=== PATIENT | female | born 1990 ===

== ENCOUNTER 2022-05-10 11:21 | Emergency (ER) | payer OTHER, SELFPAY ==
--- NOTE | ~2022-05-10 | XR_ITS ---
EXAMINATION: XR CHEST CLINICAL INFORMATION: Cough and shortness of breath. COMPARISON: None TECHNIQUE: 2 views of the chest were obtained. FINDINGS: No significant abnormality is noted involving the heart, lungs, mediastinum, bony thorax or soft tissues. XR/XR chest 2V IMPRESSION: Unremarkable examination.
[2022-05-10 12:34] VITALS: BP 149/93; PULSE 88; RESP 20; O2SAT 97; BMI 30.6
[2022-05-10 13:12] LABS: COVID-19 Test Negative (Negative); Strep A Nucleic Acid Negative (Negative)
--- NOTE | 2022-05-10 14:11 | ED.URI ---
HPI - URI/Sore Throat General Chief Complaint: Upper Respiratory Symptoms Stated Complaint: cough fever chest pressure Time Seen by Provider: 05/10/22 13:32 Source: patient Mode of arrival: ambulatory Limitations: no limitations History of Present Illness HPI Narrative: Patient presents emergency department for evaluation of upper respiratory symptoms. She reports 4 days of cough, sore throat, congestion. Her daughter has been ill with similar symptoms persist week. Has been unable to be seen at other emergency department urgent cares. Reports a history of asthma, that is only typically exacerbated during episodes of illness. She has had some associated shortness of breath at night when her coughing is particularly worse. Denies fevers, chills, nasal congestion, chest pain, palpitations, difficulty breathing, nausea, vomiting, abdominal pain. Related Data Previous Rx's Medication Instructions Recorded albuterol sulfate 90 mcg/actuation 2 puff inhalation Q4-6H PRN 05/10/22 aerosol inhaler shortness of breath or wheezing #6.7 grams prednisone 20 mg tablet 40 mg PO DAILY 5 days #10 tabs 05/10/22 Allergies Allergy/AdvReac Type Severity Reaction Status Date / Time ciprofloxacin [From CIPRO] Allergy Unknown SOB HIVES Unverified 04/03/20 18:58 latex [LATEX] Allergy Unknown HIVES Unverified 04/03/20 18:58 levofloxacin [From LEVAQUIN] Allergy Unknown SOB,HIVES Unverified 04/03/20 18:58 sulfamethoxazole Allergy Unknown SOB HIVES Unverified 04/03/20 18:58 [From BACTRIM] trimethoprim [From BACTRIM] Allergy Unknown SOB HIVES Unverified 04/03/20 18:58 Review of Systems Review of Systems: Constitutional: No fever. No chills. No weakness. Positive fatigue. ENT/ Mouth: No Ear Pain, no Nasal Congestion, positive sore throat, No Rhinorrhea, No Swallowing Difficulty Skin: No rash or itching. Cardiovascular: No chest pain. No palpitations. Respiratory: No shortness of breath. Positive cough. Positive sputum production. Gastrointestinal: No nausea. No vomiting. No diarrhea. No abdominal pain. Genitourinary: No burning micturition. No urinary frequency. Neurologic: No headache. No dizziness. No syncope. No numbness or tingling in the extremities. Musculoskeletal: No muscle pain. No back pain. No joint pain or stiffness. Yes all other systems are reviewed and are negative [facility] Past Medical History Attestation statement: The following information was validated with the patient. Source: old records reviewed Social History Social History Advance Directives: No Advance Directives Information Provided: No Physical Exam Vital Signs: Vital Signs: Last Vital Signs Pulse 88 05/10/22 12:34 Resp 20 05/10/22 12:34 BP 149/93 H 05/10/22 12:34 Pulse Ox 97 05/10/22 12:34 O2 Del Method 05/10/22 12:34 BMI result Body Mass Index 30.6 Vital signs have been reviewed as normal and appeared to be correct. Blood pressure normal.? Heart rate normal.? Respiration rate normal. Temperature normal.? Oxygen saturation normal. Appearance: Alert.?Oriented to person, place and time. No acute distress.?Normal affect. Eyes: Pupils equal, round and reactive to light.? ENT: TM normal bilaterally. Pharynx normal.?? Neck: Normal inspection.? Neck supple.??No cervical adenopathy CVS: Heart sounds normal. Normal heart rate and rhythm.? Pulses normal.?? Respiratory: No respiratory distress.? Lung sounds clear to auscultation bilaterally, diminished at the bases?? Abdomen: Soft and non-tender. Normoactive bowel sounds. Skin: Skin warm and dry.? Normal skin color.? ? Extremities: No lower extremity edema.? Neuro: Moves all extremities spontaneously. Sensation intact bilaterally. No motor deficits. Ambulates with normal steady gait. Course Course Course Narrative: Patient is a 31-year-old female with a past medical history of asthma, glucose intolerance, hypertension, presenting for evaluation of upper respiratory symptoms. COVID-19 testing negative. Strep testing negative. Chest x-ray reveals no acute cardiopulmonary process. At this time history and physical exam not consistent with ACS/PE/pneumonia. PERC negative. Well-appearing overall but does appear fatigued, she is nontoxic, afebrile, no tachycardia or tachypnea/hypoxia. Speaking clear full sentences, ambulatory with steady gait. Suspect upper respiratory infection at this time. Discussed conservative treatment including rest, hydration, Tylenol/ibuprofen as needed for fever and body aches, saline nasal spray, humidifier, [id number] cold medication. Given her history of asthma will prescribe albuterol inhaler as well as course of prednisone. Advised to follow-up with primary care provider as needed, discussed reasons to return back to the emergency department. All questions were answered. Patient discharged home in stable condition. MDM - URI/Sore Throat Medical Records Attestation: I reviewed the patient's medical records. Lab Data Attestation: I reviewed the patient's lab results. Labs: Lab Results 05/10/22 05/10/22 Range/Units 12:49 12:49 COVID-19 (ART) Negative (Negative) COVID-19 Clin Com See Note S. pyogenes GrpA SHEILA Negative (Negative) Imaging Data Chest x-ray: Radiologist's impression: XR/XR chest 2V IMPRESSION: Unremarkable examination. Discharge Plan Discharge Clinical Impression: Upper respiratory infection Patient Disposition: Home, Self-Care Instructions: Upper Respiratory Infection (ED) Additional Instructions: New prescriptions for an albuterol inhaler and prednisone were sent to pharmacy. Be sure to rest, stay well hydrated drinking plenty of fluids, eat small frequent meals. Tylenol/ibuprofen can be used as needed for fever/pain. Emcr-[id number]-[id number] cold medications may be helpful as well for symptoms. Saline nasal spray, humidifier may be helpful for nasal congestion. You may return to the emergency department with any new or worsening symptoms or concerns. Follow-up with your primary care provider as needed. Prescriptions: New albuterol sulfate 90 mcg/actuation HFA aerosol inhaler 2 puff inhalation Q4-6H PRN (Reason: shortness of breath or wheezing) Qty: 6.7 0RF prednisone 20 mg tablet 40 mg PO DAILY 5 Days Qty: 10 0RF Referrals: Physician,Unknown J [Primary Care Provider] - Interventions: ED Discharge Assessment Last Done: 05/10/22 15:02 Discharge Date/Time: 05/10/22 15:02
== END 2022-05-10 15:02 | disposition home or self-care (01) ==
PROVIDERS: Emergency Provider Emergency Medicine
DX: J06.9 Acute upper respiratory infection, unspecified (principal); R05.9 Cough, unspecified; Z20.822 Contact with and (suspected) exposure to COVID-19
CPT/HCPCS: 71046; 87635; 87651; 99282; 99283

== ENCOUNTER 2024-03-27 09:03 | Emergency (ER) | payer MEDICAID, SELFPAY ==
--- NOTE | ~2024-03-27 | XR_ITS ---
EXAMINATION: XR CHEST CLINICAL INFORMATION: Chest pain COMPARISON: 05/10/2020 TECHNIQUE: PA and lateral views of the chest FINDINGS: Diffuse subtle foci of mild subsegmental linear atelectasis is suspected in both lungs. No consolidation is identified. No pneumothorax or pleural effusion. Cardiac and mediastinal contours are normal. No acute osseous findings. XR/XR chest 2V IMPRESSION: No acute pulmonary findings. Few foci of subsegmental atelectasis. Electronically signed by: Steve Richards MD 03/27/2024 12:07 PM EDT
--- NOTE | 2024-03-27 09:07 | ECG_ITS ---
Test Reason : cp Blood Pressure : / mmHG Vent. Rate : 096 BPM Atrial Rate : 096 BPM P-R Int : 144 ms QRS Dur : 088 ms QT Int : 372 ms P-R-T Axes : 004 058 045 degrees QTc Int : 469 ms Normal sinus rhythm Normal ECG No previous ECGs available Referred By: Nadia Hoffman Electronically Signed By:RENATA HOUSTON
[2024-03-27 09:11] VITALS: BP 160/111; PULSE 114; RESP 20; TEMP 36.8; O2SAT 97; BMI 33.4
[2024-03-27 09:35] LABS: MANUAL DIFF FLAG NO
[2024-03-27 09:36] LABS: Basophils Percent Auto 0.4 % (0-2); Eosinophils Absolute Auto 0.2 X10*3/uL (0.0-0.4); Eosinophils Percent Auto 1.4 % (0-4); Hematocrit 41.9 % (37.0-47.0); Hemoglobin 14.5 g/dl (12.0-16.0); Imm Gran Abs Auto 0.04 X10*3/uL (0.00-0.03); Imm Gran Pct Auto 0.4 % (0.0-0.4); Lymphocytes Absolute Auto 1.5 X10*3/uL (1.2-4.9); Lymphocytes Percent Auto 13.3 % (20-40); Mean Corpuscular HGB Conc 34.6 g/dl (31.0-35.0); Mean Corpuscular Hemoglobin 31.6 pg (27.0-33.0); Mean Corpuscular Volume 91.3 fL (80.0-98.0); Mean Platelet Volume 11.2 fL (9.4-12.3); Monocytes Absolute Auto 0.7 X10*3/uL (0.1-1.2); Monocytes Percent Auto 6.7 % (2-11); Neutrophils Absolute Auto 8.5 x10*3/uL (2.0-8.3); Neutrophils Percent Auto 77.8 % (45-73); Platelet Count 165 X10*3/uL (160-400); Red Blood Count 4.59 X10*6/uL (4.20-5.50); Red Cell Distribution Width 13.1 % (11.0-16.0); White Blood Count 10.9 X10*3/uL (4.8-10.8)
--- NOTE | 2024-03-27 10:13 | ED.CHESTPAIN ---
HPI - Chest Pain General Chief Complaint: Upper Respiratory Symptoms Stated Complaint: Chest heaviness, congestion Time Seen by Provider: 03/27/24 09:44 Source: patient, RN notes reviewed and old records reviewed Mode of arrival: ambulatory Limitations: no limitations History of Present Illness ED Provider: Erin Juarez PA-C HPI narrative: 33 female with hx of anxiety, asthma, HTN, comes in with chest pain/heaviness/congestion, cough and chest tightness waking her up in a panic state at 0400am. Reports she has had asthma symptoms recently but has not sought any asthma related interventions from a provider- she just gets through that like I do with my panic and anxiety . States she had some nasal congestion a few days ago, maybe more like 4-5 days, this is really where it started and then 2 days ago this congestion moved into her chest. Reports her cough has been increasing and is productive x 2 days yellowish color, moderate amounts. Reports fevers, says was feeling warm but denies checking temperature. States short of breath when coughing. Denies recent sick contacts. States did not take her BP medication this am, opted to come into ED for sick visit instead. Denies any epigastric pain or discomfort. States she tried using some Vicks to no avail, this made her feel worse, and she was apprehensive to use her albuterol MDI- states using this makes her panic/anxiousness. MD complaint: chest heaviness Onset (ago): day(s) Timing of current episode: episodic Prior episodes: Yes Onset: during exertion and awoke with symptoms Pain radiation: none Quality: tightness and heaviness Relieving factors: rest Exacerbating factors: exertion, inspiration and movement Associated symptoms: cough Treatment prior to arrival: none Related Data Previous Rx's ?Medication ?Instructions ?Recorded albuterol sulfate 90 mcg/actuation 2 puff inhalation Q4-6H PRN 05/10/22 aerosol inhaler shortness of breath or wheezing #6.7 grams prednisone 20 mg tablet 40 mg (2 x 20 mg) PO DAILY 5 days 05/10/22 #10 tabs albuterol sulfate 0.63 mg/3 mL 0.63 mg (3 mL) inhalation Q6H #75 03/27/24 solution for nebulization mL azithromycin 250 mg tablet See Rx Instructions PO .COMPLEX #6 03/27/24 (Zithromax Z-Min) tabs hydrocodone-homatropine 5 mg-1.5 5 ml PO Q6H PRN cough #60 mL 03/27/24 mg/5 mL (5 mL) oral syrup (Hycodan) prednisone 20 mg tablet 40 mg (2 x 20 mg) PO DAILY #10 tabs 03/27/24 Allergies Allergy/AdvReac Type Severity Reaction Status Date / Time ciprofloxacin [From CIPRO] Allergy Unknown SOB HIVES Verified 03/27/24 09:14 latex [LATEX] Allergy Unknown HIVES Verified 03/27/24 09:14 levofloxacin [From LEVAQUIN] Allergy Unknown SOB,HIVES Verified 03/27/24 09:14 sulfamethoxazole Allergy Unknown SOB HIVES Verified 03/27/24 09:14 [From BACTRIM] trimethoprim [From BACTRIM] Allergy Unknown SOB HIVES Verified 03/27/24 09:14 Review of Systems Review of Systems: Yes all other systems are reviewed and are negative [facility] Social History Social History Advance Directives: No Advance Directives Information Provided: Yes Physical Exam Vital Signs: Vital Signs: Last Vital Signs Temp 98.6 F 03/27/24 13:48 Pulse 108 H 03/27/24 13:48 Resp 18 03/27/24 13:48 BP 163/94 H 03/27/24 13:48 Pulse Ox 96 03/27/24 13:48 O2 Del Method Room Air 03/27/24 13:48 BMI result Body Mass Index 33.4 Appearance: Alert. Oriented X3. No acute distress. Head: normocephalic, atraumatic. Eyes: Pupils equal, round and reactive to light. ENT: Pharynx normal. No tonsillar swelling or exudate. Neck: Normal inspection. Neck supple. CVS: Normal rhythm, tachycardic. Pulses normal. Respiratory: No respiratory distress at rest, hacking cough- nonproductive, breath sounds CTA, dim bases Abdomen: Soft and nontender. +BS x4 Skin: Skin warm and dry. Normal skin color. Normal skin turgor. No rashes. Extremities: No lower extremity edema. No joint swelling. Neuro/psych: Oriented X 3. No motor deficit. No sensory deficit. CN II-XII intact. Normal speech and cognition. Medications Administered Discontinued Medications Generic Name Dose Route Start Last Admin Trade Name Nicho PRN Reason Stop Dose Admin Albuterol/Ipratropium 3 ml 03/27/24 12:24 03/27/24 12:27 Albuterol/Iprat 2.5/0.5mg 3 Ml Ampul.Neb INHALE 03/27/24 12:25 3 ml ONCE ONE Administration Amlodipine Besylate 5 mg 03/27/24 10:24 03/27/24 10:34 Amlodipine Besylate 5 Mg Tablet PO 03/27/24 10:25 5 mg ONCE ONE Administration Protocol Guaifenesin/Dextromethorphan 5 ml 03/27/24 10:27 03/27/24 10:34 Guaifenesin Dm 100/10/5 Ml 5 Ml Syrup PO 03/27/24 10:28 5 ml ONCE ONE Administration Prednisone 40 mg 03/27/24 11:48 03/27/24 12:09 Prednisone 20 Mg Tablet PO 03/27/24 11:49 40 mg ONCE ONE Administration Medical Decision Making Medical Decision Making MDM Narrative: 33 female with hx of anxiety, asthma, HTN, comes in with chest pain/heaviness/congestion, cough and chest tightness waking her up in a panic state at 0400am. At present is not toxic appearing, has intermittent coughing fits during assessment, not short of breath until speaking and explaining current situation. Frequently references anxiety and asthma histories during encounters, states has had some asthma symptoms recently as last week although denies seeking treatment for those asthma symtpoms. Reports has albuterol MDI which is 2 years , and this causes her increased anxiety- she reports preference of machine breathing treatments of the MDI. Lungs are CTA with diminished bases, no wheezing noted. Cough is non-productive while in ED, pt does uses excessive force to cough and this causes her to expel small amount of sputum and saliva into emesis bag. Afebrile, CXR reviewed, no evidence of PNA. Viral serology negative, labs show mild leukocytic, EKG is non-eschemic. Requested breathing treatment, dose of prednisone also provided at her request. Pt was given normal HTN medication and dose, as well as cough medicince with codeine to help current symptoms. On re-eval, pt is symptomatically somewhat improved per her report, appears to be more at rest, coughing has diminshed, is not SOB, or tachypneic. Lung sounds improved CTA all marie. Will treat for acute bronchitis. Return to clinic precautions, and red flags symptoms reviewed and discussed. Differential Diagnosis Differential Diagnoses: The differential diagnosis associated with the presentation includes PNA, bronchitis, asthma exacerbation, URI, FLU, COVID. Low clinical suspicions for OK and PE. Admission/Observation Consideration of admission/observation: Escalation of care including admission/observation considered Lab Data MDM Lab Attestation statement: I reviewed the patient's lab results. Mild leukocytosis 03/27/24 09:29 03/27/24 09:29 Labs: Lab Results 03/27/24 Range/Units 09:29 WBC 10.9 H (4.8-10.8) X10*3/uL RBC 4.59 (4.20-5.50) X10*6/uL Hgb 14.5 (12.0-16.0) g/dl Hct 41.9 (37.0-47.0) % MCV 91.3 (80.0-98.0) fL MCH 31.6 (27.0-33.0) pg MCHC 34.6 (31.0-35.0) g/dl RDW 13.1 (11.0-16.0) % Plt Count 165 (160-400) X10*3/uL MPV 11.2 (9.4-12.3) fL Immature Gran % (Auto) 0.4 (0.0-0.4) % Neut % (Auto) 77.8 H (45-73) % Lymph % (Auto) 13.3 L (20-40) % [place] % (Auto) 6.7 (2-11) % Eos % (Auto) 1.4 (0-4) % Baso % (Auto) 0.4 (0-2) % Lymph # (Auto) 1.5 (1.2-4.9) X10*3/uL [place] # (Auto) 0.7 (0.1-1.2) X10*3/uL Eos # (Auto) 0.2 (0.0-0.4) X10*3/uL Baso # (Auto) 0.0 (0.0-0.2) X10*3/uL Abs Immat Gran (auto) 0.04 H (0.00-0.03) X10*3/uL Absolute Neuts (auto) 8.5 H (2.0-8.3) x10*3/uL Absolute Nucleated RBC 0.000 (0.0-0.012) X10*3/uL Nucleated RBC % (auto) 0.0 (0.0-0.2) /100WBC Sodium 138 (135-145) mmol/L Potassium 4.0 (3.3-5.1) mmol/L Chloride 109 H (96-108) mmol/L Carbon Dioxide 20 L (22-29) mmol/L Anion Gap 13 (12-20) BUN 9 (9-16) mg/dL Creatinine 0.74 (0.5-1.4) mg/dL Estim Creat Clear Calc 102.7 Estimated GFR > 60 Random Glucose 123 H (60-115) mg/dL Calcium 9.6 (8.4-10.2) mg/dL Magnesium 2.0 (1.6-2.6) mg/dL Total Bilirubin 0.7 (0.0-1.0) mg/dL AST 27 (5-31) U/L ALT 58 H (0-31) U/L Alkaline Phosphatase 61 (39-117) U/L Troponin I High Sens 6.6 (<3.5-17.0) ng/L Total Protein 7.1 (6.5-8.0) g/dL Albumin 4.3 (3.5-5.0) g/dL Beta HCG, Quant < 2 mIU/mL Influenza Type A (PCR) NEGATIVE (Negative) Influenza Type B (PCR) NEGATIVE (Negative) RSV RNA Qual (PCR) NEGATIVE (Negative) SARS-CoV-2 RNA (RT-PCR) NEGATIVE (Negative) Independent Interpretation I performed an independent interpretation of an: EKG and Plain X-Ray Interpretation: EKG with normal sinus rhythm, ventricular rate 96 beats per minute, no ST segment elevations or depressions. No ectopy. Normal QTC X-ray reviewed, no focal opacity to suggest pneumonia Radiology Impression Discussion of test interpretation with radiology: I have reviewed the radiologist's reading. Independent Historian Clinical information obtained from an independent historian. History obtained from or confirmed by: Spouse External Record Review External record reviewed: Outpatient record, Prior outpatient labs and Prior outpatient radiology Tests considered The following testing was considered but not selected: CTA considered however low clinical suspicion for pulmonary embolism Prescription Management I considered prescription management with: Pain Medication and Antibiotic Chronic Conditions Patient?s care impacted by: Hypertension and Other (asthma) Critical Care Time Critical Care Time Critical Care Time: No Discharge Plan Discharge Clinical Impression: Bronchitis Patient Disposition: Home, Self-Care Instructions: Acute Bronchitis (ED) Additional Instructions: Your chest x-ray today did not show any evidence of pneumonia. You tested negative for COVID, flu, RSV. Your lab work was unremarkable. Your EKG did not show any concerning changes. Take the prescribed antibiotics as directed, complete the entire course and do not miss any doses Take the prescribed steroids for inflammation in your lungs. Start them tomorrow morning, your given 1st dose today in the ER. Use the albuterol nebulizer treatments every 4-6 hours as needed for shortness of breath and wheezing. Take the prescribed cough medication as needed for coughing, this can make you tired as it has a narcotic in it. Do not drive after taking this medication. Follow-up with your primary care doctor. If you develop new or worsening symptoms call 911 or come back to the ER for further evaluation. Prescriptions: New prednisone 20 mg tablet 40 mg PO DAILY Qty: 10 0RF azithromycin [Zithromax Z-Min] 250 mg tablet See Rx Instructions .ROUTE .COMPLEX Qty: 6 0RF Rx Instructions: take 500 mg today (day 1), then 250 mg for 4 days (days 2-5) albuterol sulfate 0.63 mg/3 mL solution for nebulization 0.63 mg inhalation Q6H Qty: 75 0RF hydrocodone-homatropine [Hycodan] 5-1.5 mg/5 mL (5 mL) syrup 5 ml PO Q6H PRN (Reason: cough) Qty: 60 0RF Rx Instructions: Partial Fill upon patient request. No Action albuterol sulfate 90 mcg/actuation HFA aerosol inhaler 2 puff inhalation Q4-6H PRN (Reason: shortness of breath or wheezing) Qty: 6.7 0RF prednisone 20 mg tablet 40 mg PO DAILY 5 Days Qty: 10 0RF Stand Alone Forms: Work/School Release Interventions: ED Discharge Assessment Last Done: 03/27/24 13:48 Discharge Date/Time: 03/27/24 13:48 Print Language: Kinyarwanda
[2024-03-27 10:17] LABS: Influenza A PCR NEGATIVE (Negative); Influenza B PCR NEGATIVE (Negative); Resp Syncy Virus RNA Qual PCR NEGATIVE (Negative); SARS COV2 PCR INHOUSE NEGATIVE (Negative)
[2024-03-27 10:19] LABS: Alanine Aminotransferase 58 U/L (0-31); Albumin Level 4.3 g/dL (3.5-5.0); Alkaline Phosphatase 61 U/L (39-117); Anion Gap 13 (12-20); Aspartate Amino Transferase 27 U/L (5-31); Bilirubin Total 0.7 mg/dL (0.0-1.0); Blood Urea Nitrogen 9 mg/dL (9-16); Calcium 9.6 mg/dL (8.4-10.2); Carbon Dioxide 20 mmol/L (22-29); Chloride 109 mmol/L (96-108); Creatinine Clr Calc Pharmacy 102.7; Estimated Glomerular Filt Rate > 60; Glucose Random 123 mg/dL (60-115); Sodium 138 mmol/L (135-145); Total Protein 7.1 g/dL (6.5-8.0)
[2024-03-27 10:20] LABS: HCG Quantitative < 2 mIU/mL; Troponin-I High Sensitivity 6.6 ng/L (<3.5-17.0)
[2024-03-27 10:34] VITALS: BP 159/103
[2024-03-27] MEDS: guaiFENesin DM 100/10/5 ML 5 ML SYRUP PO (10:34)
[2024-03-27] MEDS: amLODIPine Besylate 5 MG TABLET PO (10:34)
[2024-03-27 12:08] VITALS: BP 160/103; PULSE 106; RESP 20; TEMP 37; O2SAT 96
[2024-03-27] MEDS: predniSONE 20 MG TABLET 40 MG PO (12:09)
[2024-03-27] MEDS: Albuterol/Iprat 2.5/0.5MG 3 ML AMPUL.NEB INHALE (12:27)
[2024-03-27 12:30] VITALS: PULSE 89; RESP 18
[2024-03-27 13:40] VITALS: BP 163/94; PULSE 108; RESP 18; O2SAT 96
[2024-03-27 13:48] VITALS: BP 163/94; PULSE 108; RESP 18; TEMP 37; O2SAT 96
== END 2024-03-27 13:48 | disposition home or self-care (01) ==
PROVIDERS: Physician Assistant Medical; Emergency Provider Emergency Medicine Emergency Medical Services
DX: J40 Bronchitis, not specified as acute or chronic (principal); Z03.818 Encounter for observation for suspected exposure to other biological agents ruled out; R05.9 Cough, unspecified; Z79.899 Other long term (current) drug therapy
CPT/HCPCS: 0241U; 71046; 80053; 83735; 84484; 84702; 85025; 93005; 94640; 99284

== ENCOUNTER 2025-01-14 11:12 | Inpatient (IN) | payer MEDICAID, SELFPAY ==
[2025-01-14] VITALS (7 sets, daily range): BP systolic 104–131; BP diastolic 40–81; PULSE 93–110; RESP 15–18; TEMP 36.2–37.1; O2SAT 94–97; BMI 31.2
--- NOTE | ~2025-01-14 | XR_ITS ---
EXAMINATION: XR CHEST CLINICAL INFORMATION: cough COMPARISON: March 27, 2024 TECHNIQUE: 2 views of the chest were obtained. FINDINGS: Heart and the stomach contours are within normal limits. Lungs are clear and well expanded. There is no sign of a pleural effusion. Bony elements are unremarkable. XR/XR chest 2V IMPRESSION: No acute disease Electronically signed by: Andre Callejas MD 01/14/2025 01:08 PM EDT
--- NOTE | ~2025-01-14 | CT_ITS ---
EXAMINATION: CT ANGIOGRAM CHEST CLINICAL INFORMATION: Dyspnea, pleuritic pain. COMPARISON: None available. TECHNIQUE: Multiple axial images were obtained through the chest after the administration of 50 mL of Omnipaque 350 intravenous contrast. Extensive vascular post-processing including two-dimensional and three-dimensional reformatted images were created and reviewed on an independent workstation. This CT examination was performed using dose optimization techniques as appropriate, variously including the following: *Automated exposure control *Adjustment of mA and/or kV according to patient size (this includes techniques or standardized protocols for targeted exams where dose is matched to indication/reason for exam; i.e. extremities or head) *Use of iterative reconstruction technique DLP: FINDINGS: VASCULAR: There is good opacification of pulmonary artery and its branches without intraluminal filling defect or narrowing. Thoracic aorta is of normal caliber. There is no aneurysm or dissection seen. There is a three-vessel branching of the aortic arch. SVC is normal caliber. Heart size is normal. No pericardial effusion seen. Nonvascular: Lungs are expanded with patchy reticular nodular and groundglass nodules in right upper lobe. No abnormal size mediastinal or hilar lymph nodes. The central trachea and the bronchi is widely patent. Thyroid lobes are symmetrical and normal. There is no pleural effusion, thickening or plaques. The axilla and the chest wall is unremarkable. Visualized liver is diffusely originated no focal lesion seen. Gallbladder, spleen, pancreas and adrenal glands unremarkable. No aggressive lytic or sclerotic process seen. CT/CT angio chest PE protocol IMPRESSION: No evidence of PE. No aortic aneurysm or dissection. Right upper lobe groundglass nodules and reticular changes likely developing infiltrate or interstitial pneumonitis. Rest of the lungs are clear. No abnormal mediastinal or hilar adenopathy. Fleischner guidelines were followed. Electronically signed by: Jerel Esqueda MD 01/14/2025 04:44 PM EDT
--- NOTE | ~2025-01-14 | CT_ITS ---
CLINICAL HISTORY: intractable vomiting, abd pain CT abdomen and pelvis with contrast Comparison: None provided Findings: The lung bases exhibit patchy and somewhat nodular airspace densities bilaterally. The liver, gallbladder, spleen, adrenal glands and pancreas are unremarkable. Kidneys, ureters and bladder are unremarkable. No bowel obstruction or free air. Mild diverticulosis. No evidence of diverticulitis. Normal appendix. The uterus is unremarkable. Left adnexal cysts. No acute osseous finding. Impression: Abnormal patchy bibasilar densities consistent with multifocal pneumonia. Follow-up recommended to ensure resolution. No definite acute process within the abdomen or pelvis. Left adnexal cysts are noted. This document has been electronically signed by: Iván Tovar MD on 01/15/2025 18:46:23
--- NOTE | 2025-01-14 11:16 | ECG_ITS ---
Test Reason : chest pain Blood Pressure : */* mmHG Vent. Rate : 96 BPM Atrial Rate : 96 BPM P-R Int : 138 ms QRS Dur : 88 ms QT Int : 360 ms P-R-T Axes : 10 67 53 degrees QTcB Int : 454 ms Normal sinus rhythm Normal ECG When compared with ECG of 27-Mar-2024 09:53, No significant change was found Referred By: Mona Valenzuela Electronically Signed By: KARI DINERO MD
--- NOTE | 2025-01-14 12:09 | ED.GENADULT ---
HPI - General Adult General Chief complaint: Chest Pain Stated complaint: vomiting chills fever chest pain Time Seen by Provider: 01/14/25 12:42 Source: patient and old records reviewed Mode of arrival: ambulatory Limitations: no limitations History of Present Illness ED Provider: DOROTEO WEEMS narrative: 34yo female with PMH of asthma, recent perdicarditis, EF 20-25% at [facility] with normal coronaries - cath done at [facility] also had ECHO 12/25 she is still pending workup for other causes per notes including amyloidosis. 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 She tells me she has a brother who from CHF. She has no hx of cocaine abuse or alcohol abuse. She reports for the past two days she has worsening breathing, sputum production, fever to 101 - no sick contacts. She notes she has not gained weight and has no leg swelling. She notes she has not taken her pills today due to coughing and vomiting as well. Has yellow sputum. she does tell me preceding her cardiomyopathy dx she was diagnosed with rhinovirus complaint: dyspnea, fevers, cough Onset (ago): day(s) (2) Location: chest Radiation: non-radiation Severity: mild Quality: aching Pain Consistency: intermittent Relieving factors: none Exacerbating factors: other (coughing. ) Associated symptoms: fever/chills, loss of appetite, nausea/vomiting and shortness of breath Treatments prior to arrival: none Related Data Previous Rx's ?Medication ?Instructions ?Recorded albuterol sulfate 90 mcg/actuation 2 puff inhalation Q4-6H PRN 05/10/22 aerosol inhaler shortness of breath or wheezing #6.7 grams prednisone 20 mg tablet 40 mg (2 x 20 mg) PO DAILY 5 days 05/10/22 #10 tabs albuterol sulfate 0.63 mg/3 mL 0.63 mg (3 mL) inhalation Q6H #75 03/27/24 solution for nebulization mL azithromycin 250 mg tablet See Rx Instructions PO .COMPLEX #6 03/27/24 (Zithromax Z-Min) tabs benzonatate 100 mg capsule 100 mg PO TID PRN cough #20 caps 03/27/24 hydrocodone-homatropine 5 mg-1.5 5 ml PO Q6H PRN cough #60 mL 03/27/24 mg/5 mL (5 mL) oral solution (Hycodan) prednisone 20 mg tablet 40 mg (2 x 20 mg) PO DAILY #10 tabs 03/27/24 Allergies Allergy/AdvReac Type Severity Reaction Status Date / Time ciprofloxacin (From CIPRO) Allergy Unknown SOB HIVES Verified 01/14/25 12:15 latex (LATEX) Allergy Unknown HIVES Verified 01/14/25 12:15 levofloxacin (From LEVAQUIN) Allergy Unknown SOB,HIVES Verified 01/14/25 12:15 sulfamethoxazole (From Allergy Unknown SOB HIVES Verified 01/14/25 12:15 BACTRIM) trimethoprim (From BACTRIM) Allergy Unknown SOB HIVES Verified 01/14/25 12:15 Review of Systems Review of Systems: Constitutional : pos Fever, No Chills ENT/Mouth : No Hoarseness, No sore throat, No Rhinorrhea Eyes: No Redness, No Discharge, No Vision Changes Cardiovascular : No Chest Pain, positive SOB, positive Dyspnea on Exertion, No Edema Respiratory : positive Cough, pos Sputum, positive Wheezing, Gastrointestinal : No Nausea, No Vomiting, No Diarrhea, No abdominal Pain Genitourinary : No Dysuria, No Hematuria Musculoskeletal : No joint pain, No Myalgias Skin : No rash Neuro : No Weakness, No Numbness, No Headache Psych : No anxiety, depression Heme/Lymph: No Bruising, No Bleeding Endocrine : No Polyuria, No Polydipsia All other systems reviewed and are negative [facility] Past Medical History Attestation statement: The following information was validated with the patient. Source: old records reviewed Medical History Nonischemic cardiomyopathy Asthma Social History Social History (Updated 01/14/25 @ 13:46 by Mona Valenzuela DO) Patient Tobacco Use Status: Never used Tobacco Advance Directives: No Advance Directives Information Provided: Yes Do you have a plan to hurt others: No Plan Physical Exam ED Vital Signs: Vital Signs - 24 hr 01/14/25 12:11 01/14/25 13:54 01/14/25 14:09 Temperature 97.6 F Pulse Rate 94 94 Respiratory Rate 16 16 Blood Pressure 131/81 131/52 L Pulse Oximetry 97 Oxygen Delivery Method Room Air 01/14/25 15:40 01/14/25 16:54 Temperature 98.7 F Pulse Rate 110 H Respiratory Rate 15 Blood Pressure 106/40 L Pulse Oximetry 95 95 Oxygen Delivery Method Room Air BMI result Body Mass Index 31.2 Appearance: Alert. Oriented X3. Mild acute distress. Eyes: Pupils equal, round and reactive to light. ENT: Pharynx normal. Neck: Normal inspection. Neck supple. CVS: tachycardic heart rate and rhythm. Pulses normal. Respiratory:Mild respiratory distress - tachypneic, splinting Breath sounds diminished but no rales noted Abdomen: Soft and nontender. Skin: Skin warm and dry. Normal skin color. Normal skin turgor. Extremities: No lower extremity edema. Neuro: Oriented X 3. No motor deficit. No sensory deficit. CN2-12 intact Course Course Course Narrative: RME performed by Nadia Hoffman PA-C. Patient is a 34 year old assigned female at presenting to the emergency department with nausea, vomiting, and feeling generally unwell. Patient states that over the last 2 days she has had nausea, vomiting, and felt generally unwell, unable to keep anything down. Detailed physical exam and review of systems are deferred to the curam developer. EKG, labs, swabs ordered. Patient placed back in the waiting room pending room availability and results. Reevaluation(s) Reevaluation #1: patient drinking fluids but still has cough VS stable Reevaluation #2: still tachy and wheezy with some cough she is able to tolerate some PO she appears tachypneic at rest Medications Administered Discontinued Medications Generic Name Dose Route Start Last Admin Trade Name Alexq PRN Reason Stop Dose Admin Albuterol Sulfate 2.5 mg/ 0 mg 01/14/25 14:06 01/14/25 14:08 Albuterol/Ipratropium 3 ml INHALE 01/14/25 14:07 1 dose ONCE ONE Administration Furosemide 20 mg 01/14/25 13:07 01/14/25 13:54 Furosemide 20 Mg/2 Ml Vial IVPUSH 01/14/25 13:08 20 mg ONCE ONE Administration Protocol Iohexol 100 ml 01/14/25 14:55 01/14/25 14:58 Iohexol 350 Mg/Ml 100 Ml Infus..Btl IV 01/14/25 14:56 65 ml ONCE ONE Administration Methylprednisolone Sodium Succinate 60 mg 01/14/25 13:32 01/14/25 13:54 Methylprednisolone Sod Succ 125 Mg/2 Ml Vial IVPUSH 01/14/25 13:33 60 mg ONCE ONE Administration Ondansetron HCl 4 mg 01/14/25 13:07 01/14/25 13:53 Ondansetron Hcl 4 Mg/2 Ml Vial IVPUSH 01/14/25 13:08 4 mg ONCE ONE Administration Procedures Procedure Narrative Procedure Narrative: EMERGENCY ULTRASOUND INTERPRETATION-Limited Echocardiography?- limited as patient kept coughing and could not maintain The study reveals:? Impression: depressed LV FUNCTION, NO RV DYSFUNCTION, NO PERICARDIAL EFFUSION Emergent Cardiac for Indication:?dyspnea hx of pericardial effusion Views Used: PLAX, PSSA, A4, SX, IVC Pericardial Effusion/Tamponade Findings: NONE Global LV Fxn: depressed Performed by: DOROTEO Date: 01/14/25 Time: 138pm CPT:11545; Reference Codes? [email or web address] Medical Decision Making Medical Decision Making MDM Narrative: 34yo female with PMH of asthma, recent perdicarditis, EF 20-25% at [facility] with normal coronaries - cath done at [facility] also had ECHO 12/25 now here with no leg edema no rales on exam and no weight gain but reports fevers, sputum and cough. She has rib pain as well and it hurts to breathe. At this time will obtain bedside ECHO, CXR, CTA:PE for VTE/pneumonia and obtain BNP and troponin. I am going to give her lasix, nebs, IV steroids given her asthma and diminished lung sounds. She will get US to eval for large pericardial effusion. She will need IV lasix as well given she could not take her dose this AM. Differential Diagnosis Differential Diagnoses: The differential diagnosis associated with the presentation includes asthma, CHF, VTE, pleurisy, pericardial effusion, viral syndrome Admission/Observation Consideration of admission/observation: Escalation of care including admission/observation considered still tachy and tachypnea at baseline CTA shows possible start of pneumonia - infection suspected at 453pm start IV abx/cultures and lactic acid patient states she is too weak and unable to take her medications she states she doesn't feel safe going home. Consult Healthcare Provider Management of the patient was discussed with: Hospitalist (will admit) Lab Data MDM Lab Attestation statement: I reviewed the patient's lab results. 01/14/25 12:32 01/14/25 12:32 Labs: Lab Results 01/14/25 Range/Units 12:32 WBC 7.7 (4.8-10.8) X10*3/uL RBC 4.70 (4.20-5.50) X10*6/uL Hgb 14.7 (12.0-16.0) g/dl Hct 41.8 (37.0-47.0) % MCV 88.9 (80.0-98.0) fL MCH 31.3 (27.0-33.0) pg MCHC 35.2 H (31.0-35.0) g/dl RDW 14.2 (11.0-16.0) % Plt Count 153 L (160-400) X10*3/uL MPV 11.3 (9.4-12.3) fL Immature Gran % (Auto) 0.5 H (0.0-0.4) % Neut % (Auto) 77.1 H (45-73) % Lymph % (Auto) 11.5 L (20-40) % Price % (Auto) 10.0 (2-11) % Eos % (Auto) 0.6 (0-4) % Baso % (Auto) 0.3 (0-2) % Lymph # (Auto) 0.9 L (1.2-4.9) X10*3/uL Price # (Auto) 0.8 (0.1-1.2) X10*3/uL Eos # (Auto) 0.1 (0.0-0.4) X10*3/uL Baso # (Auto) 0.0 (0.0-0.2) X10*3/uL Abs Immat Gran (auto) 0.04 H (0.00-0.03) X10*3/uL Absolute Neuts (auto) 5.9 (2.0-8.3) x10*3/uL Absolute Nucleated RBC 0.000 (0.0-0.012) X10*3/uL Nucleated RBC % (auto) 0.0 (0.0-0.2) /100WBC ESR 20 (0-20) MM/HR Sodium 137 (135-145) mmol/L Potassium 3.7 (3.3-5.1) mmol/L Chloride 106 (96-108) mmol/L Carbon Dioxide 20 L (22-29) mmol/L Anion Gap 15 (12-20) BUN 10 (9-16) mg/dL Creatinine 0.77 (0.5-1.4) mg/dL Estim Creat Clear Calc 94.3 Estimated GFR > 60 Random Glucose 88 (60-115) mg/dL Calcium 9.3 (8.4-10.2) mg/dL Magnesium 1.9 (1.6-2.6) mg/dL Total Bilirubin 0.6 (0.0-1.0) mg/dL AST 28 (5-31) U/L ALT 26 (0-31) U/L Alkaline Phosphatase 66 (39-117) U/L Troponin I High Sens 6.5 (<3.5-17.0) ng/L C-Reactive Protein 9.34 H (< or = 0.50) mg/dL B-Natriuretic Peptide 168 H (<100) pg/mL Total Protein 7.2 (6.5-8.0) g/dL Albumin 4.5 (3.5-5.0) g/dL Beta HCG, Quant < 2 mIU/mL Influenza Type A (PCR) NEGATIVE (Negative) Influenza Type B (PCR) NEGATIVE (Negative) RSV RNA Qual (PCR) NEGATIVE (Negative) SARS-CoV-2 RNA (RT-PCR) NEGATIVE (Negative) Independent Interpretation I performed an independent interpretation of an: EKG, Plain X-Ray (no consolidation) and CT Scan (developing RUL pneumonia) Interpretation: Rate: 96 Rhythm: NSR Confluence: normal Normal P waves. Normal CATINA. Normal QRS complex. ST T wave : normal no KATHI, inverted t wave V1 qTC: 454 prior studies: no acute ischemia The study has been interpreted contemporaneously by me. . Radiology Impression Discussion of test interpretation with radiology: I have reviewed the radiologist's reading. External Record Review External record reviewed: Outpatient record Discharge Plan Discharge Clinical Impression: Atypical chest pain, Pneumonitis Asthma Qualifiers: Asthma severity: moderate Asthma persistence: persistent Asthma complication type: with acute exacerbation Qualified Code(s): J45.41 - Moderate persistent asthma with (acute) exacerbation Patient Disposition: Admitted As Inpatient Print Language: Italian
[2025-01-14 12:37] LABS: MANUAL DIFF FLAG NO
[2025-01-14 12:39] LABS: Hematocrit 41.8 % (37.0-47.0); Hemoglobin 14.7 g/dl (12.0-16.0); Imm Gran Abs Auto 0.04 X10*3/uL (0.00-0.03); Imm Gran Pct Auto 0.5 % (0.0-0.4); Lymphocytes Absolute Auto 0.9 X10*3/uL (1.2-4.9); Mean Corpuscular HGB Conc 35.2 g/dl (31.0-35.0); Mean Corpuscular Hemoglobin 31.3 pg (27.0-33.0); Mean Corpuscular Volume 88.9 fL (80.0-98.0); NRBC Abs Auto 0.000 X10*3/uL (0.0-0.012); NRBC Pct Auto 0.0 /100WBC (0.0-0.2); Platelet Count 153 X10*3/uL (160-400); Red Blood Count 4.70 X10*6/uL (4.20-5.50); White Blood Count 7.7 X10*3/uL (4.8-10.8)
[2025-01-14 12:53] LABS: Alanine Aminotransferase 26 U/L (0-31); Albumin Level 4.5 g/dL (3.5-5.0); Alkaline Phosphatase 66 U/L (39-117); Anion Gap 15 (12-20); Aspartate Amino Transferase 28 U/L (5-31); Blood Urea Nitrogen 10 mg/dL (9-16); Calcium 9.3 mg/dL (8.4-10.2); Carbon Dioxide 20 mmol/L (22-29); Chloride 106 mmol/L (96-108); Creatinine Clr Calc Pharmacy 94.3; Estimated Glomerular Filt Rate > 60; Magnesium 1.9 mg/dL (1.6-2.6); Potassium 3.7 mmol/L (3.3-5.1); Sodium 137 mmol/L (135-145); Total Protein 7.2 g/dL (6.5-8.0)
[2025-01-14 12:59] LABS: B Type Natriuretic Peptide 168 pg/mL (<100)
[2025-01-14 13:00] LABS: Troponin-I High Sensitivity 6.5 ng/L (<3.5-17.0)
--- OUTSIDE RECORDS SUMMARY | 2025-01-14 13:12 | XMS_ITS ---
Author Organization [facility] Address [address] [place] [address] Care Team Providers Care Marketing Communications Assistant Name Role Phone Mya Palm PA-C Primary Care Provider [phone] [id number] Program Status:Enrolled (Active) Start date:12/23/2023 Enrollment date:12/23/2023 Case Team Name Relationship Phone Mya Miranda LPN(Responsible Staff) [phone] Continued Care and Services Coordination
--- OUTSIDE RECORDS SUMMARY | 2025-01-14 13:13 | XMS_ITS | Clinical Summary ---
Author Organization [address] Address [address] [place] [id number] Phone Care Team Providers Care Mercantile Reporter Name Role Phone Mya Palm Primary Care Provider [phone] Allergies Active Allergy Reactions Criticality Noted Date Comments Sulfamethoxazole-Trimet hoprim Shortness of breath,Swelling,Wheez ing High 09/19/2024 Metronidazole 09/19/2024 Latex Anaphylaxis High 01/11/2022 Muscle weakness Levofloxacin Hives,Rash,Pain 09/19/2024 Medications albuterol HFA (PROVENTIL HFA;VENTOLIN HFA) 108 (90 Base) MCG/ACT inhaler Sig - Route: Inhale 2 Puffs into the lungs 4 times daily as needed for Cough, Wheezing or Shortness of Breath. Active mirtazapine (REMERON) 7.5 mg tablet Take 1 tablet (7.5 mg total) by mouth at bedtime. Active aspirin 81 mg capsule Take 81 mg by mouth 1 (one) time each day. 5 Active budesonide-for moteroL (SYMBICORT) 160-4.5 mcg/actuation inhaler Inhale 2 puffs by mouth 2 times daily. 5 Active hydrOXYzine HCL (ATARAX) 10 mg tablet Take 1 tablet (10 mg total) by mouth 3 (three) times a day if needed for anxiety. 5 Active metoprolol tartrate (LOPRESSOR) 25 mg tablet Take 1 tablet (25 mg total) by mouth 2 (two) times a day. 60 each 5 12/27/19 26 Active furosemide (LASIX) 40 mg tablet Take 1 tablet (40 mg total) by mouth 1 (one) time each day. 30 each 5 01/27/20 25 Active valsartan (DIOVAN) 80 mg tablet Take 1 tablet (80 mg total) by mouth 1 (one) time each day. 30 each 5 12/27/19 26 Active lisinopriL (PRINIVIL,ZEST RIL) 5 mg tablet Take 1 tablet (5 mg total) by mouth 1 (one) time each day. 12/27/19 25 Discontin ued(Stop Taking at Discharge ) LORazepam (ATIVAN) 0.5 mg tablet Take 1 tablet (0.5 mg total) by mouth every 8 (eight) hours if needed for anxiety. 12/27/19 25 Discontin ued(Stop Taking at Discharge ) metroNIDAZOLE (METROGEL) 0.75 % (37.5mg/5 gram) vaginal gel Si application for 5 nights at bedtime 12/27/19 25 Discontin ued(Stop Taking at Discharge ) amLODIPine-olm esartan (HERLINDA) 5-20 mg per tablet Take 1 tablet by mouth 1 (one) time each day. 5 12/27/19 25 Discontin ued(Stop Taking at Discharge ) metoprolol tartrate (LOPRESSOR) 25 mg tablet Take 0.5 tablets (12.5 mg total) by mouth 2 (two) times a day. 5 12/27/19 25 Discontin ued(Stop Taking at Discharge ) sacubitriL-helder sartan (ENTRESTO) 24-26 mg per tablet Take 1 tablet by mouth 2 (two) times a day. 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 V28) 12/24/2024 HFrEF (heart failure with re duced ejection fraction) ([facility] V24, [facility] V28) 12/24/2024 Anxiety and depression 09/19/2024 Asthma, not well controlled, mild intermittent, with acute exacerbation 09/19/2024 Encounters Date Type Department Care Team Description 01/03/2025 Telephone [facility] Cardiology [facility] [address] [place] [phone] Jarret Crain MD Appointment (Cardiac MRI) 12/26/2024 Telephone [facility] Cardiology [facility] [address] [place] [phone] Ambar Fernandez NP 12/26/2024 Telephone [facility] Cardiology [facility] [address] [place] [phone] Opal Prather MA appointment needed 12/25/2024 11:00 AM EDT - 12/25/2024 1:00 PM EDT Surgery [facility] Cardiac Screening Tech [address] [place] [address] Jarret Crain MD Left heart cath / Coronary angiography 12/24/2024 8:42 AM EDT - 12/26/2024 12:45 PM EDT Hospital Encounter [facility] Intermediate Care Unit [address] [place] [phone] Poncho Thomas MD Bukalo, Nermina, MD Kela, Kashyap Devendrabhai, MD HFrEF (heart failure with reduced ejection fraction) ([facility] V24, [facility] V28) (Primary Dx); Chest pain, unspecified type; Acute on chronic combined systolic and diastolic CHF (congestive heart failure) ([facility] V24, [facility] V28) Discharge Disposition: Home or Self Care from Last 3 Months Immunizations Name Administration Dates Next Due HPV, Quadrivalent 11/12/2015,08/15/2015,05/06/20 15 Surgical History Surgery Date Site/Laterality Comments OTHER SURGICAL HISTORY 2007 PROCEDURE: [place] COLPOSCOPY CERVIX UPPR/ADJCNT VAGINA W/CERVIX BX Medical History Medical History Date Comments Asthma, mild intermittent, well-controlled DX:Asthma, mild intermittent, well-controlled Hypertension Family History Medical History Relation Name Comments Other: aunts Father's side 1 Breast cancer Mother Other: aunts Mother's side 1 Relation Name Status Comments Aunt Alive Ovarian CA Brother 1 Alive CAD Brother 2 Alive HTN Father Alive Hep C, CAD, HTN Father's side 1 Father's side 2 Mother Alive thyroid dx, Hep C, Breast CA, HTN Mother's side 1 Mother's side 2 Social History Tobacco Use Types Packs/Day Years Used Date Smoking Tobacco: Every Day Cigarettes Smokeless Tobacco: Never Alcohol Use Standard Drinks/Week Comments No 0 (1 standard drink = 0.6 oz pur e alcohol) Interpersonal Safety Answer Date Record ed Physical Abuse 12/25/2024 Verbal Abuse 12/25/2024 Comments Unknown Sex and Gender Information Value Date Recorded Sex Assigned at Not on file Legal Sex Female 5:44 AM EST Gender Identity Not on file Sexual Orientation Not on file Obstetrics History Last Filed Vital Signs Vital Sign Reading Time Taken Comments Blood Pressure 117/76 12/26/2024 11:26 AM EDT Pulse 85 12/26/2024 11:26 AM EDT Temperature 36.5 C (97.7 F) 12/26/2024 11:26 AM EDT Respiratory Rate 17 12/26/2024 11:2 6 AM EDT Oxygen Saturation 99% 12/26/2024 11: 26 AM EDT Inhaled Oxygen Concentration - - Weight 77.4 kg (170 lb 11.2 oz) 12/26/2024 5:00 AM EDT Height 154.9 cm (5' 1 ) 12/25/2024 10:4 1 AM EDT Body Mass Index 32.25 12/25/2024 10:41 AM EDT Plan of Treatment Upcoming Encounters Date Type Department Care Team (Late st Contact Info) Description 01/15/2025 1:40 PM EDT Office Visit [facility] [address] [facility] [address] [place] [address] Ambar Fernandez NP [address] [place] [address] 02/11/2025 12:00 PM EDT Ancillary Procedure [facility] [address] [facility] [address] [place] [phone] Health Maintenance Due Date Last Done Comments Hepatitis B Vaccines (1 of 3 - 19+ 3-dose series) 2008 Pneumococcal Vaccine: Pediatrics (0 to 5 Years) and At-Risk Patients (6 to 64 Years) (1 of 2 - PCV) 2008 Cervical Cancer Screening: Pap Smear 06/04/2019 06/04/2016, 06/04/2016 Depression Screening 06/20/2022 Social Influencers of Health Screening 06/20/2022 COVID-19 Vaccine ( season) 2024 09/07/2021, 08/17/2021 Influenza Vaccine (Season Ended) 2025 09/14/2023, 08/31/2021, 05/13/2020, Additional history exists Hypertension/CHF/CAD Annual BMP Blood Test 12/26/2025 12/26/2024, 12/25/2024, 12/24/2024, Additional history exists DTaP,Tdap,and Td Vaccines (3 - Td or Tdap) 10/15/2027 10/14/2017, 01/11/2012 Cholesterol Screening (Lipid Panel) 09/12/2029 09/12/2024, 09/12/2024, 07/20/2016 HPV Vaccines Completed 11/12/2015, 07/19, 05/06/2015 HIV Screening Completed 09/14/2016 Hepatitis C Screening Completed 09/14/2016 HIB Vaccines Aged Out No longer eligi ble based on patient's age to complete this topic Hepatitis A Vaccines Aged Out No long er eligible based on patient's age to complete this topic IPV Vaccines Aged Out No longer eligi ble based on patient's age to complete this topic MMR Vaccines Aged Out No longer eligi ble based on patient's age to complete this topic Meningococcal ACWY Vaccine Aged Out N o longer eligible based on patient's age to complete this topic Meningococcal B Vaccine Aged Out No l onger eligible based on patient's age to complete this topic RSV Immunization Patients Under 20 months Aged Out No longer eligible based on patient's age to complete this topic Varicella Vaccines Aged Out No longer eligible based on patient's age to complete this topic Procedures Procedure Name Priority Date/Time Associated Diagnosis Comments ECG 12-LEAD Routine 12/26/2024 8:52 AM EDT CBC WITH AUTO DIFFERENTIAL Routine 12/26/2024 6:04 AM EDT MAGNESIUM Timed 12/26/2024 6:04 AM EDT CBC AND DIFFERENTIAL Routine 12/26/2024 6:04 AM EDT BASIC METABOLIC PANEL Routine 12/26/2024 6:04 AM EDT ECG ANNOTATED 12/26/2024 PATHOLOGIST REVIEW IMMUNOFIXATION, URINE RANDOM Routine 12/25/2024 5:11 PM EDT KAPPA-LAMBDA LIGHT CHAINS, FREE WITH RATIO, URINE Routine 12/25/2024 5:11 PM EDT IMMUNOFIXATION, URINE Routine 12/25/2024 5:11 PM EDT WY IMMUNOFIXATION ELECTROPHORESIS SERUM Routine 12/25/2024 1:05 PM EDT IMMUNOGLOBULINS IGG, IGA, IGM Routine 12/25/2024 1:05 PM EDT IMMUNOFIXATION ELECTROPHORESIS Routine 12/25/2024 1:05 PM EDT KAPPA-LAMBDA QUANTITATIVE FREE LIGHT CHAINS Routine 12/25/2024 1:05 PM EDT IMMUNOFIXATION ELECTROPHORESIS Routine 12/25/2024 1:05 PM EDT LEFT HEART CATH / CORONARY ANGIOGRAPHY Routine 12/25/2024 12:20 PM EDT HFrEF (heart failure with reduced ejection fraction) (CMS/HCC V24, CMS/HCC V28) TRANSTHORACIC ECHOCARDIOGRAM (TTE) COMPLETE Routine 12/25/2024 11:17 AM EDT HFrEF (heart failure with reduced ejection fraction) (CMS/HCC V24, CMS/HCC V28) Chest pain, unspecified type COMPLETE BLOOD COUNT Routine 12/25/2024 5:43 AM EDT BASIC METABOLIC PANEL Routine 12/25/2024 5:43 AM EDT TROPONIN I HIGH SENSITIVITY Timed 12/24/2024 3:52 PM EDT D-DIMER STAT 12/24/2024 10:00 AM EDT RESPIRATORY VIRUS PANEL MOLECULAR STUDY STAT 12/24/2024 9:29 AM EDT US BEDSIDE ECHO STAT 12/24/2024 8:59 AM EDT XR CHEST 2 VIEWS STAT 12/24/2024 6:25 AM EDT TROPONIN I HIGH SENSITIVITY STAT 12/24/2024 6:02 AM EDT POC , URINE DIAGNOSTIC STAT 12/24/2024 5:11 AM EDT FORD URINE CULTURE TUBE STAT 12/25/19 25 5:10 AM EDT URINALYSIS WITH REFLEX MICROSCOPIC AND CULTURE STAT 12/24/2024 5:10 AM EDT URINALYSIS WITH REFLEX MICROSCOPIC AND CULTURE STAT 12/24/2024 5:10 AM EDT CBC WITH AUTO DIFFERENTIAL STAT 12/24/2024 4:57 AM EDT B-TYPE NATRIURETIC PEPTIDE STAT 12/24/2024 4:57 AM EDT MAGNESIUM STAT 12/24/2024 4:57 AM EDT LIPASE STAT 12/24/2024 4:57 AM EDT COMPREHENSIVE METABOLIC PANEL STAT 12/24/2024 4:57 AM EDT CBC AND DIFFERENTIAL STAT 12/24/2024 4:57 AM EDT TROPONIN I HIGH SENSITIVITY STAT 12/24/2024 4:57 AM EDT ECG 12-LEAD STAT 12/24/2024 3:34 AM EDT HEPATITIS C SCREENING Routine 09/14/2016 HIV SCREENING Routine 09/14/2016 LIPID PANEL Routine 07/20/2016 HPV Routine 06/04/2016 from Last 3 Months or Most Recently Relevant to Health Maintenance Results * ECG 12 lead (12/26/2024 8:52 AM EDT) Only the most recent of2 resultswithin the time period is included. Ventricular Rate ECG 86 BPM GEMUSE Atrial Rate 86 BPM GEMUSE P-R Interval 172 ms GEMUSE QRS Duration 92 ms GEMUSE Q-T Interval 414 ms GEMUSE QTc 495 ms GEMUSE P Wave Kirwin 14 degrees GEMUSE R Kirwin 44 degrees GEMUSE T Kirwin 44 degrees GEMUSE ECG Interpretation Normal sinus rhythm Prolonged QT Abnormal ECG When compared with ECG of 24-DEC-2024 03:34, No significant change was found Confirmed by Stacy LORENZO JOHN ([id number]) on 12/26/2024 9:12:48 PM GEMUSE 12/26/2024 8:52 AM EDT 12/26/2024 9:12 PM EDT us Ruba DUNAWAY ECG ORDERABLES Final Resu lt GEMUSE * (ABNORMAL) CBC auto differential (12/26/2024 6:04 AM EDT) Only the most recent of2 resultswithin the time period is included. [facility] Signature WBC 6.7 4.8 - 10.8 K/mcL LAB HEMETOLOGY METHOD 12/26/2024 7:14 AM [facility] RBC 4.30 3.80 - 4.80 M/mcL LAB HEMETOLOGY METHOD 12/26/2024 7:14 AM [facility] Hemoglobin 13.3 11.5 - 16.0 g/dL LAB HEMETOLOGY METHOD 12/26/2024 7:14 AM [facility] Hematocrit 40.6 35.0 - 47.0 % LAB HEMETOLOGY METHOD 12/26/2024 7:14 AM [facility] MCV 94.0 79.0 - 98.0 FL LAB HEMETOLOGY METHOD 12/26/2024 7:14 AM [facility] MCH 30.8 27.0 - 32.0 pcg LAB HEMETOLOGY METHOD 12/26/2024 7:14 AM [facility] MCHC 32.8 32.0 - 37.0 g/dL LAB HEMETOLOGY METHOD 12/26/2024 7:14 AM [facility] RDW 13.7 11.0 - 15.0 % LAB HEMETOLOGY METHOD 12/26/2024 7:14 AM [facility] Platelets 191 130 - 400 K/mcL LAB HEMETOLOGY METHOD 12/26/2024 7:14 AM [facility] MPV 11.5(H) 7.0 - 11.0 FL LAB HEMETOLOGY METHOD 12/26/2024 7:14 AM [facility] NRBC 0.0 <1.0 % LAB HEMETOLOGY METHOD 12/26/2024 7:14 AM [facility] NRBC Absolute 0.00 <0.10 K/mcL LAB HEMETOLOGY METHOD 12/26/2024 7:14 AM [facility] Neutrophils Relative 58.0 % LAB HEMETOLOGY METHOD 12/26/2024 7:14 AM [facility] Lymphocytes Relative 29.3 % LAB HEMETOLOGY METHOD 12/26/2024 7:14 AM [facility] Monocytes Relative 9.6 % LAB HEMETOLOGY METHOD 12/26/2024 7:14 AM [facility] Eosinophils Relative 2.4 % LAB HEMETOLOGY METHOD 12/26/2024 7:14 AM [facility] Basophils Relative 0.4 % LAB HEMETOLOGY METHOD 12/26/2024 7:14 AM [facility] Immature Granulocytes Relative 0.3 % LAB HEMETOLOGY METHOD 12/26/2024 7:14 AM [facility] Neutrophils Absolute 3.89 1.50 - 7.00 K/mcL LAB HEMETOLOGY METHOD 12/26/2024 7:14 AM [facility] Lymphocytes Absolute 1.96 1.00 - 5.00 K/mcL LAB HEMETOLOGY METHOD 12/26/2024 7:14 AM [facility] Monocytes Absolute 0.64 0.20 - 1.00 K/mcL LAB HEMETOLOGY METHOD 12/26/2024 7:14 AM [facility] Eosinophils Absolute 0.16 0.00 - 0.50 K/mcL LAB HEMETOLOGY METHOD 12/26/2024 7:14 AM [facility] Basophils Absolute 0.03 0.00 - 0.20 K/mcL LAB HEMETOLOGY METHOD 12/26/2024 7:14 AM [facility] Immature Granulocytes Absolute 0.02 0.00 - 0.03 K/mcL LAB HEMETOLOGY METHOD 12/26/2024 7:14 AM EDT [facility] Blood Venous blood specimen / Unknown Venipuncture / Unknown 12/26/2024 6:04 AM EDT 12/26/2024 7:00 AM EDT Ruba Herbert IN LAB BLOOD ORDERABLES Final Result Performing Organization Address City/[facility]/ZIP Co de Phone Number [facility] [address] [place] [address], [place] [phone] * Magnesium (12/26/2024 6:04 AM EDT) Only the most recent of2 resultswithin the time period is included. [facility] Magnesium 1.9 1.9 - 2.6 mg/dL LAB CHEMISTRY METHOD 12/26/2024 7:33 AM EDT [facility] Blood Venous blood specimen / Unknown Venipuncture / Unknown 12/26/2024 6:04 AM EDT 12/26/2024 7:00 AM EDT Ruba Herbert IN LAB BLOOD ORDERABLES Final Result Performing Organization Address [facility]/ZIP Co de Phone Number [facility] [address] [place] [address], [place] [phone] * Basic metabolic panel (12/26/2024 6:04 AM EDT) Only the most recent of2 resultswithin the time period is included. Pathologist [facility] Sodium 137 133 - 145 mmol/L LAB CHEMISTRY METHOD 12/26/2024 7:33 AM EDT [facility] Potassium 4.0 3.5 - 5.5 mmol/L LAB CHEMISTRY METHOD 12/26/2024 7:33 AM EDT [facility] Chloride 109 96 - 110 mmol/L LAB CHEMISTRY METHOD 12/26/2024 7:33 AM EDT [facility] CO2 23 21 - 32 mmol/L LAB CHEMISTRY METHOD 12/26/2024 7:33 AM EDT [facility] Anion Gap 5 3 - 11 LAB CHEMISTRY METHOD 12/26/2024 7:33 AM T [facility] Glucose 93 70 - 100 mg/dL LAB CHEMISTRY METHOD 12/26/2024 7:33 AM [facility] BUN 19 5 - 25 mg/dL LAB CHEMISTRY METHOD 12/26/2024 7:33 AM [facility] Creatinine 0.74 0.50 - 1.10 mg/dL LAB CHEMISTRY METHOD 12/26/2024 7:33 AM [facility] eGFR 108 >=60 mL/min/1. 73m2 LAB CHEMISTRY METHOD 12/26/2024 7:33 AM [facility] Comment:Calculation based on the Chronic Kidney Disease Epidemiology Collaboration (CKD-EPI) equation refit without adjustment for race. BUN/Creatinine Ratio 25.7 LAB CHEMISTRY METHOD 12/26/2024 7:33 AM [facility] Calcium 8.7 8.5 - 10.5 mg/dL LAB CHEMISTRY METHOD 12/26/2024 7:33 AM [facility] Blood Venous blood specimen / Unknown Venipuncture / Unknown 12/26/2024 6:04 AM EDT 12/26/2024 7:00 AM EDT Ruba DUNAWAY LAB BLOOD ORDERABLES Final Result [facility] [address] [place] [address], * ECG-Annotated (12/26/2024) us Provider Onbase ECG ORDERABLES Final Result * Pathologist review immunofixation, urine random (12/25/2024 5:11 PM EDT) Pathologist Interpretation Kitty Sanchez MD 12/26/2024 2:45 PM EDT [facility] Urine Urine specimen obtained by clean catch procedure / Unknown Non-blood Collection / Unknown 12/25/2024 5:11 PM EDT 12/25/2024 5:28 PM EDT us Jarret Crain MD LAB URINE ORDERABLES Final Resu lt Performing Organization Address [facility]/ZIP Co de Phone Number [facility] [address] [place] [address], [place] [phone] * Immunofixation, urine (12/25/2024 5:11 PM EDT) [facility] Immunofixation Electrophoresis, Urine No monoclonal immunoglobulins detected. LAB CHEMISTRY METHOD 12/26/2024 2:45 PM EDT [facility] Urine Urine specimen obtained by clean catch procedure / Unknown Non-blood Collection / Unknown 12/25/2024 5:11 PM EDT 12/25/2024 5:28 PM EDT us Jarret Crain MD LAB URINE ORDERABLES Final Resu lt Performing Organization Address [facility] Co de Phone Number [facility] [address] [place] [address], [place] [phone] * (ABNORMAL) [place]-lambda free light chains, with ratio,urine (12/25/2024 5:11 PM EDT) [facility] [place] Light Chain Free Urine 45.60(H) <=32.90 mg/L 12/31/2024 12:34 PM EDT [facility] Lambda Light Chain Free Urine 9.42(H) <=3.79 mg/L 12/31/2024 12:34 PM EDT [facility] [place] Lambda Ratio Free Urine 4.84 <=8.69 12/31/2024 12:34 PM EDT [facility] Comment: If free light chain results do not agree with other clinical or laboratory findings, repeat testing on a diluted sample to rule out antigen excess may be requested. Test Performed by [facility], [facility], [address] [place], [place] Poncho Ramos M.D., Ph.D., Director of Laboratories , [place] [id number] Urine Urine specimen obtained by clean catch procedure / Unknown Non-blood Collection / Unknown 12/25/2024 5:11 PM EDT 12/25/2024 5:28 PM EDT Jarret Crain MD LAB URINE ORDERABLES Final Resu lt [facility] [address] [place] [address] * Pathologist Review Immunofixation (12/25/2024 1:05 PM EDT) Pathologist Interpretation Kitty Sanchez MD 12/26/2024 2:42 PM EDT [facility] Blood Venous blood specimen / Unknown Venipuncture / Unknown 12/25/2024 1:05 PM EDT 12/25/2024 1:12 PM EDT Jarret Crain MD LAB BLOOD ORDERABLES Final Resu lt [facility] [address] [place] [address], [place] [phone] * [place]-lambda free light chains, quantitative (12/25/2024 1:05 PM EDT) [place] Free Light Chain 1.94 0.33 - 1.94 mg/dL 12/28/2024 1:30 PM EDT [facility] Lambda Free Light Chain 1.44 0.57 - 2.63 mg/dL 12/28/2024 1:30 PM EDT [facility] [place]/Lambda FLC Ratio 1.35 0.26 - 1.65 12/28/2024 1:30 PM EDT [facility] Comment: Test performed at [facility], [address], [place] [address] Jen Hope MD, PhD - [employer] Blood Venous blood specimen / Unknown Venipuncture / Unknown 12/25/2024 1:05 PM EDT 12/25/2024 1:13 PM EDT Jarret Crain MD LAB BLOOD ORDERABLES Final Resu lt [facility] [address] [place] [address] * Immunofixation electrophoresis serum (12/25/2024 1:05 PM EDT) [facility] Immunofixation Result, Serum No monoclonal immunoglobulins detected. LAB CHEMISTRY METHOD 12/26/2024 2:42 PM EDT [facility] Blood Venous blood specimen / Unknown Venipuncture / Unknown 12/25/2024 1:05 PM EDT 12/25/2024 1:12 PM EDT Jarret Crain MD LAB BLOOD ORDERABLES Final Resu lt [facility] [address] [place] [address], [place] [phone] * Immunoglobulins IgG, IgA, IgM (12/25/2024 1:05 PM EDT) [facility] Total IgG 850 549 - 1,584 mg/dL LAB CHEMISTRY METHOD 12/25/2024 5:51 PM EDT [facility] IgA 190 61 - 348 mg/dL LAB CHEMISTRY METHOD 12/25/2024 5:51 PM EDT [facility] IgM 94 23 - 259 mg/dL LAB CHEMISTRY METHOD 12/25/2024 5:51 PM EDT [facility] Blood Venous blood specimen / Unknown Venipuncture / Unknown 12/25/2024 1:05 PM EDT 12/25/2024 1:12 PM EDT us Jarret Crain MD LAB BLOOD ORDERABLES Final Resu lt JULIANA GUTIERREZ MA ([facility]) [facility] [address] [place] [address], [place] [phone] * LEFT HEART CATH / CORONARY ANGIOGRAPHY (12/25/2024 12:20 PM EDT) Anatomical Region Laterality Modality X-Ray Angiograph y Narrative 12/26/2024 5:15 PM EDT Nonischemic cardiomyopathy. Coronary Findings Diagnostic Dominance: Right Left Main: The vessel is moderate in size and is angiographically normal. Left Anterior Descending: The vessel is moderate in size and is angiographically normal. There is a very large branching first diagonal which is normal. There is a 2nd and 3rd smaller diagonal which are normal. Left Circumflex: The vessel is moderate in size and is angiographically normal. Consists mainly of a single large marginal branch. Right Coronary Artery: The vessel is moderate in size and is angiographically normal. Intervention No interventions have been documented. Study Details This patient came into the hospital with weeks of shortness of breath, chest discomfort and was found to have a reduced ejection fraction on echo with normal troponin levels. This was actually discovered first on an echo done at [facility] but she was discharged before the results were back. They contacted her and asked her to see her primary care physician who referred her back to the hospital. Cardiac Cath Measurements Pressure measurements: LV pressure = 100/7 mmHg. AO pressure = 103/64 mmHg. Cath Recommendations Recommendations: Continue guideline directed medical therapy for her myopathy. She will be evaluated for alternative causes for her myopathy including PYP scan for ATTR amyloid and a cardiac MRI. Labs for AL amyloid have been drawn.. Clinical Background This patient had been to [facility] for a host of symptoms including body aches and pains chest discomfort and dyspnea on exertion. She was evaluated there for 2 or 3 days and an echo was done. She was discharged before the results could be found. When they found out her ejection fraction was poor they called her and urged her to get to her primary care physician. The primary care physician saw her and recommended she go back to [facility] because she had ongoing symptoms. She waited overnight in the emergency room and then left. She subsequently came here. Repeat echo here confirmed the findings from about a month ago that the ejection fraction was low probably in the range of 35 to 40%. No valvular disease. We started GDMT and decided to do a coronary angiogram. Procedure Details Informed consent had been obtained by me. The patient was prepped and draped in usual sterile manner . The area over the right radial artery was injected with Xylocaine. The right radial artery was entered percutaneously with good blood return. The radial artery guidewire went up smoothly and a 5 Frisian radial artery sheath advanced easily. The first catheter I used was a Bartolo catheter and a baby J guidewire. This easily went into the ascending aorta. She received 3000 of heparin. The ascending aorta easily found on the right coronary artery and injections were done. I could not enter the left coronary artery so I exchanged over the guidewire for a [place] catheter which did find the left coronary artery and left coronary artery injections were done. I then used a J-wire to guide this into the left ventricle for LV pressure measurements. I did a pullback pressure measurement. And I took the catheter out over the guidewire. At the beginning of the case 2.5 of verapamil and 200 mics of nitro were given through the sheath. At the end of the case before removing the sheath she got another 2.5 of verapamil. A regular TR band was placed with 5 cc of air left in the band. Sedation as per the tag and label cutter report. us Jarret Crain MD CV CARDIAC CATH PROCEDURES Raquel [email or web address] Result * (ABNORMAL) TRANSTHORACIC ECHOCARDIOGRAM (TTE) COMPLETE (12/25/2024 11:17 AM EDT) Left Atrium Minor Kirwin 5.4 cm CV PACS Left Atrium Major Kirwin 5.5 cm CV PACS LA Area Sys (A2C) 20 cm2 CV PACS LA Area Sys (A4C) 20 cm2 CV PACS LA Volume (BP) 60 mL CV PACS RA Area 15.4 cm2 CV PACS RA 2D Volume 42 mL CV PACS Aortic Sinus Valsalva 2.4 cm CV PACS Ascending Aorta 2.4 cm CV PACS IVSD 0.9 0.6 - 0.9 cm CV PACS LVIDD 5.8(A) 3.8 - 5.2 cm CV PACS LVIDS 4.9(A) 2.2 - 3.5 cm CV PACS LVOT Diameter 2.0 cm CV PACS LVPWD 0.8 0.6 - 0.9 cm CV PACS MV E' Tissue Velocity Lateral 8 cm/s CV PACS MV E' Tissue Velocity Septal 5 cm/s CV PACS LVOT Area 3.1 cm2 CV PACS PISA MR Radius 0.40 cm CV PACS MV Deceleration [place] 11.2 m/s2 CV PACS E Wave Deceleration Time 145 119 - 242 ms CV PACS MV PHT 42 ms CV PACS MV Peak A Gilberto 0.48 m/s CV PACS MV Peak E Gilberto 1.63 m/s CV PACS MV Area PHT 5.2 cm2 CV PACS RV Diastolic Basal Dimension 4.1 2.5 - 4.1 cm CV PACS RV S' 7 cm/s CV PACS TAPSE 9 mm CV PACS TR Peak Velocity 2.74 m/s CV PACS TR Peak Gradient 30 mmHg CV PACS E/E' Ratio Septal 33 CV PACS E/E' Ratio Averaged 26 CV PACS Relative Wall Thickness ratio 0.28 CV PACS FS 16 % CV PACS LV Mass 2D 189 g CV PACS Ascending Aorta Index 1.36 cm/m2 CV PACS RA 2D Volume Index 24 mL/m2 CV PACS LVIDD Index 3.30 cm/m2 CV PACS LVIDS Index 2.78 cm/m2 CV PACS E/A Ratio 3.4 CV PACS E/E' Ratio Lateral 20 CV PACS LA Volume Index (BP) 34 mL/m2 CV PACS LV Mass Index 2D 108 g/m2 CV PACS BSA 1.81 m2 CV PACS Right Ventricular Peak Systolic Pressure 33 mmHg CV PACS Est. RA Pressure 3 mmHg CV PACS Inferior Vena Cava Diameter At Inspiration 1.7 cm CV PACS IVC Inspiration Index 0.97 cm/m2 CV PACS Anatomical Region Laterality Modality Ultrasound Narrative 12/25/2024 11:51 AM EDT Left ventricle cavity is mildly dilated. Wall thickness is normal. Systolic function is severely decreased with an ejection fraction of 20-25%. Global LV hypokinesis. Right ventricle cavity is normal. Right ventricular systolic function is moderately reduced. Mildly dilated left atrium. The leaflets are mildly thickened and apically tethered. There is no evidence of mitral valve stenosis. There is severe functional mitral regurgitation. Mild tricuspid regurgitation. Right ventricular systolic pressure is estimated at 33 mmHg. Left Ventricle Left ventricle cavity is mildly dilated. Wall thickness is normal. Systolic function is severely decreased with an ejection fraction of 20-25%. Global LV hypokinesis is present. Unable to assess diastolic function due to significant mitral regurgitation. Right Ventricle Right ventricle cavity appears normal. Systolic function is moderately reduced. Left Atrium Left atrium cavity is mildly dilated. Right Atrium Right atrium cavity is normal. IVC/SVC Inferior vena cava structure is normal. Mitral Valve The leaflets are mildly thickened and apically tethered. There is severe functional regurgitation. Mitral inflow pattern is consistent with severe mitral regurgitation. There is no evidence of mitral valve stenosis. Tricuspid Valve Tricuspid valve structure is normal. There is mild regurgitation. There is no evidence of tricuspid valve stenosis. Estimated RA pressure is 3 mmHg. The RVSP is estimated at 33 mmHg. Aortic Valve The aortic valve is trileaflet. There is no regurgitation or stenosis. Pulmonic Valve Pulmonic valve structure is normal. There is trace pulmonic valve regurgitation. There is no evidence of pulmonic valve stenosis. Ascending Aorta The aorta appears normal in size. Pericardium Pericardium appears normal. There is no pericardial effusion. Study Details Overall the study quality was adequate. Sydni DUNAWAY CV ECHO PROCEDURES Final Result * (ABNORMAL) Complete blood count (12/25/2024 5:43 AM EDT) [facility] WBC 7.6 4.8 - 10.8 K/mcL LAB HEMETOLOGY METHOD 12/25/2024 6:50 AM EDT [facility] RBC 4.50 3.80 - 4.80 M/mcL LAB HEMETOLOGY METHOD 12/25/2024 6:50 AM EDT [facility] Hemoglobin 13.7 11.5 - 16.0 g/dL LAB HEMETOLOGY METHOD 12/25/2024 6:50 AM EDT [facility] Hematocrit 42.2 35.0 - 47.0 % LAB HEMETOLOGY METHOD 12/25/2024 6:50 AM EDT [facility] MCV 93.6 79.0 - 98.0 FL LAB HEMETOLOGY METHOD 12/25/2024 6:50 AM EDT [facility] MCH 30.4 27.0 - 32.0 pcg LAB HEMETOLOGY METHOD 12/25/2024 6:50 AM EDT [facility] MCHC 32.5 32.0 - 37.0 g/dL LAB HEMETOLOGY METHOD 12/25/2024 6:50 AM EDT [facility] RDW 13.9 11.0 - 15.0 % LAB HEMETOLOGY METHOD 12/25/2024 6:50 AM EDT [facility] Platelets 199 130 - 400 K/mcL LAB HEMETOLOGY METHOD 12/25/2024 6:50 AM EDT [facility] MPV 11.5(H) 7.0 - 11.0 FL LAB HEMETOLOGY METHOD 12/25/2024 6:50 AM EDT [facility] NRBC 0.0 <1.0 % LAB HEMETOLOGY METHOD 12/25/2024 6:50 AM EDT [facility] NRBC Absolute 0.00 <0.10 K/mcL LAB HEMETOLOGY METHOD 12/25/2024 6:50 AM EDT [facility] Blood Venous blood specimen / Unknown Venipuncture / Unknown 12/25/2024 5:43 AM EDT 12/25/2024 6:27 AM EDT us Kirstie Box MD LAB BLOOD ORDERABLES Final Res ult [facility] [address] [place] [address], * Troponin I high sensitivity (12/24/2024 3:52 PM EDT) Only the most recent of3 resultswithin the time period is included. [facility] High Sensitivity Troponin I 13 <=54 ng/L LAB CHEMISTRY METHOD 12/24/2024 5:05 PM EDT [facility] Blood Venous blood specimen / Unknown Venipuncture / Unknown 12/24/2024 3:52 PM EDT 12/24/2024 4:00 PM EDT [facility] - 12/24/2024 5:05 PM EDT High levels of biotin in samples may falsely decrease hsTroponin values. Use caution when interpreting hsTroponin results in patients taking biotin who exhibit renal impairment (eGFR <60) or in patients taking more than 20 mg/day of biotin. Sydni DUNAWAY LAB BLOOD ORDERABLES Final Resul t [facility] [address] [place] [address], * D-dimer, quantitative (12/24/2024 10:00 AM EDT) [facility] D-Dimer, Quant (D-DU) <150 <=230 ng/mL DDU LAB COAGULATION METHOD 12/24/2024 11:12 AM EDT [facility] Blood Venous blood specimen / Unknown Venipuncture / Unknown 12/24/2024 10:00 AM EDT 12/24/2024 10:16 AM EDT [facility] - 12/24/2024 11:12 AM EDT D-Dimer <230 ng/mL (D-Dimer units) is the threshold for exclusion of DVT/PE. D-Dimer may be elevated in: Critically ill, severely infected, trauma patients, DIC, acute CVA, acute CO, unstable angina, AF, old age, , and smoking. D-Dimer may be decreased with: Initiation of heparin therapy and oral anticoagulants. us Poncho Thomas MD LAB BLOOD ORDERABLES Final R esult [facility] [address] [place] [address], * Respiratory virus panel molecular study (12/24/2024 9:29 AM EDT) Adenovirus Detection by PCR Not Detected Not Detected LAB MICROBIOLOGY METHOD 12/24/2024 11:24 AM EDT [facility] Influenza A PCR Not Detected Not Detected LAB MICROBIOLOGY METHOD 12/24/2024 11:24 AM EDT [facility] Influenza B PCR Not Detected Not Detected LAB MICROBIOLOGY METHOD 12/24/2024 11:24 AM EDT [facility] Coronavirus 229E Not Detected Not Detected LAB MICROBIOLOGY METHOD 12/24/2024 11:24 AM EDT [facility] Coronavirus HKU1 Not Detected Not Detected LAB MICROBIOLOGY METHOD 12/24/2024 11:24 AM EDT [facility] Coronavirus OC43 Not Detected Not Detected LAB MICROBIOLOGY METHOD 12/24/2024 11:24 AM EDT [facility] Coronavirus NL63 Not Detected Not Detected LAB MICROBIOLOGY METHOD 12/24/2024 11:24 AM EDT [facility] Parainfluenza Virus 1 Not Detected Not Detected LAB MICROBIOLOGY METHOD 12/24/2024 11:24 AM EDT [facility] Parainfluenza Virus 2 Not Detected Not Detected LAB MICROBIOLOGY METHOD 12/24/2024 11:24 AM EDT [facility] Parainfluenza Virus 3 Not Detected Not Detected LAB MICROBIOLOGY METHOD 12/24/2024 11:24 AM EDT [facility] Parainfluenza Virus 4 Not Detected Not Detected LAB MICROBIOLOGY METHOD 12/24/2024 11:24 AM EDT [facility] RSV PCR Not Detected Not Detected LAB MICROBIOLOGY METHOD 12/24/2024 11:24 AM EDT [facility] Human Metapneumovirus A and B Not Detected Not Detected LAB MICROBIOLOGY METHOD 12/24/2024 11:24 AM EDT [facility] Rhinovirus/Entero virus Not Detected Not Detected LAB MICROBIOLOGY METHOD 12/24/2024 11:24 AM EDT [facility] Bordetella pertussis Not Detected Not Detected LAB MICROBIOLOGY METHOD 12/24/2024 11:24 AM EDT [facility] Bordetella parapertussis Not Detected Not Detected LAB MICROBIOLOGY METHOD 12/24/2024 11:24 AM EDT [facility] Mycoplasma pneumo by PCR Not Detected Not Detected LAB MICROBIOLOGY METHOD 12/24/2024 11:24 AM EDT [facility] Chlamydia pneumoniae Not Detected Not Detected LAB MICROBIOLOGY METHOD 12/24/2024 11:24 AM EDT [facility] SARS COV-2 Not Detected Not Detected LAB MICROBIOLOGY METHOD 12/24/2024 11:24 AM EDT [facility] Swab Both anterior nares / Unknown Non-blood Collection / Unknown 12/24/2024 9:29 AM EDT 12/24/2024 10:15 AM EDT [facility] - 12/24/2024 11:24 AM EDT Testing was performed using the [employer] Respiratory Pathogen PCR Assay. All results must be correlated with the clinical findings. Results should not be used as the sole basis for diagnosis. False Negative results may occur from the presence of sequence variants in the region targeted by the assay or the presence of inhibitors. Results may be affected by concurrent antiviral/antimicrobial therapy or levels of organisms that are below the limit of detection. us Poncho Thomas MD LAB MICROBIOLOGY - GENERAL O RDERABLES Final Result [facility] [address] [place] [address], * US BEDSIDE ECHO (12/24/2024 8:59 AM EDT) Anatomical Region Laterality Modality Body Ultrasound Narrative 12/24/2024 9:41 AM EDT Poncho Thomas MD 12/24/2024 12:10 PM US BEDSIDE ECHO Date/Time: 12/24/2024 9:41 AM Performed by: Poncho Thomas MD Authorized by: Poncho Thomas MD Consent: Consent obtained: Verbal Consent given by: Patient [place] protocol: Procedure explained and questions answered to patient or proxy's satisfaction: yes Relevant documents present and verified: yes Test results available: yes Imaging studies available: yes Required blood products, implants, devices, and special equipment available: yes Site/side marked: no Immediately prior to procedure, a time out was called: no Patient identity confirmed: Verbally with patient Indications: Indications: Shortness of breath Sedation: Sedation type: None Procedure specific details: Patient has reduced ejection fraction, I estimate 20 to 30%. She has a dilated IVC consistent with volume overload. I do not appreciate any pericardial effusion. Post-procedure details: Procedure completion: Tolerated us Poncho Thomas MD US BEDSIDE PROCEDURES Final Result * XR Chest 2 Views (12/24/2024 6:25 AM EDT) Anatomical Region Laterality Modality Body Radiographic Shreya ging 12/24/2024 8:21 AM EDT Impressions 12/24/2024 8:24 AM EDT 1. Mild cardiomegaly. This is a new finding since the prior study performed 02/18/2021. Further evaluation with echocardiography is recommended. 2. The lungs are clear. Code 14596 A [employer] message has been communicated to the Emergency Department via the [facility] System on 12/24/2024 8:24 AM, Message ID [id number]. -------- FINAL REPORT -------- Dictated By: Rodriguez Lewis Dictated Date: 12/24/2024 08:21 ET Assigned Physician: Rodriguez Lewis Reviewed and Electronically Signed By: Rodriguez Lewis Signed Date: 12/24/2024 08:24 ET Workstation ID: [id number] Transcribed By: Self Edit Transcribed Date: 12/24/2024 08:22 ET Narrative 12/24/2024 8:24 AM EDT HISTORY: The patient is a 34-year-old female with chest pain. FINDINGS: PA and lateral radiographs of the chest demonstrate normal appearance of the bony structures. The cardiac silhouette is mildly enlarged with a cardiothoracic ratio of 0.53, as compared to 0.44 on the prior study performed 10/19/2020. The mediastinal contour is within normal limits. The lungs and costophrenic angles are clear. Procedure Note Rodriguez Lewis MD - 12/24/2024 HISTORY: The patient is a 34-year-old female with chest pain. FINDINGS: PA and lateral radiographs of the chest demonstrate normalappearance of the bony structures. The cardiac silhouette is mildlyenlarged with a cardiothoracic ratio of 0.53, as compared to 0.44 on theprior study performed 10/19/2020. The mediastinal contour is within normallimits. The lungs and costophrenic angles are clear. IMPRESSION: 1. Mild cardiomegaly. This is a new finding since the prior studyperformed 02/18/2021. Further evaluation with echocardiography isrecommended. 2. The lungs are clear. Code 75725 A [employer] message has been communicated to the Emergency Department via [employer] [facility] on 12/24/2024 8:24 AM, Message [id number]. -------- FINAL REPORT -------- Dictated By: Rodriguez Lewis Dictated Date: 12/24/2024 08:21 ET Assigned Physician: Rodriguez Lewis Reviewed and Electronically Signed By: Rodriguez Lewis Signed Date: 12/24/2024 08:24 ET Workstation ID: [id number] Transcribed By: Self Edit Transcribed Date: 12/24/2024 08:22 ET us Enrique Rice MD IMG XR PROCEDURES Final Result * POC , urine manually resulted (12/24/2024 5:11 AM EDT) HCG, Ur POC Negative Negative POC hCG Int QC Pass? Yes Yes EXPIRATION DATE POC 06/24/2026 LOT NUMBER POC [id number] Urine Urine specimen obtained by clean catch procedure / Unknown 12/24/2024 5:11 AM EDT us Enrique Rice MD POINT OF CARE TEST ENTER/EDIT O RDERABLES Final Result * Urinalysis with reflex microscopic and culture (12/24/2024 5:10 AM EDT) Specific [place] Urine 1.023 1.003 - 1.030 LAB URINALYSIS - AUTOMATED METHOD 12/24/2024 5:33 AM [facility] pH, Urine 6.0 5.0 - 8.0 pH LAB URINALYSIS - AUTOMATED METHOD 12/24/2024 5:33 AM [facility] Leukocytes, Urine Negative Negative LAB URINALYSIS - AUTOMATED METHOD 12/24/2024 5:33 AM [facility] Nitrite, Urine Negative Negative LAB URINALYSIS - AUTOMATED METHOD 12/24/2024 5:33 AM [facility] Protein, Urine Trace <=Trace mg/dL LAB URINALYSIS - AUTOMATED METHOD 12/24/2024 5:33 AM [facility] Glucose, Urine Negative Negative mg/dL LAB URINALYSIS - AUTOMATED METHOD 12/24/2024 5:33 AM [facility] Ketones, Urine Negative Negative mg/dL LAB URINALYSIS - AUTOMATED METHOD 12/24/2024 5:33 AM [facility] Urobilinogen, Urine 0.2 0.2 - 1.0 mg/dL LAB URINALYSIS - AUTOMATED METHOD 12/24/2024 5:33 AM [facility] Bilirubin, Urine Negative Negative LAB URINALYSIS - AUTOMATED METHOD 12/24/2024 5:33 AM [facility] Blood, Urine Negative Negative LAB URINALYSIS - AUTOMATED METHOD 12/24/2024 5:33 AM [facility] Urine Urine specimen obtained by clean catch procedure / Unknown Non-blood Collection / Unknown 12/24/2024 5:10 AM EDT 12/24/2024 5:25 AM EDT us Enrique Rice MD LAB URINE ORDERABLES Final Resu lt Performing Organization Address [facility]/ZIP Co de Phone Number [facility] [address] [place] [address], [place] [phone] * Ford urine culture tube (12/24/2024 5:10 AM EDT) Pathologist [facility] Extra Tube Hold for add-ons. 12/24/2024 7:01 AM EDT [facility] Comment:Auto resulted. Urine Urine specimen obtained by clean catch procedure / Unknown Non-blood Collection / Unknown 12/24/2024 5:10 AM EDT 12/24/2024 5:25 AM EDT us Enrique Rice MD LAB URINE ORDERABLES Final Resu lt Performing Organization Address [facility]/ZIP Co de Phone Number [facility] [address] [place] [address], [place] [phone] * (ABNORMAL) B-type natriuretic peptide (12/24/2024 4:57 AM EDT) Pathologist [facility] BNP 271(H) <=100 pcg/mL LAB CHEMISTRY METHOD 12/24/2024 5:58 AM EDT [facility] Blood Venous blood specimen / Unknown Venipuncture / Unknown 12/24/2024 4:57 AM EDT 12/24/2024 5:24 AM EDT us Enrique Rice MD LAB BLOOD ORDERABLES Final Resu lt Performing Organization Address City/[facility]/ZIP Co de Phone Number [facility] [address] [place] [address], [place] [phone] * Lipase (12/24/2024 4:57 AM EDT) Lipase 69 13 - 75 unit/L LAB CHEMISTRY METHOD 12/24/2024 6:00 AM [facility] Blood Venous blood specimen / Unknown Venipuncture / Unknown 12/24/2024 4:57 AM EDT 12/24/2024 5:24 AM EDT us Enrique Rice MD LAB BLOOD ORDERABLES Final Resu lt [facility] [address] [place] [address], [place] [phone] * Comprehensive metabolic panel (12/24/2024 4:57 AM EDT) Pathologist [facility] Sodium 138 133 - 145 mmol/L LAB CHEMISTRY METHOD 12/24/2024 6:00 AM [facility] Potassium 4.1 3.5 - 5.5 mmol/L LAB CHEMISTRY METHOD 12/24/2024 6:00 AM [facility] Chloride 108 96 - 110 mmol/L LAB CHEMISTRY METHOD 12/24/2024 6:00 AM [facility] CO2 22 21 - 32 mmol/L LAB CHEMISTRY METHOD 12/24/2024 6:00 AM [facility] Anion Gap 8 3 - 11 LAB CHEMISTRY METHOD 12/24/2024 6:00 AM [facility] Glucose 95 70 - 100 mg/dL LAB CHEMISTRY METHOD 12/24/2024 6:00 AM [facility] BUN 16 5 - 25 mg/dL LAB CHEMISTRY METHOD 12/24/2024 6:00 AM [facility] Creatinine 0.70 0.50 - 1.10 mg/dL LAB CHEMISTRY METHOD 12/24/2024 6:00 AM [facility] eGFR 116 >=60 mL/min/1. 73m2 LAB CHEMISTRY METHOD 12/24/2024 6:00 AM [facility] Comment:Calculation based on the Chronic Kidney Disease Epidemiology Collaboration (CKD-EPI) equation refit without adjustment for race. BUN/Creatinine Ratio 22.9 LAB CHEMISTRY METHOD 12/24/2024 6:00 AM [facility] Calcium 9.0 8.5 - 10.5 mg/dL LAB CHEMISTRY METHOD 12/24/2024 6:00 AM [facility] AST (SGOT) 13 10 - 42 unit/L LAB CHEMISTRY METHOD 12/24/2024 6:00 AM [facility] ALT (SGPT) 32 10 - 60 unit/L LAB CHEMISTRY METHOD 12/24/2024 6:00 AM [facility] Alkaline Phosphatase 73 42 - 121 unit/L LAB CHEMISTRY METHOD 12/24/2024 6:00 AM [facility] Total Protein 6.6 6.0 - 8.0 g/dL LAB CHEMISTRY METHOD 12/24/2024 6:00 AM [facility] Albumin 3.8 3.2 - 5.0 g/dL LAB CHEMISTRY METHOD 12/24/2024 6:00 AM [facility] Total Bilirubin 0.5 0.0 - 1.4 mg/dL LAB CHEMISTRY METHOD 12/24/2024 6:00 AM [facility] Blood Venous blood specimen / Unknown Venipuncture / Unknown 12/24/2024 4:57 AM EDT 12/24/2024 5:24 AM EDT Enrique Rice MD LAB BLOOD ORDERABLES Final Resu lt [facility] [address] [place] [address], * HIV Screening (09/14/2016) Pathologist [facility] HIV Screening abstracted Historical Provider HEALTH MAINTENANCE Final Result * Hepatitis C Screening (09/14/2016) [facility]ologist [facility] Hepatitis C Screening abstracted Historical Provider HEALTH MAINTENANCE Final Result * (ABNORMAL) Lipid panel (07/20/2016) [facility] LDL/HDL Ratio 3 0 - 4 Triglycerides 197(A) 0 - 150 mg/dL Cholesterol 147 0 - 200 mg/dL HDL 50 >=40 mg/dL LDL Cholesterol 58 0 - 100 mg/dL Blood Venous blood specimen / Unknown Historical Provider LAB BLOOD ORDERABLES Raquel l Result * Cervical Cancer Screening: HPV (06/04/2016) [facility] Cervical Cancer Screening: HPV no interpretation , abstracted [facility] Provider HEALTH MAINTENANCE Final Result from Last 3 Months or Most Recently Relevant to Health Maintenance Insurance MEDICAID - [place] Advance Directives * Full Code - Default (Latest Code Status on File) Date Activated Date Inactivated Comments 12/24/2024 11:41 AM 12/26/2024 2:50 PM This is orde r is used when code status has not been discussed with the patient, or code status is otherwise unknown/unconfirmed To update the patient's code status, place a code status order. Do not modify or discontinue any currently active code status orders. Care Teams Mercantile Reporter Relationship Specialty Start Date End Date Mya Palm PA [address] [place] [address] PCP - General 10/12/24
[2025-01-14 13:31] LABS: Resp Syncy Virus RNA Qual PCR NEGATIVE (Negative); SARS COV2 PCR INHOUSE NEGATIVE (Negative)
[2025-01-14] MEDS: Furosemide 20 MG/2 ML VIAL IVPUSH (13:54)
[2025-01-14] MEDS: Albuterol Sulfate 2.5 MG, Albuterol/Iprat 2.5/0.5MG 3 ML 3 ML INHALE (14:08)
[2025-01-14] MEDS: iohexoL 350 MG/ML 100 ML INFUS..BTL IV (14:58)
--- NOTE | 2025-01-14 15:32 | PC.NURSE ---
patient eating soup and drinking luciano rishi in room, states she has been able to keep some broth down.
--- NOTE | 2025-01-14 18:37 | PHA.MEDREC ---
Pharmacy Consult ? Medication Reconciliation Pharmacy has completed the medication reconciliation. spoke with patient in the ED
[2025-01-14 19:30] LABS: Reflex Lactate? Lactic Acid Added
--- NOTE | 2025-01-14 21:18 | PM.IMHP ---
History of Present Illness Date of Service: 01/14/25 Attending physician on admission: Sami Nuñez Chief Complaint: dyspnea, nausea, vomiting Patient is a 34-year-old female with a past medical history significant for mild intermittent asthma, hypertension and new diagnosis cardiomyopathy with EF of 20% after have rhino virus in November, who presented to the ED due to cough, fever and dyspnea for the past 2 days. The patient reports that she has been followed by Cardiology at [facility] due to having a new diagnosis of congestive heart failure with unknown cause, s/p normal cardiac catheterization. She denies history of alcohol or cocaine use. She reports 2 of her brothers passed from congestive heart failure at a young age however they had history of congenital heart issues and cocaine use. She has had a max temperature of 101 degrees for the past 2 days with a productive cough. She reports that she feels like she is ?drowning and ?. She is taking her Lasix but has had severe nausea and vomiting in his unsure if she has been able to keep her medications down. She reports that her inhaler has been causing shakiness and has not been helping her symptoms. She does not feel that she is wheezing. She has been hospitalized at least 3 times since November at [facility] and [facility] for CHF. Review of Systems Constitutional: Constitutional: Denies body ache(s), Denies chills, Reports fatigue, Reports fever(s) and Denies headache(s) Eyes: Eyes: Denies change in vision and Denies loss of vision ENT: Denies headache(s), Denies nasal congestion and Denies sore throat Cardiovascular: Cardiovascular: Denies rapid heart rate, Denies leg edema, Denies lightheadedness and Reports dyspnea Respiratory: Respiratory: Reports chest congestion, Reports cough, Reports dyspnea and Denies wheezing Gastrointestinal: Gastrointestinal: Denies abdominal pain, Reports nausea, Reports vomiting and Denies hematemesis Musculoskeletal: Musculoskeletal: Denies myalgias Integumentary/Breasts: Skin/Breast: Denies rash Neurologic: Denies confusion, Denies headache(s) and Denies loss of vision Psychiatric: Psychiatric: Denies confusion Endocrine: Endocrine: Reports fatigue Hematologic/Lymphatic: Hematologic/Lymphatic: Denies easy bleeding and Denies easy bruising Allergic/Immunologic: Allergic/Immunologic: Denies wheezing [facility] Medical History Nonischemic cardiomyopathy Asthma Functional capacity: independent ambulation Social History Household Members: Family Housing: Apartment Do you presently have visiting nurse or other home services: No Patient Tobacco Use Status: Current everyday Tobacco user Tobacco use type: Cigarette Cigarette Packs Per Day: 0.25 Cigarettes Per Day: 5.0 Smoked in Last 30 Days: Yes e-Cigarette/Vaping Use: Never Used Patient Interested in Nicotine Replacement: Yes Patient Given Instructions on How to Stop Smoking: Yes Date Education Initiated: 01/14/25 Second Hand Smoke Exposure: Yes Have you been hit, kicked, punched, or otherwise hurt by someone within the past year? If so, by whom?: No Do you feel safe in your current relationship?: Yes Is there a partner from a previous relationship who is making you feel unsafe now?: No Are you made to feel afraid or neglected: No Advance Directives: No Advance Directives Information Provided: Yes Do you have a plan to hurt others: No Plan Recently lost weight without trying: No Nutrition Risks: No Nutritional Risk Patient : No : No Poor oral hygiene: No Narrative: smokes 3-4 ciagrettes/day, quitting. social occasional etoh. no drug use. Meds Allergies Allergy/AdvReac Type Severity Reaction Status Date / Time ciprofloxacin (From CIPRO) Allergy Unknown SOB HIVES Verified 01/14/25 12:15 latex (LATEX) Allergy Unknown HIVES Verified 01/14/25 12:15 levofloxacin (From LEVAQUIN) Allergy Unknown SOB,HIVES Verified 01/14/25 12:15 sulfamethoxazole (From Allergy Unknown SOB HIVES Verified 01/14/25 12:15 BACTRIM) trimethoprim (From BACTRIM) Allergy Unknown SOB HIVES Verified 01/14/25 12:15 Active Medications: Current Medications Acetaminophen (Acetaminophen 325 Mg Tablet) 650 mg PO Q6H PRN PRN Reason: Pain, Mild 1-3,fever,headache Calcium Carbonate (Calcium Carbonate 750 Mg Tab.Chew) 750 mg PO Q4H PRN PRN Reason: Heartburn Ceftriaxone Sodium (Ceftriaxone Sodium 1 Gm Vial) 1 gm IVPUSH Q24H AN Levalbuterol HCl 2.5 mg/ (Ipratropium Guthrie 0.5 mg) 0 mg INHALE RQ4H WHILE AWAKE [facility] Enoxaparin Sodium (Enoxaparin Sodium 40 Mg/0.4 Ml Syringe) 40 mg SUBCUT Q24H AN Last Admin: 01/14/25 17:55 Dose: 40 mg Furosemide (Furosemide 40 Mg Tablet) 40 mg PO DAILY [facility]; Protocol Azithromycin 500 mg/ Sodium (Chloride) 250 mls @ 125 mls/hr IV Q24H [facility] Magnesium Hydroxide (Milk Of Magnesia 30 Ml Oral.Susp) 30 ml PO DAILY PRN PRN Reason: Constipation Melatonin (Melatonin 3 Mg Tablet) 6 mg PO BEDTIME PRN PRN Reason: Insomnia Ondansetron HCl (Ondansetron Hcl 4 Mg/2 Ml Vial) 4 mg IVPUSH Q8H PRN PRN Reason: Nausea and Vomiting Sodium Chloride (0.9 % Sodium Chloride Flush 3 Ml Syringe) 3 ml IVFLUSH QSHIFT [facility] Home Medications ?Medication ?Instructions ?Recorded ?Confirmed ?Last Taken ?Type furosemide 40 mg tablet 40 mg PO DAILY 01/14/25 01/14/25 Unknown History metoprolol tartrate 25 mg tablet 25 mg PO BID 01/14/25 01/14/25 Unknown History valsartan 80 mg tablet 80 mg PO DAILY 01/14/25 01/14/25 Unknown History Physical Exam Vital Signs and Narrative: Vital Signs: Last Vital Signs Temp 97.2 F 01/14/25 19:53 Pulse 93 01/14/25 19:53 Resp 18 01/14/25 19:53 BP 108/63 01/14/25 19:53 Pulse Ox 97 01/14/25 19:53 O2 Del Method Room Air 01/14/25 19:53 BMI result Body Mass Index 31.2 General: AOx3, no acute distress Resp: diminished throughout. no wheezing or crackles CVS: S1, S2, RRR GI: +BS, NT, no distention Skin: Warm, dry Neuro: Cranial nerves II-XII grossly intact bilaterally. Motor grossly intact bilaterally Extremities: No pitting edema Psych: Appropriate affect Const: General: No confusion Orientation/consciousness: No confusion Neuro: General: No confusion Results Labs 01/14/25 12:32 01/14/25 12:32 Labs: Laboratory Results - last 24 hr 01/14/25 01/14/25 12:32 17:24 MCV 88.9 MCH 31.3 MCHC 35.2 H RDW 14.2 Plt Count 153 L MPV 11.3 Immature Gran % (Auto) 0.5 H Neut % (Auto) 77.1 H Lymph % (Auto) 11.5 L [place] % (Auto) 10.0 Eos % (Auto) 0.6 Baso % (Auto) 0.3 Lymph # (Auto) 0.9 L [place] # (Auto) 0.8 Eos # (Auto) 0.1 Baso # (Auto) 0.0 Abs Immat Gran (auto) 0.04 H Absolute Neuts (auto) 5.9 Absolute Nucleated RBC 0.000 Nucleated RBC % (auto) 0.0 ESR 20 Anion Gap 15 Estim Creat Clear Calc 94.3 Estimated GFR > 60 Random Glucose 88 Lactic Acid 2.4 H* Calcium 9.3 Magnesium 1.9 Total Bilirubin 0.6 AST 28 ALT 26 Alkaline Phosphatase 66 Troponin I High Sens 6.5 C-Reactive Protein 9.34 H B-Natriuretic Peptide 168 H Total Protein 7.2 Albumin 4.5 Beta HCG, Quant < 2 Influenza Type A (PCR) NEGATIVE Influenza Type B (PCR) NEGATIVE RSV RNA Qual (PCR) NEGATIVE SARS-CoV-2 RNA (RT-PCR) NEGATIVE Imaging Radiologist's Impressions: Impressions Chest X-Ray 01/14/25 12:35 IMPRESSION: No acute disease Electronically signed by: Andre Callejas MD 01/14/2025 01:08 PM EDT RP Chest CTA 01/14/25 14:54 IMPRESSION: No evidence of PE. No aortic aneurysm or dissection. Right upper lobe groundglass nodules and reticular changes likely developing infiltrate or interstitial pneumonitis. Rest of the lungs are clear. No abnormal mediastinal or hilar adenopathy. Fleischner guidelines were followed. Electronically signed by: Jerel Esqueda MD 01/14/2025 04:44 PM EDT RP Assessment and Plan (1) Intractable vomiting with nausea: Status: Acute (2) Pneumonia: Status: Acute (3) Orthopnea: Status: Acute (4) Acute asthma exacerbation: Status: Acute Plan Patient is a 34-year-old female with a past medical history significant for mild intermittent asthma, hypertension and new diagnosis cardiomyopathy with EF of 20% after have rhino virus in May, who presented to the ED due to cough, fever and dyspnea for the past 2 days. intractable vomiting with nausea ?gastroenteritis - no leukocytosis - beta hCG negative - UA ordered - improved with zofran - no abd pain - lytes ok - follow CBC and BMP - continue to monitor pneumonia ?aspitation - CXR negative - chest CTA negative for PE, no aortic aneurysm or dissection. Right upper lobe ground-glass nodules and reticular changes likely developing infiltrate or interstitial pneumonitis. - patient is started on ceftriaxone and azithromycin in ED, continue - check urine strep and legionella with GI sx - lactic acid 2.4, 2.9 on repeat, likely increased from albuterol, no sepsis, vitals stable - monitor CBC and BMP Orthopnea with recent new diagnosis CHF - echocardiogram - continue lasix 20mg IV - imaging of chest including x-ray and CTA negative for pleural effusion or pulmonary edema Acute asthma exacerbation - wheezing noted by ED provider, none currently - patient is started on Solu-Medrol 60 mg IV in the ED, continue 60 mg b.i.d. - levalbuterol/ipratropium q.4h while awake Hypertension - BP low normal, continue Lasix - hold metoprolol and valsartan, resume when appropriate Patient with intractable vomiting and nausea complicated by possible aspiration pneumonia and acute asthma exacerbation, requiring admission for at least 2 midnight stay for IV antibiotics, breathing treatments and monitoring. Quality Stroke Does the patient have a stroke diagnosis?: No VTE Prior VTE?: No VTE Risk Level:: Medical - moderate - high VTE Device Contraindication: Treatment Not Indicated VTE Drug Contraindication: N/A - Med Ordered
[2025-01-14 21:40] LABS: ~Lactic Acid-LAB USE ONLY 2.9 mmol/L (0.5-2.0)
[2025-01-14] MEDS: 0.9 % Sodium Chloride Flush 3 ML SYRINGE IVFLUSH (21:55)
[2025-01-14 23:11] LABS: Reflex Lactate? 2 Y
[2025-01-14 23:52] LABS: Appearance Urine Clear; Glucose Urine UA 250 mg/dL (Negative); PH 6.0 (5.0-9.0); Specific Gravity - Urine >= 1.030 (1.005-1.025); UMIC TRIGGER UACC YES
[2025-01-15] VITALS (8 sets, daily range): BP systolic 122–160; BP diastolic 70–77; PULSE 82–146; RESP 16–20; TEMP 36.6–38.3; O2SAT 91–97
--- NOTE | 2025-01-15 | ECG_ITS ---
Test Reason : pain Blood Pressure : */* mmHG Vent. Rate : 138 BPM Atrial Rate : 138 BPM P-R Int : 138 ms QRS Dur : 88 ms QT Int : 302 ms P-R-T Axes : 59 95 55 degrees QTcB Int : 457 ms Sinus tachycardia Possible Left atrial enlargement Rightward axis Borderline ECG When compared with ECG of 14-Jan-2025 11:16, No significant change was found Referred By: Sami Nuñez Electronically Signed By: KARI DINERO MD
[2025-01-15 00:26] LABS: ~Lactic Acid-LAB USE ONLY 3.2 mmol/L (0.5-2.0)
--- NOTE | 2025-01-15 00:29 | PM.EVENT ---
Event Note Date of Service: 01/15/25 Event Note: lactic acid continues to increase from 2.4 to 2.9, now 3.2. pt did receive albuterol. due to orthopnea and HFrEF will given 250cc bolus LR. BP soft but stable. Time Spent With Patient Time: Total time managing care of this patient today ____ minutes.
[2025-01-15] MEDS: Lactated Ringers 250 ML 999 ML IV (00:48)
--- NOTE | 2025-01-15 04:00 | PC.NURSE ---
Reglan given per mar, effetive per pt at this time, pain slowly going down, shortly after dilaudid administration, O2 dropped down to 85% and wouldn't go up, pt placed on 2L NC, improved to 92%. Dr. Queen made aware. Will reassess shortly.
[2025-01-15 04:32] LABS: Anion Gap 14 (12-20); Blood Urea Nitrogen 13 mg/dL (9-16); Calcium 8.4 mg/dL (8.4-10.2); Carbon Dioxide 19 mmol/L (22-29); Chloride 107 mmol/L (96-108); Creatinine Clr Calc Pharmacy 103.7; Estimated Glomerular Filt Rate > 60; Lipase 35 U/L (8-78); Potassium 3.6 mmol/L (3.3-5.1); Sodium 136 mmol/L (135-145)
[2025-01-15 06:23] LABS: Hematocrit 38.2 % (37.0-47.0); Hemoglobin 13.1 g/dl (12.0-16.0); Mean Corpuscular HGB Conc 34.3 g/dl (31.0-35.0); Mean Corpuscular Hemoglobin 30.8 pg (27.0-33.0); Mean Corpuscular Volume 89.9 fL (80.0-98.0); NRBC Abs Auto 0.000 X10*3/uL (0.0-0.012); NRBC Pct Auto 0.0 /100WBC (0.0-0.2); Platelet Count 150 X10*3/uL (160-400); Red Blood Count 4.25 X10*6/uL (4.20-5.50); White Blood Count 7.9 X10*3/uL (4.8-10.8)
[2025-01-15 06:37] LABS: Anion Gap 12 (12-20); Blood Urea Nitrogen 12 mg/dL (9-16); Calcium 8.5 mg/dL (8.4-10.2); Carbon Dioxide 21 mmol/L (22-29); Chloride 108 mmol/L (96-108); Creatinine Clr Calc Pharmacy 110.0; Estimated Glomerular Filt Rate > 60; Potassium 3.8 mmol/L (3.3-5.1); Sodium 137 mmol/L (135-145)
--- NOTE | 2025-01-15 07:00 | CA_ITS ---
Transthoracic Echocardiogram Patient (Last, First, Middle): Annie Miranda, Gender: Female Date of : 1990 Age: 34 Procedure Date: 01/15/2025 Procedure Type: Transthoracic Echocardiogram Location: S3E Height: 154.94 cm Weight: 74.39 kg BSA: 1.74 m2 Heart Rate: 79 bpm BP: 122 / 74 mmHg Certified Orthotist Practice Manager: JOSÉ MIGUEL Referring MD: Ambar Queen PA-C Cardiothoracic Surgeon: Raimundo Cleaning MD Symptoms: new CHF, hx pericardial effusion Study Quality: Adequate w contrast ECG Rhythm: Sinus Conclusions: - 1. [id number] LV systolic dysfunction with LVEF of 40-45% 2. Mildly dilated left atrium 3. [id number]-[id number] mitral regurgitation 4. Mildly elevated right ventricular systolic pressure with mildly elevated right atrial pressures 5. No gross pericardial effusion Findings Procedure Information Contrast agent, definity, is being given per protocol without apparent complications. Left Ventricle Mildly increased left ventricular cavity size. There is normal left ventricular wall thickness. The left ventricular systolic function is mild to moderately decreased. The visually estimated ejection fraction is between 40-45%. Diastolic function is indeterminate on the basis of available data. Right Ventricle Normal right ventricular cavity size and systolic function. Atria The left atrium is mildly dilated. There is no evidence of interatrial shunt. The right atrium is normal in size. Aortic Valve Normal aortic valve structure and function. There is no aortic valve stenosis. There is no aortic valve regurgitation. Mitral Valve There is mild anterior and posterior mitral leaflet thickening. The anterior mitral leaflet has restricted mobility and the posterior mitral leaflet has restricted mobility. There is mild to moderate mitral valve regurgitation. There is no mitral valve stenosis. Pulmonic Valve The pulmonic valve is likely normal. Tricuspid Valve Normal tricuspid valve structure. There is mild tricuspid valve regurgitation. Mildly elevated right atrial pressure. Mild pulmonary hypertension is present. Great Vessels All visible segments of the aorta are normal in size. The pulmonary artery was not well visualized. Venous The inferior vena cava is normal in size and collapses less than 50% with inspiration. Pericardium/Pleural There is no evidence of pericardial effusion. Prior Study Comparison No prior study available for comparison. Measurements 2D Linear Measurements IVSd: 0.87 0.6-0.9/0.6-1.0 cm LVIDd: 5.76 3.9-5.3/4.2-5.9 cm LVIDd Index: 3.31 2.4-3.2/2.2-3.1 cm/m2 LVIDs: 4.65 2.0-3.6 cm LVPWd: 0.97 0.7-1.1 cm LA Diam: 4.50 2.7-3.8/3.0-4.0 cm LAIDs Index: 2.59 1.5-2.3 cm/m2 LV Mass: 259.05 67-162/88-224 g LV Mass Index: 148.88 43-95/49-115 g/m2 LVOT Diam: 1.90 3.0+(-)1.3 cm 2D Systolic Function EF 4C: 39.50 >55% EF 2C: 40.70 >55% EF BiP: 41.20 >55% Mitral Valve MV Pk E: 1.72 MV PK A: 0.68 MV Decel Time: 158.00 E/A: 2.50 E'Lateral: 8.16 E'Medial: 6.53 E/E' Med: 26.30 E/E' Lat: 21.10 PHT: 46.00 MVA PHT: 4.78 Decel Emanuel: 10.88 Aortic Valve AoV Pk Gilberto: 1.44 AoV Pk Grad: 8.00 VENITA: 2.11 LVOT LVOT Pk Gilberto: 1.01 LVOT Mn Gilberto: 0.74 LVOT VTI: 0.19 LVOT Pk Grad: 4.00 LVOT Mn Grad: 2.00 LVOT Diam: 1.90 LVOT Area: 2.84 Diastolic Function MV Pk E: 1.72 MV Pk A: 0.68 E/A: 2.50 E'Medial: 6.53 E/E' Med: 26.30 E' Laterial: 8.16 E/E' Lat: 21.10 Right Ventricle TAPSE (mm): 22.30 TVS' Gilberto: 9.03 Tricuspid Valve TR Pk Gilberto: 2.94 TR Pk Grad: 35.00 RA Press: 8.00 RVSP: 43.00 Great Vessels Aorta Sinus of Valsalva: 2.40 2.0-3.5 cm Ao Asc: 2.40 2.1-3.4 cm Pulmonary Valve PV Pk Gilberto: 0.77 Peak PV Grad: 2.00 Updated in Other Vendor System with Status of Final Raimundo Cleaning MD electronically signed on 01/15/2025 11:56:04 AM with status of Final
[2025-01-15] MEDS: levalbuterol HCL 2.5 MG, Ipratropium Bromide 0.5 MG INHALE ×3 (07:34→19:53)
[2025-01-15] MEDS: 0.9 % Sodium Chloride Flush 3 ML SYRINGE IVFLUSH ×2 (07:49→20:02)
[2025-01-15] MEDS: Furosemide 20 MG/2 ML VIAL IVPUSH (08:50)
--- NOTE | 2025-01-15 10:20 | MHC.CM.PN ---
BRIDGET 01/15. Pt self-care lives at home with her and 3 children. Pt will arrange her own transport home at discharge. Pt states she has a HCP, copy requested. PCP: Rosangela DUNAWAY at [facility]
--- NOTE | 2025-01-15 11:13 | HO.PM.IMPN ---
Subjective Subjective Date of Service: 01/15/25 Interval History: Continues with upper abdominal pain worsened by coughing. Still nauseous per patient Review of Systems Admits chest pain with cough Admits nausea/vomiting Denies fever chills Denies shortness of breath Physical Exam Vital Signs: Vital Signs: Last Vital Signs Temp 98 F 01/15/25 06:44 Pulse 82 01/15/25 07:43 Resp 18 01/15/25 07:43 BP 122/74 01/15/25 06:44 Pulse Ox 97 01/15/25 06:44 O2 Del Method Room Air 01/15/25 06:44 O2 Flow Rate 2 01/15/25 03:52 BMI result Body Mass Index 31.2 Const: Other: Awake alert oriented x3 no acute distress Resp: Other: Scant right upper lobe crackles Cardio: Other: No S4; positive S1-S2; no S3 murmurs rubs or gallops GI: Other: Soft tender across epigastrium; no rebound normoactive bowel sounds Extrem: Other: No edema bilaterally Objective Data Active Medications Acetaminophen (Acetaminophen 325 Mg Tablet) 650 mg PO Q6H PRN PRN Reason: Pain, Mild 1-3,fever,headache Benzonatate (Benzonatate 100 Mg Capsule) 100 mg PO TID PRN PRN Reason: Cough Last Admin: 01/15/25 08:50 Dose: 100 mg Documented By: JESSICA Calcium Carbonate (Calcium Carbonate 750 Mg Tab.Chew) 750 mg PO Q4H PRN PRN Reason: Heartburn Ceftriaxone Sodium (Ceftriaxone Sodium 1 Gm Vial) 1 gm IVPUSH Q24H [facility] Levalbuterol HCl 2.5 mg/ (Ipratropium Mazon 0.5 mg) 0 mg INHALE RQ4H WHILE AWAKE [facility] Last Admin: 01/15/25 07:34 Dose: 1 dose Documented By: MELISSA Enoxaparin Sodium (Enoxaparin Sodium 40 Mg/0.4 Ml Syringe) 40 mg SUBCUT Q24H [facility] Last Admin: 01/14/25 17:55 Dose: 40 mg Documented By: ANNIKA Furosemide (Furosemide 40 Mg Tablet) 40 mg PO DAILY [facility]; Protocol On Hold: 01/15/25 09:00 Furosemide (Furosemide 20 Mg/2 Ml Vial) 20 mg IVPUSH DAILY [facility]; Protocol Last Admin: 01/15/25 08:50 Dose: 20 mg Documented By: JESSICA Hydromorphone HCl (Hydromorphone Hcl 0.5 Mg/0.5 Ml Syringe) 0.5 mg IVPUSH Q4H PRN; Protocol PRN Reason: Pain, Severe (Pain Scale 7-10) Last Admin: 01/15/25 07:49 Dose: 0.5 mg Documented By: JESSICA Azithromycin 500 mg/ Sodium (Chloride) 250 mls @ 125 mls/hr IV Q24H [facility] Magnesium Hydroxide (Milk Of Magnesia 30 Ml Oral.Susp) 30 ml PO DAILY PRN PRN Reason: Constipation Melatonin (Melatonin 3 Mg Tablet) 6 mg PO BEDTIME PRN PRN Reason: Insomnia Metoclopramide HCl (Metoclopramide Hcl 10 Mg/2 Ml Vial) 10 mg IVPUSH Q6H PRN PRN Reason: Nausea and Vomiting Last Admin: 01/15/25 09:12 Dose: 10 mg Documented By: JESSICA Nicotine Polacrilex (Nicotine Polacrilex 2 Mg Gum) 2 mg BUCCAL Q2H PRN PRN Reason: Nicotine Cravings Omeprazole (Omeprazole 20 Mg Capsule.Dr) 20 mg PO BID@0630,1630 [facility] Last Admin: 01/15/25 06:42 Dose: 20 mg Documented By: KENNEDY Ondansetron HCl (Ondansetron Hcl 4 Mg/2 Ml Vial) 4 mg IVPUSH Q8H PRN PRN Reason: Nausea and Vomiting Last Admin: 01/15/25 00:55 Dose: 4 mg Documented By: KENNEDY Oxycodone HCl (Oxycodone Hcl Immed Release 5 Mg Tablet) 5 mg PO Q4H PRN PRN Reason: Pain, Moderate(Pain Scale 4-6) Sodium Chloride (0.9 % Sodium Chloride Flush 3 Ml Syringe) 3 ml IVFLUSH QSHIFT [facility] Last Admin: 01/15/25 07:49 Dose: 3 ml Documented By: JESSICA Labs 01/15/25 05:43 01/15/25 05:43 Labs: Laboratory Results - last 24 hr 01/14/25 01/14/25 01/14/25 12:32 17:24 21:01 MCV 88.9 MCH 31.3 MCHC 35.2 H RDW 14.2 Plt Count 153 L MPV 11.3 Immature Gran % (Auto) 0.5 H Neut % (Auto) 77.1 H Lymph % (Auto) 11.5 L Stevens % (Auto) 10.0 Eos % (Auto) 0.6 Baso % (Auto) 0.3 Lymph # (Auto) 0.9 L Stevens # (Auto) 0.8 Eos # (Auto) 0.1 Baso # (Auto) 0.0 Abs Immat Gran (auto) 0.04 H Absolute Neuts (auto) 5.9 Absolute Nucleated RBC 0.000 Nucleated RBC % (auto) 0.0 ESR 20 Anion Gap 15 Estim Creat Clear Calc 94.3 Estimated GFR > 60 Random Glucose 88 Lactic Acid 2.4 H* Lactic Acid F/U @ 2Hr 2.9 H* Lactic Acid F/U @ 4Hr Calcium 9.3 Magnesium 1.9 Total Bilirubin 0.6 AST 28 ALT 26 Alkaline Phosphatase 66 Troponin I High Sens 6.5 C-Reactive Protein 9.34 H B-Natriuretic Peptide 168 H Total Protein 7.2 Albumin 4.5 Lipase Beta HCG, Quant < 2 Urine Color Urine Appearance Urine pH Ur Specific Maxwell Urine Protein Urine Glucose (UA) Urine Ketones Urine Blood Urine Nitrite Ur Leukocyte Esterase Urine RBC Urine WBC Ur Squamous Epith Cells Urine Bacteria Hyaline Casts Influenza Type A (PCR) NEGATIVE Influenza Type B (PCR) NEGATIVE RSV RNA Qual (PCR) NEGATIVE SARS-CoV-2 RNA (RT-PCR) NEGATIVE 01/14/25 01/14/25 01/15/25 23:41 23:57 04:03 MCV MCH MCHC RDW Plt Count MPV Immature Gran % (Auto) Neut % (Auto) Lymph % (Auto) Stevens % (Auto) Eos % (Auto) Baso % (Auto) Lymph # (Auto) Stevens # (Auto) Eos # (Auto) Baso # (Auto) Abs Immat Gran (auto) Absolute Neuts (auto) Absolute Nucleated RBC Nucleated RBC % (auto) ESR Anion Gap 14 Estim Creat Clear Calc 103.7 Estimated GFR > 60 Random Glucose 205 H Lactic Acid 1.5 Lactic Acid F/U @ 2Hr Lactic Acid F/U @ 4Hr 3.2 H* Calcium 8.4 D Magnesium Total Bilirubin AST ALT Alkaline Phosphatase Troponin I High Sens C-Reactive Protein B-Natriuretic Peptide Total Protein Albumin Lipase 35 Beta HCG, Quant Urine Color Yellow Urine Appearance Clear Urine pH 6.0 Ur Specific Maxwell >= 1.030 H Urine Protein 30 (1+) H Urine Glucose (UA) 250 H Urine Ketones Trace Urine Blood Negative Urine Nitrite Negative Ur Leukocyte Esterase Negative Urine RBC 0-2 Urine WBC 0-5 Ur Squamous Epith Cells 11-20 Urine Bacteria 1+ Hyaline Casts 0-2 Influenza Type A (PCR) Influenza Type B (PCR) RSV RNA Qual (PCR) SARS-CoV-2 RNA (RT-PCR) 01/15/25 01/15/25 05:43 07:31 MCV 89.9 MCH 30.8 MCHC 34.3 RDW 14.2 Plt Count 150 L MPV 11.4 Immature Gran % (Auto) Neut % (Auto) Lymph % (Auto) Stevens % (Auto) Eos % (Auto) Baso % (Auto) Lymph # (Auto) Stevens # (Auto) Eos # (Auto) Baso # (Auto) Abs Immat Gran (auto) Absolute Neuts (auto) Absolute Nucleated RBC 0.000 Nucleated RBC % (auto) 0.0 ESR Anion Gap 12 Estim Creat Clear Calc 110.0 Estimated GFR > 60 Random Glucose 128 H Lactic Acid 1.1 Lactic Acid F/U @ 2Hr Lactic Acid F/U @ 4Hr Calcium 8.5 Magnesium Total Bilirubin AST ALT Alkaline Phosphatase Troponin I High Sens C-Reactive Protein B-Natriuretic Peptide Total Protein Albumin Lipase Beta HCG, Quant Urine Color Urine Appearance Urine pH Ur Specific Maxwell Urine Protein Urine Glucose (UA) Urine Ketones Urine Blood Urine Nitrite Ur Leukocyte Esterase Urine RBC Urine WBC Ur Squamous Epith Cells Urine Bacteria Hyaline Casts Influenza Type A (PCR) Influenza Type B (PCR) RSV RNA Qual (PCR) SARS-CoV-2 RNA (RT-PCR) Assessment and Plan (1) Intractable vomiting with nausea: Status: Acute (2) Pneumonia: Status: Acute (3) Acute asthma exacerbation: Status: Acute Plan Patient is a 34-year-old female with a past medical history significant for mild intermittent asthma, hypertension and new diagnosis cardiomyopathy with EF of 20% after have rhino virus in November, who presented to the ED due to cough, fever and dyspnea for the past 2 days. 1.Intractable vomiting - zofran/alternate with reglan - abd pain worse with cough...check CT adb/pelvis - follow renals/divalents 2.Pneumonia - chest CTA negative for PE, no aortic aneurysm or dissection. Right upper lobe ground-glass nodules and reticular changes likely developing infiltrate or interstitial pneumonitis. - ceftriaxone/azithro (2) - check urine strep and legionella with GI sx 3.Orthopnea with recent new diagnosis CHF - echocardiogram - continue lasix 20mg IV - follow renals/divalents 4.Acute asthma exacerbation - wheezing noted by ED provider, none currently - Solu-Medrol 60 mg IV q12h - levalbuterol/ipratropium q.4h while awake 5.Hypertension - acceptable control on Lasix only - hold metoprolol and valsartan, resume when appropriate Full code Lovenox Patient will require ongoing hospitalization for IV antibiotics to treat pneumonia and further workup of abdomen Quality Stroke Does the patient have a stroke diagnosis?: No VTE Prior VTE?: No VTE Risk Level:: Medical - moderate - high VTE Device Contraindication: Treatment Not Indicated VTE Drug Contraindication: N/A - Med Ordered
[2025-01-15] MEDS: oxyCODONE HCl Immed Release 5 MG TABLET PO (16:19)
[2025-01-15] MEDS: iohexoL 350 MG/ML 100 ML INFUS..BTL IV (18:08)
--- NOTE | 2025-01-15 19:30 | PC.NURSE ---
Addendum entered by Kaelyn Mcneill RN 01/16/25 01:18: HR has come down to 118, temp to 99.9, and pt is able to sleep at this time. Original Note: Pt's vitals, HR 130-140, BP: 133/77, RR: 20, Temp: 101F, O2: 91% RA with intermittent coughing fits causing SOB & 10/10 pain, and when asked about chest pain describes it as mild heartburn, with nasuea and vomiting. EKG ordered, that showed tachycardia. Pain meds given early per Dr. Nuñez.
[2025-01-15] MEDS: guaiFEN/Codeine SF 200/20/10ML 10 ML LIQUID 5 ML PO (19:56)
[2025-01-15 21:06] LABS: Troponin-I High Sensitivity 11.3 ng/L (<3.5-17.0)
[2025-01-16] VITALS (8 sets, daily range): BP systolic 125–133; BP diastolic 69–87; PULSE 83–109; RESP 16–20; TEMP 36.1–37.2; O2SAT 93–96
[2025-01-16] MEDS: guaiFEN/Codeine SF 200/20/10ML 10 ML LIQUID 5 ML PO ×3 (02:28→21:16)
[2025-01-16] MEDS: oxyCODONE HCl Immed Release 5 MG TABLET PO ×4 (05:50→21:07)
[2025-01-16] MEDS: 0.9 % Sodium Chloride Flush 3 ML SYRINGE IVFLUSH ×3 (05:51→23:26)
[2025-01-16 06:19] LABS: Hematocrit 40.3 % (37.0-47.0); Hemoglobin 13.9 g/dl (12.0-16.0); Mean Corpuscular HGB Conc 34.5 g/dl (31.0-35.0); Mean Corpuscular Hemoglobin 30.9 pg (27.0-33.0); Mean Corpuscular Volume 89.6 fL (80.0-98.0); NRBC Abs Auto 0.000 X10*3/uL (0.0-0.012); NRBC Pct Auto 0.0 /100WBC (0.0-0.2); Platelet Count 150 X10*3/uL (160-400); Red Blood Count 4.50 X10*6/uL (4.20-5.50); White Blood Count 6.8 X10*3/uL (4.8-10.8)
[2025-01-16] MEDS: Furosemide 20 MG/2 ML VIAL IVPUSH (07:49)
[2025-01-16] MEDS: levalbuterol HCL 2.5 MG, Ipratropium Bromide 0.5 MG INHALE ×3 (08:11→15:33)
--- NOTE | 2025-01-16 14:12 | P.PNIM_ITS ---
Subjective Subjective Date of Service: 01/16/25 Interval History: Continues to have persisting cough productive in nature. Upper abdominal lower chest pain worse with coughing Review of Systems Admits chest pain with cough Admits nausea/vomiting Denies fever chills Denies shortness of breath Physical Exam 2 Vital Signs: Vital Signs: Last Vital Signs Temp 98.1 F 01/16/25 08:00 Pulse 90 01/16/25 11:25 Resp 18 01/16/25 11:25 BP 131/87 01/16/25 08:00 Pulse Ox 95 01/16/25 08:00 O2 Del Method Room Air 01/16/25 08:00 O2 Flow Rate 2 01/15/25 03:52 BMI result Body Mass Index 31.2 Const: Other: Awake alert oriented x3 no acute distress Resp: Other: Scant right upper lobe crackles Cardio: Other: No S4; positive S1-S2; no S3 murmurs rubs or gallops GI: Other: Soft tender across epigastrium; no rebound normoactive bowel sounds Extrem: Other: No edema bilaterally Objective Data Active Medications Acetaminophen (Acetaminophen 325 Mg Tablet) 650 mg PO Q6H PRN PRN Reason: Pain, Mild 1-3,fever,headache Last Admin: 01/16/25 02:23 Dose: 650 mg Documented By: KENNEDY Comments: per pt request Benzonatate (Benzonatate 100 Mg Capsule) 100 mg PO TID PRN PRN Reason: Cough Last Admin: 01/16/25 13:52 Dose: 100 mg Documented By: ELIO Calcium Carbonate (Calcium Carbonate 750 Mg Tab.Chew) 750 mg PO Q4H PRN PRN Reason: Heartburn Ceftriaxone Sodium (Ceftriaxone Sodium 1 Gm Vial) 1 gm IVPUSH Q24H [facility] Last Admin: 01/15/25 18:13 Dose: 1 gm Documented By: JESSICA Levalbuterol HCl 2.5 mg/ (Ipratropium Boles 0.5 mg) 0 mg INHALE RQ4H WHILE AWAKE [facility] Last Admin: 01/16/25 11:23 Dose: 2 dose Documented By: ESMER Enoxaparin Sodium (Enoxaparin Sodium 40 Mg/0.4 Ml Syringe) 40 mg SUBCUT Q24H [facility] Last Admin: 01/15/25 18:14 Dose: 40 mg Documented By: JESSICA Furosemide (Furosemide 40 Mg Tablet) 40 mg PO DAILY [facility]; Protocol On Hold: 01/15/25 09:00 Furosemide (Furosemide 20 Mg/2 Ml Vial) 20 mg IVPUSH DAILY [facility]; Protocol Last Admin: 01/16/25 07:49 Dose: 20 mg Documented By: ELIO Guaifenesin/Codeine Phosphate (Guaifen/Codeine Sf 200/20/10ml 10 Ml Liquid) 5 ml PO Q6H PRN PRN Reason: Cough Last Admin: 01/16/25 09:49 Dose: 5 ml Documented By: ELIO Hydromorphone HCl (Hydromorphone Hcl 0.5 Mg/0.5 Ml Syringe) 0.5 mg IVPUSH Q4H PRN; Protocol PRN Reason: Pain, Severe (Pain Scale 7-10) Last Admin: 01/15/25 19:59 Dose: 0.5 mg Documented By: KENNEDY Azithromycin 500 mg/ Sodium (Chloride) 250 mls @ 125 mls/hr IV Q24H [facility] Last Infusion: 01/15/25 20:13 Dose: Infused Documented By: KENNEDY Magnesium Hydroxide (Milk Of Magnesia 30 Ml Oral.Susp) 30 ml PO DAILY PRN PRN Reason: Constipation Melatonin (Melatonin 3 Mg Tablet) 6 mg PO BEDTIME PRN PRN Reason: Insomnia Metoclopramide HCl (Metoclopramide Hcl 10 Mg/2 Ml Vial) 10 mg IVPUSH Q6H PRN PRN Reason: Nausea and Vomiting Last Admin: 01/15/25 16:18 Dose: 10 mg Documented By: JESSICA Nicotine Polacrilex (Nicotine Polacrilex 2 Mg Gum) 2 mg BUCCAL Q2H PRN PRN Reason: Nicotine Cravings Ondansetron HCl (Ondansetron Hcl 4 Mg/2 Ml Vial) 4 mg IVPUSH Q8H PRN PRN Reason: Nausea and Vomiting Last Admin: 01/15/25 20:34 Dose: 4 mg Documented By: KENNEDY Oxycodone HCl (Oxycodone Hcl Immed Release 5 Mg Tablet) 5 mg PO Q4H PRN PRN Reason: Pain, Moderate(Pain Scale 4-6) Last Admin: 01/16/25 13:52 Dose: 5 mg Documented By: ELIO Pantoprazole Sodium (Pantoprazole Sodium 40 Mg/10 Ml Vial) 40 mg IVPUSH BID@0630,1630 [facility] Last Admin: 01/16/25 09:49 Dose: 40 mg Documented By: ELIO Sodium Chloride (0.9 % Sodium Chloride Flush 3 Ml Syringe) 3 ml IVFLUSH QSHIFT [facility] Last Admin: 01/16/25 05:51 Dose: 3 ml Documented By: ELIO Labs 01/16/25 05:44 01/15/25 05:43 Labs: Laboratory Results - last 24 hr 01/15/25 01/16/25 20:16 05:44 MCV 89.6 MCH 30.9 MCHC 34.5 RDW 14.0 Plt Count 150 L MPV 11.2 Absolute Nucleated RBC 0.000 Nucleated RBC % (auto) 0.0 Troponin I High Sens 11.3 D Microbiology Microbiology Results: Microbiology 01/14/25 17:25 Blood Culture - Preliminary Blood - Venous No growth after 24 hours. 01/14/25 17:26 Blood Culture - Preliminary Blood - Venous No growth after 24 hours. Assessment and Plan (1) Intractable vomiting with nausea: Status: Acute (2) Pneumonia: Status: Acute (3) Acute asthma exacerbation: Status: Acute Plan Patient is a 34-year-old female with a past medical history significant for mild intermittent asthma, hypertension and new diagnosis cardiomyopathy with EF of 20% after have rhino virus in November, who presented to the ED due to cough, fever and dyspnea for the past 2 days. 1.Intractable vomiting - zofran/alternate with reglan ... More effective last 24 hours -switch PPI to pantoprazole q.12 hours - abd pain worse with cough... CT scan abdomen pelvis negative for acute abnormalities -aggressive treatment of 2. - follow renals/divalents 2.Pneumonia - add pulse dose steroids; 125 mg IV x1 followed by 60 mg IV q.6 - ceftriaxone/azithro (3) - check urine strep and legionella with GI sx.... Pending -blood cultures negative times 24 hours 3.Orthopnea with recent ?new diagnosis CHF - echocardiogram...LVEF 40-45% - continue lasix 20mg IV... Findings more likely related to pneumonia and CHF - follow renals/divalents 4.Acute asthma exacerbation - wheezing noted by ED provider, none currently - Solu-Medrol 60 mg IV q12h - levalbuterol/ipratropium q.4h while awake 5.Hypertension - acceptable control on Lasix only - hold metoprolol and valsartan, resume when appropriate Full code Lovenox Patient will require ongoing hospitalization for IV antibiotics to treat pneumonia and further workup of abdomen. High risk for outpatient failure Quality Stroke Does the patient have a stroke diagnosis?: No VTE Prior VTE?: No VTE Risk Level:: Medical - moderate - high VTE Device Contraindication: Treatment Not Indicated VTE Drug Contraindication: N/A - Med Ordered
--- NOTE | 2025-01-16 15:04 | MHC.CM.PN ---
EMR reviewed and per MD rounds, pt is not medically cleared for discharge due to management of pneumonia and further workup of abdomen.
[2025-01-17 04:00] VITALS: BP 161/82; PULSE 83; RESP 18; TEMP 36.6; O2SAT 97
[2025-01-17 07:15] LABS: Hematocrit 39.1 % (37.0-47.0); Hemoglobin 13.6 g/dl (12.0-16.0); Mean Corpuscular HGB Conc 34.8 g/dl (31.0-35.0); Mean Corpuscular Hemoglobin 30.9 pg (27.0-33.0); Mean Corpuscular Volume 88.9 fL (80.0-98.0); NRBC Abs Auto 0.000 X10*3/uL (0.0-0.012); NRBC Pct Auto 0.0 /100WBC (0.0-0.2); Platelet Count 172 X10*3/uL (160-400); Red Blood Count 4.40 X10*6/uL (4.20-5.50); White Blood Count 8.5 X10*3/uL (4.8-10.8)
[2025-01-17 07:32] VITALS: BP 123/76; PULSE 80; RESP 18; TEMP 36; O2SAT 96
[2025-01-17] MEDS: levalbuterol HCL 2.5 MG, Ipratropium Bromide 0.5 MG INHALE ×2 (08:00→11:24)
[2025-01-17 08:02] VITALS: PULSE 96; RESP 20; O2SAT 98
[2025-01-17] MEDS: Furosemide 20 MG/2 ML VIAL IVPUSH (09:08)
[2025-01-17] MEDS: guaiFEN/Codeine SF 200/20/10ML 10 ML LIQUID 5 ML PO (09:08)
[2025-01-17] MEDS: 0.9 % Sodium Chloride Flush 3 ML SYRINGE IVFLUSH (09:17)
[2025-01-17 11:27] VITALS: PULSE 79; RESP 18; O2SAT 98
--- NOTE | 2025-01-17 12:55 | P.DS_ITS ---
DS: Providers Provider Date of Service: 01/17/25 Date of admission: 01/16/25 10:51 Date of discharge: 01/17/25 Primary care physician: Rosangela Webber PA-C DS: Diagnosis Discharge Diagnosis (1) Intractable vomiting with nausea: Status: Acute (2) Pneumonia: Status: Acute (3) Acute asthma exacerbation: Status: Acute DS: Summary Hospital Course Hospital Course: 4-year-old female with a past medical history significant for mild intermittent asthma, hypertension and new diagnosis cardiomyopathy with EF of 20% after have rhino virus in November, who presented to the ED due to cough, fever and dyspnea for the past 2 days. The patient reports that she has been followed by Cardiology at [facility] due to having a new diagnosis of congestive heart fail ure with unknown cause, s/p normal cardiac catheterization. She denies history of alcohol or cocaine use. She reports 2 of her brothers passed from congestive heart failure at a young age however they had history of congenital heart issues and cocaine use. She has had a max temperature of 101 degrees for the past 2 days with a productive cough. She reports that she feels like she is ?drowning and ?. She is taking her Lasix but has had severe nausea and vomiting in his unsure if she has been able to keep her medications down. She reports that her inhaler has been causing shakiness and has not been helping her symptoms. She does not feel that she is wheezing. She has been hospitalized at least 3 times since November at [facility] and [facility] for CHF. Hospital course Patient was admitted to general medical floor and started on ceftriaxone and azithromycin to cover community-acquired pneumonia. Patient did receive IV Lasix however exam was consistent with a pneumonia/asthma COPD exacerbation. 2D echo was done which demonstrates an improved LVEF of 40-45%. Patient did complain of considerable abdominal pain for which an abdominal pelvic CT was done with IV contrast which failed to demonstrate any acute abnormalities. Given a negative CTA abdominal pain thought to be related to cough. She got a dose of methylprednisolone and improved greatly overnight and is anxious to be discharge. At this point in time she does not have an O2 requirement and is medically acceptable for discharge and to follow up with the PCP Time Attestation Discharge Coordination Time (in mins): 35 Quality: Safe Use of Opioids Does Pt have an Active Cancer Diagnosis on the Problem List?: No Quality: Stroke Does the patient have a stroke diagnosis?: No Physical Exam Vital Signs: Vital Signs: Last Vital Signs Temp 96.8 F 01/17/25 07:32 Pulse 79 01/17/25 11:27 Resp 18 01/17/25 11:27 BP 123/76 01/17/25 07:32 Pulse Ox 96 01/17/25 07:32 O2 Del Method Room Air 01/17/25 07:32 O2 Flow Rate 2 01/15/25 03:52 BMI result Body Mass Index 31.2 Const: Other: Awake alert oriented x3 no acute distress Resp: Other: Scattered expiratory wheezes throughout with coarse rhonchi that clear with cough Cardio: Other: No S4; positive S1-S2; no S3 murmurs rubs or gallops GI: Other: Soft tender across epigastrium; no rebound normoactive bowel sounds Extrem: Other: No edema bilaterally DS: Data Data Completed and Pending Labs on day of discharge: Laboratory Results - last 24 hr 01/17/25 05:02 WBC 8.5 RBC 4.40 Hgb 13.6 Hct 39.1 MCV 88.9 MCH 30.9 MCHC 34.8 RDW 13.8 Plt Count 172 MPV 11.8 Absolute Nucleated RBC 0.000 Nucleated RBC % (auto) 0.0 Preliminary micro results at discharge 01/14/25 17:25 Blood Culture - Preliminary Blood - Venous No growth after 48 hours. 01/14/25 17:26 Blood Culture - Preliminary Blood - Venous No growth after 48 hours. Discharge Plan Discharge Anticipated Discharge Date/Time: 01/17/25 12:48 Patient Disposition: Home, Self-Care Discharge Diagnosis: Asthma exacerbation secondary to pneumonia Referrals: Rosangela Webber PA-C [Primary Care Provider, Internal Medicine] - 1 Week Discharge Medications: New codeine-guaifenesin 10-100 mg/5 mL Liquid 5 ml PO Q6H PRN (Reason: Cough) Qty: 180 0RF prednisone 10 mg tablet See Rx Instructions .Route .COMPLEX Qty: 45 0RF Rx Instructions: 10 mg orally; 5 tabs p.o. daily x3 days; 4 tabs p.o. daily x3 days; 3 tabs daily x3 days; 2 tabs daily x3 days; 1 tab daily x3 days cefuroxime axetil 500 mg tablet 500 mg PO BID 7 Days Qty: 14 0RF Continued furosemide 40 mg tablet 40 mg PO DAILY valsartan 80 mg tablet 80 mg PO DAILY metoprolol tartrate 25 mg tablet 25 mg PO BID Discharge Orders: Discharge Order (Routine); Ordered 01/17/25 Ordered By: Elvin Hughes Diet: Advance to usual diet Activity on Discharge: As tolerated Stand Alone Forms: Patient Portal Discharge page Print Language: Malay Care Plan Goals: Continue all your medicines today took previously to hospital Health Concerns: Prednisone taper as directed with food; Ceftin 500 mg twice daily for 7 days for pneumonia. Robitussin with codeine as needed for cough Plan of Treatment: Follow up with the PCP next available Assessment: See discharge summary
--- NOTE | 2025-01-17 12:58 | MHC.CM.PN ---
DP: PT HAS BEEN MEDICALLY CLEARED FOR DC HOME, NO SERVICES. PT HAS OWN RIDE HOME.
--- NOTE | 2025-01-17 18:57 | P.CDIM_ITS ---
PROVIDER RESPONSE TEXT: To clarify, the appropriate diagnosis supported by the clinical indicators: Other (explain): related to albuterol QUERY TEXT: PHYSICIAN'S DOCUMENTATION REQUEST Date of Query: 01/17/2025 09:24 AM EDT Patient Name: Annie Miranda Admit Date: 01/16/2025 Dear Elvin Hughes DO, A review of the medical record indicates additional documentation may be needed. Please review below and update the documentation accordingly. Clinical Indicators: LABS: LA 3.2 H Fluids Event note 01/15/25 - lactic acid continues to increase from 2.4 to 2.9 now 3.2. Pt did receive albuterol. Based on the above, could you clarify if there is a diagnosis that correlates with these findings: Acute lactic acidosis possible, resolved, probable, etc. Labs indicate a diagnosis of (please specify) Other (explain) Clinically unable to determine (explain) Thank you, Savi Fiore, CCS, CDIS Use of terms such as suspected, likely, concern for, or probable (associated with a specific diagnosis that is being evaluated, monitored, or treated as if it exists) are acceptable and can be coded in the inpatient setting, when documented at the time of discharge. Please use your independent medical judgment in providing your response. THIS QUERY IS PART OF THE PERMANENT MEDICAL RECORD
[2025-01-21 01:08] LABS: Strep Pneumo Ag urine Not Detected (Not Detected)
== END 2025-01-17 14:06 | disposition home or self-care (01) | DRG 139 ==
LOC: HO.ED 16:54 → HO.EDOVER 17:17 → HO.S3 19:03
PROVIDERS: Hospitalist; Physician Assistant; Physician Assistant Medical; Admitting Provider Student in an Organized Health Care Education/Training Program; Emergency Provider Emergency Medicine; PCP Physician Assistant; Visit Provider Hospitalist
DX: J18.9 Pneumonia, unspecified organism (principal); I50.23 Acute on chronic systolic (congestive) heart failure; I42.8 Other cardiomyopathies; J45.21 Mild intermittent asthma with (acute) exacerbation; F17.210 Nicotine dependence, cigarettes, uncomplicated; I11.0 Hypertensive heart disease with heart failure; Z71.6 Tobacco abuse counseling; Z20.822 Contact with and (suspected) exposure to COVID-19; Z79.899 Other long term (current) drug therapy
CPT/HCPCS: 0241U; 36415; 71046; 71275; 74177; 80048; 80053; 81001; 83605; 83690; 83735; 83880; 84484; 84702; 85025; 85027; 85652; 86140; 87040; 87449; 87899; 93005; 93306; 94640; 99285; J0456; J0696; J1171; J1308; J1650; J1938; J2405; J2470; J2765; J2919; J7120; Q9957; Q9967

== ENCOUNTER → 2025-01-14 11:16 | Outpatient (BNV) | payer MEDICAID, SELFPAY | PROVIDERS: Emergency Provider Emergency Medicine; PCP Dentist General Practice; Visit Provider Internal Medicine Cardiovascular Disease | DX: R07.9 Chest pain, unspecified (principal) | CPT/HCPCS: 93010 ==

== ENCOUNTER → 2025-01-14 12:12 | Outpatient (BNV) | payer MEDICAID, SELFPAY | PROVIDERS: Emergency Provider Emergency Medicine; PCP Dentist General Practice; Visit Provider Radiology Diagnostic Radiology | DX: R91.8 Other nonspecific abnormal finding of lung field (principal); R05.9 Cough, unspecified | CPT/HCPCS: 71046; 71275 ==

== ENCOUNTER 2025-01-14 17:06 | Outpatient (BNV) | payer MEDICAID, SELFPAY | END 2025-01-15 17:54 | PROVIDERS: Admitting Provider Student in an Organized Health Care Education/Training Program; Emergency Provider Emergency Medicine; PCP Physician Assistant; Visit Provider Radiology Vascular & Interventional Radiology | DX: N83.202 Unspecified ovarian cyst, left side (principal) | CPT/HCPCS: 74177 ==

== ENCOUNTER 2025-01-14 17:06 | Outpatient (BNV) | payer MEDICAID, SELFPAY | END 2025-01-15 07:00 | PROVIDERS: Admitting Provider Student in an Organized Health Care Education/Training Program; Emergency Provider Emergency Medicine; PCP Dentist General Practice; Visit Provider Internal Medicine Cardiovascular Disease | DX: I34.0 Nonrheumatic mitral (valve) insufficiency (principal) | CPT/HCPCS: 93306 ==

== ENCOUNTER → 2025-01-14 17:06 | Outpatient (BNV) | payer MEDICAID, SELFPAY | PROVIDERS: Admitting Provider Student in an Organized Health Care Education/Training Program; Emergency Provider Emergency Medicine; PCP Dentist General Practice; Visit Provider Physician Assistant | DX: R11.2 Nausea with vomiting, unspecified (principal); J18.9 Pneumonia, unspecified organism; J45.901 Unspecified asthma with (acute) exacerbation | CPT/HCPCS: 99223; 99232; 99239; 99499 ==

== ENCOUNTER 2025-05-19 13:16 | Emergency (ER) | payer MEDICAID, SELFPAY ==
--- OUTSIDE RECORDS SUMMARY | 2025-05-15 22:59 | XMS_ITS | Continuity of Care Document ---
Author Organization [facility] Address [address] [place] [address]- Care Team Providers Care Clipper Counters Name Role Phone Elizabeth Alvarez MD Primary Care Phys[place] [facility] [place] - 05/15/[address] [address] Attending Physician: Ana Laura Mabry MD Admitting Physician: Ana Laura Mabry MD Referring Physician: Roger Huddleston MD Encounter Type: Pre-OutPatient One Time Allergies, Adverse Reactions, Alerts Substance Criticality Severity Reaction Reaction Severity Status ciprofloxacin Active Levaquin Unable to assess criticality Persistent Severe Active Bactrim Unable to assess criticality Persistent Severe Active Latex Active Immunizations Given and Recorded Vaccine Date Status Refusal Reason influenza virus vaccine, inactivated 09/14/23 Give n influenza virus vaccine, inactivated 08/31/21 Give n influenza virus vaccine, inactivated 05/13/20 Give n influenza virus vaccine, inactivated 07/03/18 Give n influenza virus vaccine, inactivated 07/05/17 Give n SARS-CoV-2 mRNA ([id number]) vax 09/07/21 Recorded SARS-CoV-2 mRNA ([id number]) vax 08/17/21 Recorded tetanus/diphtheria/pertussis, acel(Tdap) 10/14/17 Given tetanus/diphtheria/pertussis, acel(Tdap) 1 01/11/12 Given Human Papillomavirus Vaccine 11/12/15 Recorded Human Papillomavirus Vaccine 08/15/15 Recorded Human Papillomavirus Vaccine 05/06/15 Recorded 1Admin Note: VIS 08/10/2011 Medications acetaminophen 325 mg oral tablet 650 mg, 2, tablet, By Mouth, Every 6 hours, PRN, # 50 tablet, Refills 1, Tot. Refills 1, Maintenance, Pain , Mild, 11/27/21 3:59:00 PM EDT, Route to Pharmacy Electronically, [facility]/pharmacy #[id number], Partial fill upon patient request if the prescription is for a schedule II opioid drug., 155, cm, :17:00 EDT, Height Start Date: 11/27/21 Status: Ordered Medication Dispense Status: Completed Quantity: 50.0 Unit: tablet Total Allowed Fills: 2 Fills Dispensed: 0 Albuterol (Eqv-Proventil HFA) 90 mcg/inh inhalation aerosol 2 puffs, Inhalation, Every 6 hours, PRN Wheezing/Shortness of Breath, # 18 Gm, 5 Refills, Maintenance, 03/29/24 3:35:00 PM EDT, [facility]/pharmacy #[id number], Partial fill upon patient request if the prescription is for a schedule II opioid drug., 155, cm, 02/14/24 10:48:00 EDT, Height Start Date: 03/29/24 Status: Ordered Medication Dispense Status: Completed Quantity: 18.0 Unit: g Total Allowed Fills: 6 Fills Dispensed: 0 albuterol 0.083% inhalation solution See Instructions, PRN for wheezing, 3 mL Inhalation Every 4 to 6 hours prn, # 60 each, 0 Refills, Maintenance, 04/03/25 12:44:00 PM EDT, Solution, [facility]/pharmacy #[id number], Partial fill upon patient requestif the prescription is for a schedule II opioid drug., 155, cm, 12/23/24 18:21:00 EDT, Height, 77, kg, 12/04/24 13:16:00 EDT, Dry Weight Start Date: 04/03/25 Status: Ordered Medication Dispense Status: Completed Quantity: 60.0 Unit: each Total Allowed Fills: 1 Fills Dispensed: 0 amlodipine-olmesartan 5 mg-20 mg oral tablet 1 tablet, By Mouth, Daily, # 30 tablet, 0 Refills, Maintenance, 12/02/24 12:17:00 PM EDT, Tablet, Partial fill upon patient request if the prescription is for a schedule II opioid drug. Start Date: 12/02/24 Stop Date: 01/01/25 Status: Ordered Medication Dispense Status: Completed Quantity: 30.0 Unit: tablet Total Allowed Fills: 1 Fills Dispensed: 0 aspirin 81 mg oral capsule 1 capsule = 81 mg, By Mouth, Daily, do not exceed 48 capsules in 24 hours, # 30 capsule, 0 Refills,Maintenance, 11/30/24 5:18:00 PM EDT, Capsule, Partial fill upon patient request if the prescriptionis for a schedule II opioid drug. Start Date: 11/30/24 Status: Ordered Medication Dispense Status: Completed Quantity: 30.0 Unit: capsule Total Allowed Fills: 1 Fills Dispensed: 0 famotidine 20 mg oral tablet 20 mg, 1, tablet, By Mouth, 2 times a day, # 60 tablet, Refills 0, Tot. Refills 0, Maintenance, 02/14/24 11:01:00 AM EDT, Route to Pharmacy Electronically, [facility]/pharmacy #[id number], Partial fill upon patient request if the prescription is for a schedule II opioid drug., 155, cm, 02/14/24 10:48:00 EDT, Height Start Date: 02/14/24 Status: Ordered Medication Dispense Status: Completed Quantity: 60.0 Unit: tablet Total Allowed Fills: 1 Fills Dispensed: 0 metoprolol 25 mg oral tablet 12.5 mg, By Mouth, 2 times a day, # 60 tablet, Refills 0, Tot. Refills 0, Maintenance, 12/02/24 12:15:00 PM EDT, Route to Pharmacy Electronically, [facility]/pharmacy #[id number], Partial fill upon patient requestif the prescription is for a schedule II opioid drug., 155, cm, 12/02/24 3:44:00 EDT, Height, 76.1,kg, 11/30/24 17:01:00 EDT, Dry Weight Start Date: 12/02/24 Stop Date: 01/01/25 Status: Ordered Medication Dispense Status: Completed Quantity: 60.0 Unit: tablet Total Allowed Fills: 1 Fills Dispensed: 0 Nebulizer/Compressor See Instructions, # 1 each, Maintenance, dx asthma use every 4-6 hours as needed, 03/29/24 11:55:00 AM EDT, Supply Start Date: 03/29/24 Status: Ordered Medication Dispense Status: Completed Quantity: 1.0 Unit: each Total Allowed Fills: 1 Fills Dispensed: 0 Nebulizer/Compressor See Instructions, # 1 each, Maintenance, Send needed tubing, supplies with cimoressor., 03/29/24 1:20:00 PM EDT, Supply Start Date: 03/29/24 Status: Ordered Medication Dispense Status: Completed Quantity: 1.0 Unit: each Total Allowed Fills: 1 Fills Dispensed: 0 Indications: Bronchitis, not specified as acute or chronic; omeprazole 20 mg oral enteric coated capsule 1 capsule = 20 mg, By Mouth, Daily, PRN heartburn, on empty stomach, # 30 capsule, 2 Refills, Maintenance, 04/27/22 8:29:00 PM EDT, CR Capsule, [facility] #[id number], Partial fill upon patient request if the prescription is for a schedule II opioid drug., 155, cm, 02/12/22 14:17:00 EDT, Height Start Date: 04/27/22 Stop Date: 07/26/22 Status: Ordered Medication Dispense Status: Completed Quantity: 30.0 Unit: capsule Total Allowed Fills: 3 Fills Dispensed: 0 Problem List Condition Confirmation Course Effective Dates Status Health St atus Informant Bipolar disease, chronic Confirmed Active GERD (gastroesophageal reflux disease) Confirmed Active ASCUS with positive high risk HPV 1, 2, 3, 4, 5, 6, 7, 8, 9 Confirmed 2017 Active Obese class I Confirmed Active Lonny Umesh, 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 pt notified and referred to [facility] for treatment. 2colpo - [facility], bx 7, 11 o'clock, cw hg 3No showed appointment x 2. 4No showed colpo appt, will reschedule 5no dysplasia; Pap LG/HG/+HPV. cotesting September 2019. 6colpo, pap, ecc, bx x 2 DNKA colpo 8DNKA colpo 9referred for colpo Social History Social History Type Response Smoking Status 5-9 cigarettes (betw een 1/4 to 1/2 pack)/day in last 30 days entered on: 12/28/22 Sex Sex Representation Female (finding) Patient Care team information Care Team Personnel Name: Agnes Mo RN Position: [facility] SN RN Member Role: Primary Care Nurse Name: Elizabeth Alvarez MD Position: [facility] Resident Member Role: PCP Address: [address] [place] [address] Telecom: Care Team Related Persons Name: SANJAY TRIMBLE Name: ZINA TRIMBLE Name: MENG BERRY Insurance Providers Guarantor name: [facility] Health Plan Information #: 1 Payer: [employer] Payer Identifier: URSULA Member Number: [id number] Group Number: [id number] Subscriber Identifier: URSULA Relationship to Subscriber: self Coverage Type: Self-pay (Includes applicants for insurance and Medicaid applicants) Coverage Verification Date: URSULA Telecom: URSULA Address:
--- NOTE | ~2025-05-19 | XR_ITS ---
CLINICAL HISTORY: cough --- Additional Notes or Special Instructions: Breathing treatment @1620--CM 2 view chest x-ray Comparison: CR/SR - XR CHEST 2 VIEWS - 01/14/25 12:51 EDT CR/UT/SR - XR CHEST 2V - 03/27/24 09:22 EDT Findings: Mild diffuse ground-glass pulmonary opacity. Normal size heart. No acute fracture. IMPRESSION: Mild atypical pneumonia. This document has been electronically signed by: Mark Puente MD on 05/19/2025 17:22:03
--- NOTE | 2025-05-19 13:18 | ECG_ITS ---
Test Reason : CHEST PAIN Blood Pressure : */* mmHG Vent. Rate : 123 BPM Atrial Rate : 123 BPM P-R Int : 138 ms QRS Dur : 88 ms QT Int : 332 ms P-R-T Axes : 13 67 48 degrees QTcB Int : 475 ms Sinus tachycardia Otherwise normal ECG When compared with ECG of 15-Jan-2025 19:33, No significant change was found Referred By: Rebecca Boss Electronically Signed By: Luis Mack
[2025-05-19 13:29] VITALS: BP 139/83; PULSE 123; RESP 24; TEMP 36.2; O2SAT 96; BMI 31.9
--- NOTE | 2025-05-19 13:29 | ED_ITS ---
HPI - Chest Pain General Chief Complaint: General Medical Stated Complaint: CP, not feeling well Time Seen by Provider: 05/19/25 15:21 Source: patient Mode of arrival: ambulatory Limitations: no limitations History of Present Illness ED Provider: HPI narrative: 34-year-old woman presenting with cough, congestion, reports chest pain and post-tussive vomiting for the past 3 days, last time seen for similar in December of this year, states at that point she had medications including metoprolol, valsartan, and furosemide as she was prior to that diagnosed with pericarditis and decreased EF though when she was admitted here at that time EF was much improved. But she states that she has not been able to see a PCP until recently she was finally able to make a follow up appointment and is seeing a PCP on this month Related Data Home Medications ?Medication ?Instructions ?Recorded ?Confirmed furosemide 40 mg tablet 40 mg PO DAILY 01/14/2512/18 metoprolol tartrate 25 mg tablet 25 mg PO BID 01/14/25 01/14/25 valsartan 80 mg tablet 80 mg PO DAILY 01/14/2512/18 Previous Rx's ?Medication ?Instructions ?Recorded cefuroxime axetil 500 mg tablet 500 mg PO BID 7 days # 14 tabs 01/17/25 codeine 10 mg-guaifenesin 100 mg/5 5 ml PO Q6H PRN Cou gh #180 mL 01/17/25 mL oral liquid prednisone 10 mg tablet See Rx Instructions .Route 0 01/17/25 .COMPLEX #45 tabs azithromycin 250 mg tablet 250 mg PO DAILY 4 days #4 t abs 05/19/25 codeine 7.5 mg-guaifenesin 225 7.5 ml PO Q4-6H PRN cou gh 5 days 05/19/25 mg/5 mL oral liquid #473 mL furosemide 40 mg tablet (Lasix) 40 mg PO DAILY 14 days #14 tabs 05/19/25 metoprolol tartrate 25 mg tablet 25 mg PO DAILY 14 day s #14 tabs 05/19/25 prednisone 20 mg tablet 40 mg (2 x 20 mg) PO DAILY 5 days 05/19/25 #10 tabs valsartan 80 mg tablet 80 mg PO DAILY 14 days #14 t abs 05/19/25 Allergies Allergy/AdvReac Type Severity Reaction Status Date / Time ciprofloxacin (From CIPRO) Allergy Unknown SOB HIVES Verified 05/19/25 13:32 latex (LATEX) Allergy Unknown HIVES Verified 05/19/25 13:32 levofloxacin (From LEVAQUIN) Allergy Unknown SOB,HIVES Verified 05/19/25 13:32 sulfamethoxazole (From Allergy Unknown SOB HIVES Verified 05/19/25 13:32 BACTRIM) trimethoprim (From BACTRIM) Allergy Unknown SOB HIVES Verified 05/19/25 13:32 Review of Systems 2 Constitutional: Constitutional: Reports as per [facility] Past Medical History Medical History Nonischemic cardiomyopathy Asthma Social History Social History Household Members: Family Housing: Apartment Do you presently have visiting nurse or other home services: No Patient Tobacco Use Status: Current everyday Tobacco user Tobacco use type: Cigarette Cigarette Packs Per Day: 0.25 Cigarettes Per Day: 5.0 e-Cigarette/Vaping Use: Never Used Second Hand Smoke Exposure: Yes Advance Directives: No Advance Directives Information Provided: No service: No Physical Exam 2 Exam: Exam: General: ?Appears of stated age, patient sitting on a gurney, shaky legs, somewhat restless, ? ?uvula midline, speaking full sentences ? Neck: Supple, no LAD ? ?CV: S1-S2 very pulses +2 ? ?Resp: ?Tachypneic, minimal wheezing, no rales, no stridor ? Abd: ?Bowel sounds are present, no tenderness no rebound no rigidity ? ?MSK: FROM, strength 5/5 all extremities, no lower extremity edema ? Skin: Warm, dry, intact, ? ?Neuro: ?Alert and oriented x3, moving upper and lower extremities symmetrically, no obvious facial asymmetry noted, cranial nerves 2-12 intact Vital Signs: Vital Signs: Last Vital Signs Temp 97.2 F 05/19/25 13:29 Pulse 114 H 05/19/25 16:13 Resp 21 H 05/19/25 16:13 BP 139/83 05/19/25 13:29 Pulse Ox 96 05/19/25 13:29 O2 Del Method Room Air 05/19/25 13:29 BMI result Body Mass Index 31.9 Course Course Course Narrative: This is a Rapid Medical Exam performed in triage by Rebecca Boss PA-C. Full HPI, ROS and PE to be performed by primary ED provider. 34 yo F w/pmhx asthma, cardiomyopathy presenting to the ED c/o URI sx, chest pain, SOB, lower abdominal pain, N/V x 3 days. denies sick contacts PE: emesis bag in hand, abdomen soft diffusley ttp. no rebound or guarding, +congested Plan: EKG, labs, CXR Medications Administered Discontinued Medications Generic Name Dose Route Start Last Admin Trade Name Freq PRN Reason Stop Dose Admin Levalbuterol HCl 2.5 mg/ 0 mg 05/19/25 16:07 05/19/25 16:11 Ipratropium [place] 0.5 mg INHALE 05/19/25 16:08 1 dose ONCE ONE Administration Guaifenesin/Codeine Phosphate 10 ml 05/19/25 15:47 05/19/25 15:54 Guaifen/Codeine Sf 200/20/10ml 10 Ml Liquid PO 05/19/25 15:48 10 ml ONCE STA Administration Prednisone 60 mg 05/19/25 15:47 05/19/25 15:54 Prednisone 20 Mg Tablet PO 05/19/25 15:48 60 mg ONCE ONE Administration Procedures Ultrasound ED POC Ultrasound: EMERGENCY ULTRASOUND REPORT?Point of Care Cardiac (Echo-Focus), images I locally stored Emergent Cardiac for Indication: Dyspnea Views Used: Parasternal long, parasternal short, 4 chamber, subxiphoid, IVC Pericardial Effusion/Tamponade Findings: Global LV Fxn: Intact IVC Dilation and Resp Variation: IVC less than 50% collapsed Impression no dehydration, large lb, no RV, no pericardial effusion, consistent with euvolemia, chronic hypotension, EF likely 45% Medical Decision Making Medical Decision Making MDM Narrative: 3:56 PM 05/19/2025 (Dr. Osmar Becker): Bedside ultrasound without pericardial effusion, when she was admitted here last time ultrasound without decreased EF but she likely has a component of diastolic heart failure she does have large left ventricle, she is tachypneic, tachycardic, states not anxious, reports not being on her medications since her discharge from the hospital she was only given apparently 1 month supply and since then went to see a lavatory attendant had what sounds like stress test and then was never continued in the medications and finally able to see a PCP in 5 days. We will obtain D-dimer as I am unable to PERC her out however I have low suspicion for PE but CTA last time noted some infiltrates and so possibly she has subclinical pneumonia we will start with a x-ray however, we discussed smoking for quite some time, I can refill her medications, I will give her something for cough, ECG without underlying dysrhythmia, frequent episodes of tachycardia while in ED noted on prior visits 4:54 PM 05/19/2025 (Dr. Osmar Becker): D-dimer negative, chest x-ray without consolidation or significant vascular congestion BNP was elevated, and she was re-evaluated, she is moving air well, please see my discharge instructions, because she is a smoker we will start Z-Min, steroids, she has follow up with the PCP and I will refill her medications including furosemide Differential Diagnosis Differential Diagnoses: The differential diagnosis associated with the presentation includes (CHF, COPD exacerbation, pneumonia, pneumothorax, ACS, PE,) Admission/Observation Consideration of admission/observation: Escalation of care including admission/observation considered Lab Data MDM Lab Attestation statement: I reviewed the patient's lab results. 05/19/25 13:52 05/19/25 13:52 Labs: Lab Results 05/19/25 05/19/25 05/19/25 Range/Units 13:52 14:23 16:04 WBC 11.5 H (4.8-10.8) X10*3/uL RBC 4.33 (4.20-5.50) X10*6/uL Hgb 13.7 (12.0-16.0) g/dl Hct 40.8 (37.0-47.0) % MCV 94.2 (80.0-98.0) fL MCH 31.6 (27.0-33.0) pg MCHC 33.6 (31.0-35.0) g/dl RDW 13.7 (11.0-16.0) % Plt Count 209 (160-400) X10*3/uL MPV 10.5 (9.4-12.3) fL Immature Gran % (Auto) 0.3 (0.0-0.4) % Neut % (Auto) 81.6 H (45-73) % Lymph % (Auto) 10.8 L (20-40) % [place]oca % (Auto) 6.4 (2-11) % Eos % (Auto) 0.4 (0-4) % Baso % (Auto) 0.5 (0-2) % Lymph # (Auto) 1.3 (1.2-4.9) X10*3/uL [place] # (Auto) 0.7 (0.1-1.2) X10*3/uL Eos # (Auto) 0.1 (0.0-0.4) X10*3/uL Baso # (Auto) 0.1 (0.0-0.2) X10*3/uL Abs Immat Gran (auto) 0.03 (0.00-0.03) X10*3/uL Absolute Neuts (auto) 9.4 H (2.0-8.3) x10*3/uL Absolute Nucleated RBC 0.000 (0.0-0.012) X10*3/uL Nucleated RBC % (auto) 0.0 (0.0-0.2) /100WBC D-Dimer High Sensitivty 216 NG/ML Sodium 142 (135-145) mmol/L Potassium 4.2 (3.3-5.1) mmol/L Chloride 111 H (96-108) mmol/L Carbon Dioxide 20 L (22-29) mmol/L Anion Gap 15 (12-20) BUN 10 (9-16) mg/dL Creatinine 0.66 (0.5-1.4) mg/dL Estim Creat Clear Calc 111.4 Estimated GFR > 60 Random Glucose 147 H (60-115) mg/dL Calcium 8.8 (8.4-10.2) mg/dL Magnesium 1.9 (1.6-2.6) mg/dL Total Bilirubin 0.9 (0.0-1.0) mg/dL Direct Bilirubin 0.2 (0.0-0.5) mg/dL AST 40 H (5-31) U/L ALT 70 H (0-31) U/L Alkaline Phosphatase 73 (39-117) U/L Troponin I High Sens 11.8 (<3.5-17.0) ng/L NT-Pro-B Natriuret Pep 999.1 H (<300) pg/mL Total Protein 7.0 (6.5-8.0) g/dL Albumin 4.5 (3.5-5.0) g/dL Lipase 48 (8-78) U/L Urine Color Yellow Urine Appearance Clear Urine pH 6.5 (5.0-9.0) Ur Specific [place] 1.020 (1.005-1.025) Urine Protein Trace (Neg-Trace) mg/dL Urine Glucose (UA) Negative (Negative) mg/dL Urine Ketones Negative (Negative) mg/dL Urine Blood Negative (Negative) Urine Nitrite Negative (Negative) Ur Leukocyte Esterase Trace H (Negative) Urine RBC 0-2 (0-2) /HPF Urine WBC 0-5 (0-5) /HPF Ur Squamous Epith Cells 6-10 (0-2) /HPF Urine Bacteria None Seen (None Seen) Hyaline Casts 0-2 (0-2) /LPF Urine Test NEGATIVE (NEGATIVE) COVID-19 (ART) Negative (Negative) COVID-19 Clin Com See Note Influenza Type A (SHEILA) Negative (Negative) Influenza Type B (SHELIA) Negative (Negative) Influenza A & B Note See Note Independent Interpretation I performed an independent interpretation of an: EKG (123 beats per minute sinus tachycardia, no dysrhythmia, no QTC prolongation, no evidence for WPW) and Plain X-Ray (No consolidations, no pneumothorax, no significant pulmonary edema noted, there maybe slight vascular congestion) External Record Review External record reviewed: Outpatient record Prescription Management I considered prescription management with: Antibiotic Chronic Conditions Patient?s care impacted by: Other (Asthma) Discharge Plan Discharge Clinical Impression: Asthma exacerbation, Post-tussive vomiting, Medication refill Additional Instructions: Continue antibiotics starting tomorrow, 1st dose in the emergency department, continue steroids starting tomorrow, 1st dose in the ER, guaifenesin has codeine which can sedate you but use it as needed for cough, do not mix with marijuana or alcohol, do not drive while taking this medication Continue with furosemide starting tomorrow, metoprolol and valsartan these have been sent to your pharmacy, please make sure to follow up with the primary care provider Your blood work has been reassuring, obtain special blood work to make sure on any blood loss in your lungs, it EKG, cardiac enzymes, chest x-ray and I also did a bedside ultrasound to look and make sure you do not have any fluid around your heart or in your lungs, those studies were reassuring as well. Please moderate tobacco use as we have discussed, any worsening issues concerns come back to the ER Prescriptions: New codeine-guaifenesin 7.5-225 mg/5 mL liquid 7.5 ml PO Q4-6H PRN (Reason: cough) 5 Days Qty: 473 0RF azithromycin 250 mg tablet 250 mg PO DAILY 4 Days Qty: 4 0RF Rx Instructions: once daily prednisone 20 mg tablet 40 mg PO DAILY 5 Days Qty: 10 0RF metoprolol tartrate 25 mg tablet 25 mg PO DAILY 14 Days Qty: 14 0RF furosemide [Lasix] 40 mg tablet 40 mg PO DAILY 14 Days Qty: 14 0RF valsartan 80 mg tablet 80 mg PO DAILY 14 Days Qty: 14 0RF No Action furosemide 40 mg tablet 40 mg PO DAILY valsartan 80 mg tablet 80 mg PO DAILY metoprolol tartrate 25 mg tablet 25 mg PO BID codeine-guaifenesin 10-100 mg/5 mL Liquid 5 ml PO Q6H PRN (Reason: Cough) Qty: 180 0RF prednisone 10 mg tablet See Rx Instructions .Route .COMPLEX Qty: 45 0RF Rx Instructions: 10 mg orally; 5 tabs p.o. daily x3 days; 4 tabs p.o. daily x3 days; 3 tabs daily x3 days; 2 tabs daily x3 days; 1 tab daily x3 days cefuroxime axetil 500 mg tablet 500 mg PO BID 7 Days Qty: 14 0RF Print Language: Algerian
[2025-05-19 13:59] LABS: MANUAL DIFF FLAG NO
[2025-05-19 14:04] LABS: Hematocrit 40.8 % (37.0-47.0); Hemoglobin 13.7 g/dl (12.0-16.0); Imm Gran Abs Auto 0.03 X10*3/uL (0.00-0.03); Imm Gran Pct Auto 0.3 % (0.0-0.4); Lymphocytes Absolute Auto 1.3 X10*3/uL (1.2-4.9); Mean Corpuscular HGB Conc 33.6 g/dl (31.0-35.0); Mean Corpuscular Hemoglobin 31.6 pg (27.0-33.0); Mean Corpuscular Volume 94.2 fL (80.0-98.0); NRBC Abs Auto 0.000 X10*3/uL (0.0-0.012); NRBC Pct Auto 0.0 /100WBC (0.0-0.2); Platelet Count 209 X10*3/uL (160-400); Red Blood Count 4.33 X10*6/uL (4.20-5.50); White Blood Count 11.5 X10*3/uL (4.8-10.8)
[2025-05-19 14:20] LABS: Alanine Aminotransferase 70 U/L (0-31); Albumin Level 4.5 g/dL (3.5-5.0); Alkaline Phosphatase 73 U/L (39-117); Anion Gap 15 (12-20); Aspartate Amino Transferase 40 U/L (5-31); Blood Urea Nitrogen 10 mg/dL (9-16); Calcium 8.8 mg/dL (8.4-10.2); Carbon Dioxide 20 mmol/L (22-29); Chloride 111 mmol/L (96-108); Creatinine Clr Calc Pharmacy 111.4; Estimated Glomerular Filt Rate > 60; Lipase 48 U/L (8-78); Magnesium 1.9 mg/dL (1.6-2.6); Potassium 4.2 mmol/L (3.3-5.1); Sodium 142 mmol/L (135-145); Total Protein 7.0 g/dL (6.5-8.0)
[2025-05-19 14:26] LABS: Troponin-I High Sensitivity 11.8 ng/L (<3.5-17.0)
[2025-05-19 14:38] LABS: IDNOW Serial# 58CA691E; Influenza B2 Negative (Negative)
[2025-05-19 14:39] LABS: COVID-19 Test Negative (Negative); IDNOW Serial# 55D5AD1C
[2025-05-19 14:42] LABS: Appearance Urine Clear; Glucose Urine UA Negative (Negative); PH 6.5 (5.0-9.0); Specific Gravity - Urine 1.020 (1.005-1.025); UMIC TRIGGER UACC YES; UPreg QC Valid YES
[2025-05-19] MEDS: guaiFEN/Codeine SF 200/20/10ML 10 ML LIQUID PO (15:54)
--- OUTSIDE RECORDS SUMMARY | 2025-05-19 15:55 | XMS_ITS | Clinical Summary ---
Author Organization [address] Address [address] [place] [phone] Phone Care Team Providers Care Non Destructive Evaluation Technician Name Role Phone Mya Palm Primary Care Provider [phone] Allergies Active Allergy Reactions Criticality Noted Date [...] 1 (one) time each day. 5 Active budesonide-form oteroL (SYMBICORT) 160-4.5 mcg/actuation inhaler Inhale 2 puffs [...] (one) time each day. 30 each 5 Active valsartan (DIOVAN) 80 mg tablet Take 1 tablet (80 mg total) by mouth 1 (one) time each day. 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) ([facility] V24, [facility] V28) 12/24/2024 HFrEF (heart failure with re duced ejection fraction) ([facility] V24, [facility] V28) 12/24/2024 Anxiety and depression 09/19/2024 Asthma, not well controlled, mild intermittent, with acute exacerbation 09/19/2024 Immunizations Immunization Administration Dates Next Due HPV, Quadrivalent 11/12/2015,08/15/2015,05/06/20 15 Surgical History Surgery Date Site/Laterality Comments OTHER SURGICAL HISTORY 2007 PROCEDURE: ID COLPOSCOPY CERVIX UPPR/ADJCNT VAGINA W/CERVIX BX Medical [...] Safety Answer Date Record ed Physical Abuse Unrecognized value 12/25/2024 Verbal Abuse Unrecognized value 12/25/2024 Comments Unknown Sex and Gender Information [...] 11:26 AM EDT Respiratory Rate 17 12/26/2024 11:26 AM EDT Oxygen Saturation 99% 12/26/2024 11:26 AM EDT Inhaled Oxygen Concentration - - Weight 78.5 kg (173 lb) 02/11/2025 12:15 PM EDT Height 154.9 cm (5' 1 ) 02/11/2025 12:15 PM EDT Body Mass Index 32.69 02/11/2025 12:15 PM EDT Plan of Treatment Health Maintenance Due Date Last Done Comments Hepatitis B Vaccines (1 of 3 - 19+ 3-dose series) 2008 Pneumococcal Vaccine: Pediatrics (0 to 5 Years) and At-Risk Patients (6 to 49 Years) (1 of 2 - PCV) 2008 Cervical Cancer Screening: Pap Smear 06/04/2019 06/04/2016, 06/04/2016 Social Influencers of Health Screening 06/20/2022 Depression Screening 07/18/2024 COVID-19 Vaccine ( season) 2025 09/07/2021, 08/17/2021 Influenza Vaccine (#1) 2025 4, 08/31/2021, 05/13/2020, Additional history exists Hypertension/CHF/CAD Annual BMP Blood Test 12/26/2025 12/26/2024, 12/25/2024, 12/24/2024, Additional history exists DTaP,Tdap,and Td Vaccines (3 - Td or Tdap) 10/15/2027 10/14/2017, 01/11/2012 Cholesterol Screening (Lipid Panel) 09/12/2029 09/12/2024, 09/12/2024, 07/20/2016 RSV Immunization Adult Patients (1 - 1-dose 75+ series) 2064 HPV Vaccines Completed 11/12/2015, 07/19, 05/06/2015 HIV [...] Procedure Name Priority Date/Time Associated Diagnosis Comments BASIC METABOLIC PANEL Routine 12/26/2024 6:04 AM EDT HEPATITIS C SCREENING Routine 09/14/2016 HIV SCREENING Routine 09/14/2016 LIPID PANEL Routine 07/20/2016 HPV Routine 06/04/2016 from Last 3 Months or Most Recently Relevant to Health Maintenance Results * Basic metabolic panel (12/26/2024 6:04 AM EDT) Sodium 137 133 - 145 mmol/L LAB CHEMISTRY METHOD 12/26/2024 7:33 AM EDT [facility] Potassium 4.0 3.5 - 5.5 mmol/L LAB CHEMISTRY METHOD 12/26/2024 7:33 AM EDT [facility] Chloride 109 96 - 110 mmol/L LAB CHEMISTRY METHOD 12/26/2024 7:33 AM EDT [facility] CO2 23 21 - 32 mmol/L LAB CHEMISTRY METHOD 12/26/2024 7:[facility] Anion Gap 5 3 - 11 LAB CHEMISTRY METHOD 12/26/2024 7:33 AM [facility] Glucose 93 70 - 100 mg/dL LAB CHEMISTRY METHOD 12/26/2024 7:33 AM [facility] BUN 19 5 - 25 mg/dL LAB CHEMISTRY METHOD 12/26/2024 7:33 AM [facility] Creatinine 0.74 0.50 - 1.10 mg/dL LAB CHEMISTRY METHOD 12/26/2024 7:33 AM [facility] eGFR 108 >=60 mL/min/1. 73m2 LAB CHEMISTRY METHOD 12/26/2024 7:33 AM [facility] Comment:Calculation based on the Chronic Kidney Disease Epidemiology Collaboration (CKD-EPI) equation refit without adjustment for race. BUN/Creatinine Ratio 25.7 LAB CHEMISTRY METHOD 12/26/2024 7:33 AM [facility] Calcium 8.7 8.5 - 10.5 mg/dL LAB CHEMISTRY METHOD 12/26/2024 7:33 AM [facility] Blood Venous blood specimen / Unknown Venipuncture / Unknown 12/26/2024 6:04 AM EDT 12/26/2024 7:00 AM EDT Ruba DUNAWAY LAB BLOOD ORDERABLES Final Result [facility] [address] [place] [address], * HIV Screening (09/14/2016) HIV Screening abstracted Historical Provider HEALTH MAINTENANCE Final Result * Hepatitis C Screening (09/14/2016) Hepatitis C Screening abstracted us Historical Provider HEALTH MAINTENANCE Final Result * (ABNORMAL) Lipid panel (07/20/2016) Pathologist [facility] LDL/HDL Ratio 3 0 - 4 Triglycerides 197(A) 0 - 150 mg/dL Cholesterol 147 0 - 200 mg/dL HDL 50 >=40 mg/dL LDL Cholesterol 58 0 - 100 mg/dL Blood Venous blood specimen / Unknown Historical Provider LAB BLOOD ORDERABLES Raquel l Result * Cervical Cancer Screening: HPV (06/04/2016) Pathologist [facility] Cervical Cancer Screening: HPV no interpretation , abstracted Historical Provider HEALTH MAINTENANCE Final Result from Last [...] currently active code status orders. Care Teams Non Destructive Evaluation Technician Relationship Specialty Start Date End Date Mya Palm PA [address] [place] [id number] PCP - General 10/12/24
--- OUTSIDE RECORDS SUMMARY | 2025-05-19 15:55 | XMS_ITS ---
Author Organization [facility] Address [address] [place] [address] Care Team Providers Care Wireless Sales Associate Name Role Phone Mya Palm PA-C Primary Care Provider [phone] [id number] Program Status:Enrolled (Active) Start date:12/23/2023 Enrollment date:12/23/2023 Case Team Name Relationship Phone Mya Miranda LPN(Responsible Staff) [phone] Continued Care and Services Coordination
--- OUTSIDE RECORDS SUMMARY | 2025-05-19 15:55 | XMS_ITS | Clinical Summary ---
Author Organization [facility] Address [address] [place] [address] Care Team Providers Care Hand Weaver Name Role Phone Mya Palm PA-C Primary Care Provider [phone] Source Comments PLEASE NOTE, if this patient is a minor, it may be UNLAWFUL to discuss sensitive information that is contained in these records (such as FAMILY PLANNING, MENTAL HEALTH or SUBSTANCE ABUSE) with the minor patient's parent or other person without the patient's specific authorization.[facility] Allergies Active Allergy Reactions Criticality Noted Date Comments Ciprofloxacin Hives High 12/23/2023 Latex Anaphylaxis High 12/23/2023 Nitrofurantoin Monohyd/M-Cryst Hives Medium 12/22 Sulfamethoxazole-Trimethoprim Anaphylaxis,Swelling High 04/05/2012 Medications ibuprofen (ADVIL,MOTRIN) 800 mg tabletIndications: Tooth pain Take 1 Tab by mouth 3 (three) times daily as needed for pain 30 Tab 8 Active acetaminophen (TYLENOL) 500 mg tabletIndications: Chronic periodontitis Take 1 Tablet by mouth every 6 (six) hours as needed for pain 20 Tablet 2 Active ibuprofen 600 mg tabletIndications: Chronic periodontitis Take 1 Tablet by mouth 4 (four) times daily as needed for pain 20 Tablet 2 Active clindamycin HCL (CLEOCIN) 300 mg capsuleIndications :Chronic periodontitis Take 1 Capsule by mouth 3 (three) times daily 21 Capsule 2 Active albuterol-budesoni de 90-80 mcg/actuation HFAA Inhale into the lungs 4 Active mirtazapine 7.5 mg tab 7.5 mg 3 Active budesonide-formote roL (SYMBICORT) 160-4.5 mcg/actuation inhalerIndications :Asthma, unspecified asthma severity, unspecified whether complicated, unspecified whether persistent,SOB (shortness of breath),Acute cough,Exacerbation of persistent asthma, unspecified asthma severity Inhale 2 Puffs into the lungs 2 (two) times daily 10.2 g 2 5 Active albuterol HFA 90 mcg/actuation inhalerIndications :Asthma, unspecified asthma severity, unspecified whether complicated, unspecified whether persistent,SOB (shortness of breath),Acute cough,Exacerbation of persistent asthma, unspecified asthma severity Inhale 2 Puffs into the lungs every 4 to 6 (four to six) hours as needed for shortness of breath or wheezing (cough/sob) 18 g 5 Active benzonatate (TESSALON) 100 mg capsuleIndications :Acute cough,Exacerbation of persistent asthma, unspecified asthma severity Take 1 Capsule by mouth 3 (three) times daily as needed for cough 30 Capsule 5 Active metoprolol tartrate (LOPRESSOR) 25 mg tabletIndications: Dilated cardiomyopathy,Hyp ertension, unspecified type Take 1 Tablet by mouth twice a day. 60 Tablet 12 5 01/22/20 26 Active furosemide (LASIX) 40 mg tabletIndications: Dilated cardiomyopathy Take 1 Tablet by mouth daily for 30 days. 30 Tablet 5 Active valsartan (DIOVAN) 80 mg tabletIndications: Dilated cardiomyopathy,Hyp ertension, unspecified type Take 1 Tablet by mouth daily. 30 Tablet 11 5 12/29/19 26 Active Active Problems Problem Noted Date Diagnosed Date Dilated cardiomyopathy 12/28/2024 Systolic dysfunction 12/04/2024 Overview (12/04/2024): 12/02/2024 - Transthoracic Echocardiography Report (TTE) - Summary: The left ventricle is dilated. The left ventricular wall thickness is mildly increased. The LV systolic function is severely reduced. There is severe global hypokinesis with regional variation. The left ventricular ejection fraction is 25-30%. Unable to assess diastolic function due to atrial fibrillation. The right ventricle is normal in size and function. The pulmonary artery systolic pressure estimation is 30-35 mmHg. The left atrium is moderately dilated. There is apical tethering of both leaflets of the mitral valve. There is moderate to severe functional mitral regurgitation. Comparison No prior study available for comparison. Bipolar disorder 12/23/2023 Hypertension 12/22/2016 Anxiety and depression 12/23/2003 Overview (12/23/2023): See therapist in [facility] Encounters Date Type Department Care Team Description 05/06/2025 Interim Notes [address] [phone] Bertha Juan RN 05/03/2025 Interim Notes [address] [phone] [place]el [place] from Last 3 Months Social History Tobacco Use Types Packs/Day Years Used Date Smoking Tobacco: Every Day Tobacco Cessation:Ready to Q uit: Not Asked; Counseling Given: Not Answered Alcohol Use Standard Drinks/Week Comments Not Currently 0 (1 standard drink = 0.6 oz pur e alcohol) Social Connections Answer Date Recorded Connectedness 0 04/05/2024 Financial Resource Strain Answer Date R ecorded Financial Resource Strain 0 2021 Stress Answer Date Recorded Stress 0 11/24/2021 Physical Activity Answer Date Recorded Physical Activity 0 11/24/2021 Food Insecurity Answer Date Recorded Food 0 04/12/2024 Transportation Needs Answer Date Record ed Transportation 0 11/24/2021 Housing Stability Answer Date Recorded Housing 0 11/24/2021 Safety and Environment Answer Date Sean rded Safety 0 11/24/2021 Utilities Answer Date Recorded Utilities 0 11/24/2021 Employment Answer Date Recorded Stress 0 04/05/2024 Comments No Sex and Gender Information Value Date Recorded Sex Assigned at Female 12/29/2023 5:37 AM PDT Legal Sex Female 10:14 AM PDT Gender Identity Female 12/29/2023 5:37 AM PDT Sexual Orientation Straight 02/22/2024 12 :57 PM PDT Last Filed Vital Signs Vital Sign Reading Time Taken Comments Blood Pressure 122/68 12/28/2024 1:41 PM EDT Pulse 93 12/28/2024 1:41 PM EDT Temperature 36.8 C (98.2 F) 12/28/2024 1:41 PM EDT Respiratory Rate 17 12/28/2024 1:41 PM EDT Oxygen Saturation 99% 12/28/2024 1:41 PM EDT Inhaled Oxygen Concentration - - Weight 77.1 kg (170 lb) 12/28/2024 1:41 PM EDT Height 154.9 cm (5' 1 ) 12/28/2024 1:41 PM EDT Body Mass Index 32.12 12/28/2024 1:41 PM EDT Plan of Treatment Health Maintenance Due Date Last Done Comments Anxiety Screening 1989 Dental Prophy 1989 Depression Monitoring 1989 HPV Screening (self-collect) 1989 HPV Screening 1989 Hepatitis C Screening 1989 Pap + HPV 1989 Tobacco Cessation Counseling (#1) 1989 HIV Screening 2004 Relationship Safety Screening/Counseling 2004 Imm-Hepatitis B (1 of 3 - 19 + 3-dose series) 2008 Imm-Pneumococcal (1 of 2 - PCV) 2008 Cervical Cancer Screening 2010 Pap Smear 2010 Dental BW 11/27/2022 11/25/2021 Dental Examination 11/27/2022 11/25/2021, 11/25/2021 Alcohol and Drug Screen 07/18/2024 [id number] ( - season) 2025 022, 08/17/2021 Imm-Influenza (#1) 2025 09/14/2023, 0 08/31/2021, 05/13/2020, Additional history exists Dental FMX/Pano 11/27/2026 11/25/2021 Lipid Screening 09/12/2027 09/12/2024, 07/20/2016 Imm-DTaP/Tdap/Td (3 - Td or Tdap) 10/15/2027 018, 01/11/2012 Diabetes Screening 12/27/2027 12/26/2024, 0 12/25/2024, 12/24/2024, Additional history exists Imm-RSV (adult) (1 - 1-dose 75+ series) 2064 Imm-HPV Completed 11/12/2015, 07/19, 05/06/2015 Cervical Ablation/Cold-Knife Conization Discontinued Cervical Cryotherapy Discontinued Colposcopy Discontinued Excision/Leep Discontinued HPV Genotyping Discontinued Vaginal Pap Discontinued Vulvoscopy Discontinued Goals Goal Patient Goal Type Associated Problems Recent Progress Patient-Stated? Author Blood Pressure < 130/80 Blood Pressure 122/68( 025 1:41 PM EDT) Mya Smith LPN Hypertension: Decrease sodium intake General No Mya Miranda LPN Procedures Procedure Name Priority Date/Time Associated Diagnosis Comments COMPREHENSIVE METABOLIC PANEL Routine 09/12/2024 12:59 PM EST Essential hypertension LIPID PANEL Routine 09/12/2024 12:59 PM EST Essential hypertension Full INTRAORAL - COMP SERIES OF RADIOGRAPHIC IMAGES Routine 11/25/2021 10:20 AM EDT [facility] Full COMP ORAL EVALUATION - NEW/ESTABLISHED PATIENT Routine 11/25/2021 10:20 AM EDT [facility] from Last 3 Months or Most Recently Relevant to Health Maintenance Results * (ABNORMAL) LIPID PANEL (09/12/2024 12:59 PM EST) CHOLESTEROL, TOTAL 160 <200 mg/dL [facility] HDL CHOLESTEROL 44(L) > OR = 50 mg/dL [facility] TRIGLYCERIDES 157(H) <150 mg/dL [facility] LDL-CHOLESTEROL 91 99 mg/dL (calc) [facility] Comment: Reference range: <100 Desirable range <100 mg/dL for primary prevention; <70 mg/dL for patients with CHD or diabetic patients with > or = 2 CHD risk factors. LDL-C is now calculated using the Bossman calculation, which is a validated novel method providing better accuracy than the Friedewald equation in the estimation of LDL-C. Mohit CARY et al. SHANDA. 2013;310(19): 7803-7520 (http://education.[employer]/faq/VBG551) CHOL/HDLC RATIO 3.6 <5.0 (calc) [employer] NON-HDL CHOLESTEROL 116 <130 mg/dL (calc) [employer] Comment: For patients with diabetes plus 1 major ASCVD risk factor, treating to a non-HDL-C goal of <100 mg/dL (LDL-C of <70 mg/dL) is considered a therapeutic option. Blood Blood / Unknown 09/12/2024 1 2:59 PM EST 09/12/2024 12:59 PM EST Mya Palm PA-C LAB - BLOOD DRAW Final Resu lt [facility] [address] [address], [facility] [address] [phone] * (ABNORMAL) COMPREHENSIVE METABOLIC PANEL (09/12/2024 12:59 PM EST) GLUCOSE 156(H) 65 - 99 mg/dL [facility] Comment: Fasting reference interval For someone without known diabetes, a glucose value >125 mg/dL indicates that they may have diabetes and this should be confirmed with a follow-up test. UREA NITROGEN (BUN) 14 7 - 25 mg/dL [facility] CREATININE (blood) 0.88 0.50 - 0.97 mg/dL [facility] EGFR 88 > OR = 60 mL/min/1. 73m2 [employer] BUN/CREATININE RATIO SEE NOTE: [address] [facility] Comment: Not Reported: BUN and Creatinine are within reference range. SODIUM 141 135 - 146 mmol/L [facility] POTASSIUM 3.9 3.5 - 5.3 mmol/L [employer] CHLORIDE 109 98 - 110 mmol/L [employer] CARBON DIOXIDE 22 20 - 32 mmol/L [facility] CALCIUM 8.7 8.6 - 10.2 mg/dL [employer] PROTEIN, TOTAL 6.2 6.1 - 8.1 g/dL [employer] ALBUMIN 3.9 3.6 - 5.1 g/dL [employer] GLOBULIN 2.3 1.9 - 3.7 g/dL (calc) [facility] ALBUMIN/GLOBULI N RATIO 1.7 1.0 - 2.5 (calc) [employer] BILIRUBIN, TOTAL 0.3 0.2 - 1.2 mg/dL [facility] ALKALINE PHOSPHATASE 55 31 - 125 U/L [facility] AST 15 10 - 30 U/L [facility] ALT 26 6 - 29 U/L [facility] Blood Blood / Unknown 09/12/2024 1 2:59 PM EST 09/12/2024 12:59 PM EST Mya Palm PA-C LAB - BLOOD DRAW Final Resu lt [facility] [address] [address], [employer] [facility] [address] [place] [address] from Last 3 Months or Most Recently Relevant to Health Maintenance Insurance [facility] [address] [employer] Care Teams Hand Weaver Relationship Specialty Start Date End Date Mya Palm PA-C [facility] [place] [address] PCP - General Primary Care 12/15/23
[2025-05-19] MEDS: levalbuterol HCL 2.5 MG, Ipratropium Bromide 0.5 MG INHALE (16:11)
[2025-05-19 16:13] VITALS: PULSE 114; RESP 21; O2SAT 98
[2025-05-19 16:15] LABS: NT Pro B Type Natriuretic Pept 999.1 pg/mL (<300)
[2025-05-19 16:23] LABS: D Dimer High Sensitivity 216 NG/ML
[2025-05-19 17:16] VITALS: BP 154/100
[2025-05-19] MEDS: Albuterol Sulfate 90 MCG 8 GM INHALER 2 PUFF INHALE (17:16)
[2025-05-19 17:19] VITALS: BP 154/100; PULSE 88; RESP 16; TEMP -17.7; TEMP 0; O2SAT 95
== END 2025-05-19 17:20 | disposition home or self-care (01) ==
PROVIDERS: Physician Assistant; Emergency Provider Emergency Medicine
DX: J45.901 Unspecified asthma with (acute) exacerbation (principal); R07.89 Other chest pain; R05.9 Cough, unspecified; R06.02 Shortness of breath; R11.2 Nausea with vomiting, unspecified; Z76.0 Encounter for issue of repeat prescription; Z11.52 Encounter for screening for COVID-19; Z79.899 Other long term (current) drug therapy
CPT/HCPCS: 71046; 80048; 80076; 81001; 81025; 83690; 83735; 83880; 84484; 85025; 85379; 87502; 87635; 93005; 94640; 99284

== ENCOUNTER → 2025-05-19 13:18 | Outpatient (BNV) | payer MEDICAID, SELFPAY | PROVIDERS: Emergency Provider Emergency Medicine; Visit Provider Internal Medicine Cardiovascular Disease | DX: R00.0 Tachycardia, unspecified (principal) | CPT/HCPCS: 93010 ==

== ENCOUNTER → 2025-05-19 15:47 | Outpatient (BNV) | payer MEDICAID, SELFPAY | PROVIDERS: Emergency Provider Emergency Medicine; Visit Provider Radiology Diagnostic Radiology | DX: J18.9 Pneumonia, unspecified organism (principal) | CPT/HCPCS: 71046 ==

== ENCOUNTER 2025-07-10 02:18 | Emergency (ER) | payer MEDICAID, SELFPAY ==
--- NOTE | 2025-07-10 | ECG_ITS ---
Test Reason : UPPER RESP Blood Pressure : */* mmHG Vent. Rate : 96 BPM Atrial Rate : 96 BPM P-R Int : 168 ms QRS Dur : 88 ms QT Int : 386 ms P-R-T Axes : 7 71 37 degrees QTcB Int : 487 ms Normal sinus rhythm Possible Anterior infarct , age undetermined Abnormal ECG When compared with ECG of 19-May-2025 13:26, No significant change was found Referred By: Kelsey Danielson Electronically Signed By: KARI DINERO MD
--- NOTE | ~2025-07-10 | XR_ITS ---
CLINICAL HISTORY: sob 1 view chest x-ray Comparison: CR - XR CHEST 2V - 05/19/25 16:37 EST Findings: Cardiomegaly. Clear lungs. Osseous structures are unremarkable. IMPRESSION: No acute findings. This document has been electronically signed by: Twan Hooks MD on 07/10/2025 04:18:42
[2025-07-10 02:26] VITALS: BP 129/88; PULSE 96; RESP 18; TEMP 36.4; O2SAT 98; BMI 35.1
--- NOTE | 2025-07-10 02:33 | ED.URI ---
HPI - URI/Sore Throat General Chief Complaint: Upper Respiratory Symptoms Stated Complaint: COUGH,L CP X2H,SICK HOUSEHOLD PER EMS Time Seen by Provider: 07/10/25 02:26 Source: patient Mode of arrival: ambulatory Limitations: no limitations History of Present Illness ED Provider: Dr. Kelsey Danielson HPI Narrative: Patient comes to the emergency room complaining of 2 weeks of cough. Patient states that she has history of asthma has been using prednisone and albuterol as prescribed. At this time, pt denies shortnes of breath or wheezing, denies sore throat. Patient reports that multiple family members have URI symptoms. The patient denies any vomiting or diarrhea, denies fever or chills, denies chest pain or palpitations. Patient reported to triage/EMS that she was complaining of dizziness. When I spoke with the patient, she describes dizziness sinus generalized malaise, denies room spinning, denies near-syncope episodes Related Data Home Medications ?Medication ?Instructions ?Recorded ?Confirmed furosemide 40 mg tablet 40 mg PO DAILY 01/14/25 01/14/25 metoprolol tartrate 25 mg tablet 25 mg PO BID 01/14/25 01/14/25 valsartan 80 mg tablet 80 mg PO DAILY 01/14/25 01/14/25 Previous Rx's ?Medication ?Instructions ?Recorded cefuroxime axetil 500 mg tablet 500 mg PO BID 7 days #14 tabs 01/17/25 codeine 10 mg-guaifenesin 100 mg/5 5 ml PO Q6H PRN Cough #180 mL 01/17/25 mL oral liquid prednisone 10 mg tablet See Rx Instructions .Route 01/17/25 .COMPLEX #45 tabs azithromycin 250 mg tablet 250 mg PO DAILY 4 days #4 tabs 05/19/25 codeine 7.5 mg-guaifenesin 225 7.5 ml PO Q4-6H PRN cough 5 days 05/19/25 mg/5 mL oral liquid #473 mL furosemide 40 mg tablet (Lasix) 40 mg PO DAILY 14 days #14 tabs 05/19/25 metoprolol tartrate 25 mg tablet 25 mg PO DAILY 14 days #14 tabs 05/19/25 prednisone 20 mg tablet 40 mg (2 x 20 mg) PO DAILY 5 days 05/19/25 #10 tabs valsartan 80 mg tablet 80 mg PO DAILY 14 days #14 tabs 05/19/25 benzonatate 100 mg capsule 100 mg PO TID PRN cough #12 caps 07/10/25 ondansetron 4 mg disintegrating 4 mg PO Q6H PRN nausea and 07/10/25 tablet vomiting #10 tabs Allergies Allergy/AdvReac Type Severity Reaction Status Date / Time ciprofloxacin (From CIPRO) Allergy Unknown SOB HIVES Verified 07/10/25 02:29 latex (LATEX) Allergy Unknown HIVES Verified 07/10/25 02:29 levofloxacin (From LEVAQUIN) Allergy Unknown SOB,HIVES Verified 07/10/25 02:29 sulfamethoxazole (From Allergy Unknown SOB HIVES Verified 07/10/25 02:29 BACTRIM) trimethoprim (From BACTRIM) Allergy Unknown SOB HIVES Verified 07/10/25 02:29 Review of Systems Review of Systems: Constitutional : No Weight loss, No Fever, No Chills, No Night Sweats, No Fatigue, No Malaise ENT/Mouth : No Hearing loss, No Ear Pain, No Nasal Congestion, No Sinus Pain, No Hoarseness, No sore throat, No Rhinorrhea, No Swallowing Difficulty Eyes: No Eye Pain, No Swelling, No Redness, No Foreign Body, No Discharge, No Vision Changes Cardiovascular : No Chest Pain, No SOB, No Dyspnea on Exertion, No Orthopnea, No Edema, No Palpitations Respiratory : Complaining of cough, intermittent wheezing but not at this time Gastrointestinal : No Nausea, No Vomiting, No Diarrhea, No Constipation, No abdominal Pain, No Hematochezia, No Melena Genitourinary : no irregular bleeding, No Dysuria, No Urinary Frequency, No Hematuria, No Urinary Incontinence, No Urgency, No Flank Pain, No Urinary Flow Changes, No Hesitancy Musculoskeletal : No joint pain, No Myalgias, No Joint Swelling Skin : No Skin Lesions, No rash Neuro : No Weakness, No Numbness, No Paresthesias, No Loss of Consciousness, No Dizziness, No Headache Psych : No Anxiety/Panic, No Depression, No SI/HI/AH/VH, No Social Issues, Heme/Lymph: No Bruising, No Bleeding,No Lymphadenopathy Endocrine : No Polyuria, No Polydipsia, No Temperature Intolerance PMFSH Past Medical History Medical History Asthma Nonischemic cardiomyopathy Asthma Social History Social History Household Members: Family Housing: Apartment Do you presently have visiting nurse or other home services: No Patient Tobacco Use Status: Current everyday Tobacco user Tobacco use type: Cigarette Cigarette Packs Per Day: 0.25 Cigarettes Per Day: 5.0 Smoked in Last 30 Days: Yes e-Cigarette/Vaping Use: Never Used Second Hand Smoke Exposure: Yes Use of substances other than those prescribed or required for medical reasons: No Advance Directives: No Advance Directives Information Provided: Yes Do you have a plan to hurt others: No Plan Patient : No service: No Physical Exam Exam: Exam: Appearance: Alert. Oriented X3. No acute distress. Eyes: Pupils equal, round and reactive to light. ENT: Pharynx normal. Neck: Normal inspection. Neck supple. No lymph nodes noted. No crepitus CVS: Normal heart rate and rhythm. Pulses normal. Normal S1 and S2 Respiratory: No respiratory distress. Breath sounds normal. No Wheezing. No rales Abdomen: Soft and nontender. No rigidity. No distention. Skin: Skin warm and dry. Normal skin color. Normal skin turgor. Extremities: No lower extremity edema. No Lacerations. No Rash Neuro: Oriented X 3. No motor deficit. No sensory deficit. Moving all extremities. No slurred speech. CN 2 through 12 grossly intact Psych: calm, cooperative, normal affect Vital Signs: Vital Signs: Last Vital Signs Temp 97.5 F 07/10/25 02:26 Pulse 96 07/10/25 02:26 Resp 18 07/10/25 02:26 BP 129/88 07/10/25 02:26 Pulse Ox 98 07/10/25 02:26 O2 Del Method Room Air 07/10/25 02:26 BMI result Body Mass Index 35.1 Course Course Course Narrative: -all of patient's vitals within normal limits, no fever, oxygen saturation 98% on room air On physical exam, patient's lungs are completely clear, good air movement, no wheezing Patient's labs pending Medications Administered Discontinued Medications Generic Name Dose Route Start Last Admin Trade Name Freq PRN Reason Stop Dose Admin Prochlorperazine Edisylate 5 mg 07/10/25 04:14 07/10/25 04:34 Prochlorperazine Edisylate 10 Mg/2 Ml Vial IM 07/10/25 04:15 5 mg ONCE ONE Administration Medical Decision Making Medical Decision Making [facility] Narrative: My interpretation of EKG: Normal sinus rhythm, heart rate 96, no ST segment depression or elevation, no T-wave inversion, QTC 487 My interpretation of labs: Patient tested negative for COVID, influenza a, influenza B My interpretation of chest x-ray, I do not see any abuse opacity, infiltrate. Radiology report does not show any acute abnormality Patient's vitals remained stable, no fever, no tachycardic, oxygen saturation steady 98% on room air. Patient likely has a viral URI, causing bronchitis. Discussed with the patient that the cough may last up to 6-8 weeks Wells criteria score for PE is 0 At the time of discharge, I was asked by the patient's nurse to return to the patient's room. Patient states that she is having bilateral ?jugular restriction Patient denied neck pain or neck stiffness I asked the patient to try to explain to me what she is feeling. Patient states that she can not explain it: she denies sore thorat, denies chest tightness, denies rib pain, denies chest pain with inspiration or expiration, denies throat tightness, denies trouble swallowing, denies neck pain, denies neck stiffness, denies chest pain, denies palpitations. I tried to explain to the patient how esophageal spasm feel, denies that. Patient also denies any numbness or tingling, denies syncope or near syncopal episodes. I discussed multiple symptoms with the patient, patient states that she just can not explain. I tried to encourage the patient to explain what she is feeling so we can help her and get a better idea of what is bothering her. However, patient declined to talk about this any further and says that she will follow up with her primary care physician. Patient did not have any palpable lymph nodes Pain medication that muscle relaxants were offered to the patient, she declined Patient's airway is completely patent, patient is well-appearing, talking in full sentences, neck normal range of motion with flexion and extension, no stiffness noted, no muscle spasms noted Patient declined any other medication. Patient states that she has plenty of prednisone and albuterol at home. I discussed with the patient that at this time, antibiotics are not indicated Differential Diagnosis Differential Diagnoses: The differential diagnosis associated with the presentation includes (Bronchitis, viral URI, RSV, COVID, influenza) Lab Data MDM Lab Attestation statement: I reviewed the patient's lab results. Labs: Lab Results 07/10/25 Range/Units 02:31 COVID-19 (ART) Negative (Negative) COVID-19 Clin Com See Note Influenza Type A (SHEILA) Negative (Negative) Influenza Type B (SHEILA) Negative (Negative) Influenza A & B Note See Note Independent Interpretation I performed an independent interpretation of an: Plain X-Ray Discharge Plan Discharge Clinical Impression: Bronchitis Patient Disposition: Home, Self-Care Instructions: Acute Bronchitis (ED), Viral Syndrome (ED) Additional Instructions: Please follow-up with your primary care physician tomorrow. If you have any worsening or new symptoms, please return to the emergency room or call 911 Prescriptions: New ondansetron 4 mg tablet,disintegrating 4 mg PO Q6H PRN (Reason: nausea and vomiting) Qty: 10 0RF benzonatate 100 mg capsule 100 mg PO TID PRN (Reason: cough) Qty: 12 0RF No Action codeine-guaifenesin 7.5-225 mg/5 mL liquid 7.5 ml PO Q4-6H PRN (Reason: cough) 5 Days Qty: 473 0RF azithromycin 250 mg tablet 250 mg PO DAILY 4 Days Qty: 4 0RF Rx Instructions: once daily prednisone 20 mg tablet 40 mg PO DAILY 5 Days Qty: 10 0RF metoprolol tartrate 25 mg tablet 25 mg PO DAILY 14 Days Qty: 14 0RF furosemide [Lasix] 40 mg tablet 40 mg PO DAILY 14 Days Qty: 14 0RF valsartan 80 mg tablet 80 mg PO DAILY 14 Days Qty: 14 0RF furosemide 40 mg tablet 40 mg PO DAILY valsartan 80 mg tablet 80 mg PO DAILY metoprolol tartrate 25 mg tablet 25 mg PO BID codeine-guaifenesin 10-100 mg/5 mL Liquid 5 ml PO Q6H PRN (Reason: Cough) Qty: 180 0RF prednisone 10 mg tablet See Rx Instructions .Route .COMPLEX Qty: 45 0RF Rx Instructions: 10 mg orally; 5 tabs p.o. daily x3 days; 4 tabs p.o. daily x3 days; 3 tabs daily x3 days; 2 tabs daily x3 days; 1 tab daily x3 days cefuroxime axetil 500 mg tablet 500 mg PO BID 7 Days Qty: 14 0RF Interventions: ED Discharge Assessment Last Done: 07/10/25 04:40 Print Language: Turkish
--- OUTSIDE RECORDS SUMMARY | 2025-07-10 02:52 | XMS_ITS | Clinical Summary ---
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 heart failure) 12/24/2024 HFrEF (heart failure with reduced ejection fract ion) 12/24/2024 Anxiety and depression 09/19/2024 Asthma, not well controlled, mild intermittent, with acute exacerbation 09/19/2024 Encounters Date Type Department Care Team Description 06/21/2025 Telephone [facility] - [facility] [address] [facility] [address] [place] [phone] Ambar Fernandez NP 06/05/2025 Telephone [facility] - [facility] [address] [facility] [address] [place] [phone] Mya Palm PA from Last 3 Months Immunizations Immunization Administration Dates Next Due HPV, Quadrivalent 11/12/2015,08/15/2015,05/06/20 15 Surgical History Surgery Date Site/Laterality Comments OTHER SURGICAL HISTORY 2007 PROCEDURE: ME COLPOSCOPY CERVIX UPPR/ADJCNT VAGINA W/CERVIX BX Medical [...] on file Sexual Orientation Not on file Last Filed Vital Signs Vital Sign Reading [...] 2008 Cervical Cancer Screening: Pap Smear 06/04/2019 06/04/2016 Social Influencers of Health Screening 06/20/2022 Depression Screening 07/18/2024 COVID-19 Vaccine ( - season) 2025 09/07/2021, 08/17/2021 Influenza Vaccine (#1) 2025 , 08/31/2021, 05/13/2020, Additional history exists Hypertension/CHF/CAD Annual [...] SCREENING Routine 09/14/2016 LIPID PANEL Routine 07/20/2016 PAP SMEAR Routine 06/04/2016 from Last 3 Months or Most Recently Relevant to Health Maintenance Results * Basic metabolic panel (12/26/2024 6:04 AM EDT) Sodium 137 133 - 145 mmol/L LAB CHEMISTRY METHOD 12/26/2024 7:33 AM EDT [facility] Potassium 4.0 3.5 - 5.5 mmol/L LAB CHEMISTRY METHOD 12/26/2024 7:33 AM EDT [facility] Chloride 109 96 - 110 mmol/L LAB CHEMISTRY METHOD 12/26/2024 7:33 AM [facility] CO2 23 21 - 32 mmol/L LAB CHEMISTRY METHOD 12/26/2024 7:33 AM [facility] Anion Gap 5 3 - 11 LAB CHEMISTRY METHOD 12/26/2024 7:33 AM [facility] Glucose 93 70 - 100 mg/dL LAB CHEMISTRY METHOD 12/26/2024 7:33 AM [facility] BUN 19 5 - 25 mg/dL LAB CHEMISTRY METHOD 12/26/2024 7:33 AM [facility] Creatinine 0.74 0.50 - 1.10 mg/dL LAB CHEMISTRY METHOD 12/26/2024 7:33 AM [facility] eGFR 108 >=60 mL/min/1. 73m2 LAB CHEMISTRY METHOD 12/26/2024 7:33 AM [facility] Comment:Calculation based on the Chronic Kidney Disease Epidemiology Collaboration (CKD-EPI) equation refit without adjustment for race. BUN/Creatinine Ratio 25.7 LAB CHEMISTRY METHOD 12/26/2024 7:33 AM [facility] Calcium 8.7 8.5 - 10.5 mg/dL LAB CHEMISTRY METHOD 12/26/2024 7:33 AM [facility] Blood Venous blood specimen / Unknown Venipuncture / Unknown 12/26/2024 6:04 AM EDT 12/26/2024 7:00 AM EDT Ruba DUNAWAY LAB BLOOD ORDERABLES Final Result [facility] [address] [place] [address], * HIV Screening (09/14/2016) Pathologist [facility] HIV Screening abstracted Historical Provider HEALTH MAINTENANCE Final Result * Hepatitis C Screening (09/14/2016) Hepatitis C Screening abstracted Historical Provider HEALTH MAINTENANCE Final Result * (ABNORMAL) Lipid panel (07/20/2016) LDL/HDL Ratio 3 0 - 4 Triglycerides 197(A) 0 - 150 mg/dL Cholesterol 147 0 - 200 mg/dL HDL 50 >=40 mg/dL LDL Cholesterol 58 0 - 100 mg/dL Blood Venous blood specimen / Unknown Historical Provider LAB BLOOD ORDERABLES Raquel l Result * Pap Smear (06/04/2016) Pathologist [facility] Pap smear negative, abstracted Historical Provider HEALTH MAINTENANCE Final Result [...] currently active code status orders. Care Teams Rural Route Mail Carrier Relationship Specialty Start Date End Date Mya Palm PA [address] [place] [address] PCP - General 10/12/24
[2025-07-10 02:54] LABS: COVID-19 Test Negative (Negative); IDNOW Serial# 58CA691E; Influenza B2 Negative (Negative)
[2025-07-10 04:40] VITALS: BP 115/86; PULSE 97; RESP 18; TEMP 36.4; O2SAT 99
== END 2025-07-10 04:41 | disposition home or self-care (01) ==
PROVIDERS: Emergency Provider Emergency Medicine; PCP Dentist General Practice
DX: J40 Bronchitis, not specified as acute or chronic (principal); R05.9 Cough, unspecified; Z03.818 Encounter for observation for suspected exposure to other biological agents ruled out; F17.210 Nicotine dependence, cigarettes, uncomplicated
CPT/HCPCS: 71045; 87502; 87635; 93005; 96372; 99284; J0737

== ENCOUNTER → 2025-07-10 02:33 | Outpatient (BNV) | payer MEDICAID, SELFPAY | PROVIDERS: Emergency Provider Emergency Medicine; PCP Dentist General Practice; Visit Provider Student in an Organized Health Care Education/Training Program | DX: R06.02 Shortness of breath (principal) | CPT/HCPCS: 71045 ==

== ENCOUNTER → 2025-07-10 02:37 | Outpatient (BNV) | payer MEDICAID, SELFPAY | PROVIDERS: Emergency Provider Emergency Medicine; PCP Dentist General Practice; Visit Provider Internal Medicine Cardiovascular Disease | DX: R94.31 Abnormal electrocardiogram [ECG] [EKG] (principal); R07.9 Chest pain, unspecified | CPT/HCPCS: 93010 ==